=== PATIENT | male | born 1935 | race Caucasian/White ===

== ENCOUNTER 2016-09-26 11:02 | Inpatient (IN) | payer MEDICARE ==
[2016-09-26 11:29] LABS: Glucose,Whole Blood 100 mg/dL (75-99)
[2016-09-26] MEDS ORDERED: SODIUM CHLORIDE 0.9% 500 ML IV ONE (11:38)
[2016-09-26] MEDS ORDERED: MEROPENEM 2 GM in SODIUM CHLORIDE 0.9% 100 ML IVPB STA (11:39)
[2016-09-26 12:29] LABS: ALT 46 U/L (21-72); AST 49 U/L (17-59); Alkaline Phosphatase 89 U/L (38-126); Anion Gap 14 mmol/L; Blood Urea Nitrogen 16 mg/dL (9-20); Calcium 8.8 mg/dL (8.4-10.2); Carbon Dioxide 25 mmol/L (22-30); Chloride 94 mmol/L (98-107); Glucose 99 mg/dL (74-99); Non-African American GFR(MDRD) >60 (>60 ml/min/1.73 sqM); Potassium 3.9 mmol/L (3.5-5.1); Sodium 133 mmol/L (137-145); Total Bilirubin 0.6 mg/dL (0.2-1.3)
--- NOTE | 2016-09-26 12:33 | XR ---
EXAMINATION TYPE: XR chest 2V DATE OF EXAM: 09/26/2016 12:29 PM COMPARISON: 07/27/2016 TECHNIQUE: PA and lateral views submitted. HISTORY: Facial drooping and weakness FINDINGS: Postsurgical change noted. Hyperinflation suggests COPD. Arthropathy of the shoulders noted. Apical pleural thickening seen. No consolidation or pleural effusion. No pneumothorax. Degenerative c hange of the spine noted. IMPRESSION: 1. No acute process. Correlate for COPD.
[2016-09-26 12:37] LABS: Appearance,Urine Clear (Clear); Bacteria,Urine Rare /hpf; Bilirubin,Urine Negative (Negative); Glucose,Urine (UA) Negative (Negative); Ketones,Urine 2+ (Negative); Leukocyte Esterase,Urine Negative (Negative); Mucus,Urine Rare /hpf; Nitrite,Urine Negative (Negative); PH, Urine 5.5 (5.0-8.0); Particle Count 9125; Protein,Urine 1+ (Negative); Specific Gravity,Urine 1.016 (1.001-1.035); Squamous Epithelial Cell,Urine <1 /hpf (0-4); UA Billing (MACRO vs. MICRO) MICRO; Urobilinogen,Urine <2.0 mg/dL (<2.0); WBC,Urine 2 /hpf (0-5)
[2016-09-26 12:37] LABS: Aty Lym Flag Slight; CH 30.6; CHCM 33.5; HCT 41.7 % (39.0-53.0); HDW 2.59; MCH 29.9 pg (25.0-35.0); MCHC 32.6 g/dL (31.0-37.0); MCV 91.7 fL (80.0-100.0); Mean Platelet Volume 6.3; RBC 4.55 m/uL (4.30-5.90); WBC 4.6 k/uL (3.8-10.6); WBC (Perox) 4.81
[2016-09-26 12:39] LABS: HGB 13.6 gm/dL (13.0-17.5)
[2016-09-26 12:49] LABS: Partial Thromboplastin Time 26.9 sec (22.0-30.0); Prothrombin Time 9.9 sec (9.0-12.0)
[2016-09-26 12:52] LABS: Add Differential Manual Differential
[2016-09-26 12:54] LABS: Manual Review Performed; Nucleated Red Blood Cells 0 /100 WBC (0-0); Total Cells Counted 100
[2016-09-26 13:06] LABS: Creatine Kinase MB 2.4 ng/mL (0.0-2.4); Troponin I 0.021 ng/mL (0.000-0.034)
--- NOTE | 2016-09-26 13:06 | CT ---
EXAMINATION TYPE: CT brain wo con DATE OF EXAM: 09/26/2016 12:59 PM COMPARISON: 12/12/2015 INDICATION: Patient complains of right side facial droop and leaning to the right. DLP: 1064 mGycm, Automated exposure control for dose reduction was used. CONTRAST: None CT of the brain is performed utilizing 3 mm thick sections through the posterior fossa and 3 mm thick sections through the remaining calvarium. Study is performed within 24 hours of arrival to the hosp [facility]. No abnormal hyperdensity is present to suggest an acute intracranial hemorrhage. No mass lesion is evident. No acute infarcts are evident. Periventricular white matter hypodensity is present Ventricles and sulci are prominent for the patient age. No temporal horn dilatation is evident. Owens nt cavum septum. Given puree, normal variants are present. There is mucosal thickening through ethmoid air cells. Mucosal thickening is within the left sphenoid sinus and some minimal within the right sphenoid sinus. The frontal sinuses are hypoplastic and cont ain mucosal thickening. No significant change from the November 2015 comparison is evident. IMPRESSIONS: 1. Atrophy with mild periventricular white matter ischemic change. 2. Scattered areas of mucosal thickening. Correlate for pansinusitis.
--- NOTE | 2016-09-26 14:34 | ED ---
General Adult HPI - General Chief complaint: Weakness Stated complaint: Weakness Time Seen by Provider: 09/26/16 11:04 Source: patient Mode of arrival: EMS Limitations: physical limitation - History of Present Illness Initial comments: Presented with generalized weakness presented with a tachycardia he had sinus tachycardia with a ventricular rate of 147 and he also felt weak and he had a fever has been coughing and he had a facial droop his daughter seen him last night he was normal but now she confirms that he has a facial droop he has no other deficits she is able to move all his extremities but he does feel weak he is able to talk he is able to comprehend all the information 1 arm is now weaker than the other one leg is not weak in the other initially was slow to respond but appropriate. He denies any headaches no neck stiffness no chest pain or shortness of breath no abdominal pain no frequency urgency dysuria Severity scale (1-10): 0 - Related Data Home Medications Medication Instructions Recorded Confirmed amLODIPine BESYLATE/BENAZEPRIL 1 cap PO DAILY 03/08/14 09/26/16 [Lotrel 5-10 mg Capsule] Budesonide-Formot 160-4.5 Mcg 2 puff INHALATION RT-BID PRN 12/27/14 09/26/16 [Symbicort 160-4.5 Mcg Inhaler] Ipratropium-Albuterol Nebulize 3 ml INHALATION RT-TID 05/20/16 09/26/16 [Duoneb 0.5 mg-3 mg/3 ml Soln] Tamsulosin HCl [Flomax] 0.4 mg PO DAILY 05/20/16 09/26/16 Furosemide [Lasix] 40 mg PO DAILY PRN 05/23/16 09/26/16 Previous Rx's Medication Instructions Recorded Metoprolol Succinate (ER) [Toprol 25 mg PO BID #60 tab.er.24h 07/31/16 XL] Allergies Allergy/AdvReac Type Severity Reaction Status Date / Time amoxicillin Allergy Unknown Verified 09/26/16 11:49 Penicillins Allergy Unknown Verified 09/26/16 11:49 Review of Systems ROS Statement: Those systems with pertinent positive or pertinent negative responses have been documented in the HPI. ROS Other: All systems not noted in ROS Statement are negative. Past Medical History Past Medical History: Asthma, Coronary Artery Disease (CAD), Cancer, COPD, Hypertension, Osteoarthritis (OA), Prostate Disorder, Respiratory Disorder Additional Past Medical History / Comment(s): PT STATES CABG 10 YEARS AGO. RADIATION THERAPY FOR PROSTATE CA 15 YEARS AGO History of Any Multi-Drug Resistant Organisms: None Reported Past Surgical History: Coronary Bypass/CABG, Heart Catheterization Additional Past Surgical History / Comment(s): right carotid endarectomy Past Anesthesia/Blood Transfusion Reactions: No Reported Reaction Past Psychological History: No Psychological Hx Reported Smoking Status: Former smoker Past Alcohol Use History: None Reported Past Drug Use History: None Reported - Past Family History Father Family Medical History: CVA/TIA, Myocardial Infarction ([place]), Osteoarthritis ([place]) , Prostate Disorder General Exam - General Exam Comments Initial Comments: General: The patient is awake and alert, in no distress, and does not appear acutely ill. GCS is 15 Skin: Skin is warm and dry and no rashes or lesions are noted. Eye: Pupils are equal, round and reactive to light, extra-ocular movements are intact; there is normal conjunctiva bilaterally. Ears, nose, mouth and throat: There are moist mucous membranes and no oral lesions. It is right-sided facial droop Neck: The neck is supple, there is no tenderness or JVD. Cardiovascular: There is a regular rate and rhythm. No murmur, rub or gallop is appreciated. On arrival he had sinus tachycardia, his heart rate was 140 Respiratory: To auscultation bilateral, noticed decreased breath sounds at the bases Gastrointestinal: Soft, non-distended, non-tender abdomen without masses or organomegaly noted. There is no rebound or guarding present. Bowel sounds are unremarkable. Back: There is no tenderness to palpation in the midline. There is no obvious deformity. Musculoskeletal: Normal ROM, no tenderness, There is no pedal edema. There is no calf tenderness or swelling. No cords were appreciated. Neurological: CN II-XII intact, Cranial nerves III through XII are intact. There are no obvious motor or sensory deficits. Coordination appears grossly intact. Speech is normal. Psychiatric: Cooperative, appropriate mood & affect, normal judgment. Limitations: physical limitation Course Vital Signs 09/26/16 09/26/16 09/26/16 11:02 11:15 11:30 Temperature 99.0 F Pulse Rate 131 H 125 H 125 H Respiratory 22 Rate Blood Pressure 140/70 148/70 107/72 Blood Pressure [Right Arm Supine] O2 Sat by Pulse 90 L 97 97 Oximetry 09/26/16 09/26/16 09/26/16 11:45 12:00 13:00 Temperature 101.7 F H Pulse Rate 125 H 125 H Respiratory 18 Rate Blood Pressure 116/59 148/70 Blood Pressure 137/67 [Right Arm Supine] O2 Sat by Pulse 97 97 99 Oximetry 09/26/16 09/26/16 13:36 13:46 Temperature 99.1 F Pulse Rate 93 92 Respiratory 22 18 Rate Blood Pressure 149/67 135/70 Blood Pressure [Right Arm Supine] O2 Sat by Pulse 98 99 Oximetry EKG Findings - EKG Comments: EKG Findings:: EKG shows normal rather sinus tachycardia ventricular rate is 147 RI interval is 134 QRS duration is 108 QT/QTc is 268/419 review of this EKG does not show any ST elevation or ST depression Medical Decision Making - Lab Data Result diagrams: 09/26/16 11:38 09/26/16 11:38 Lab Results 09/26/16 09/26/16 09/26/16 Range/Units 11:26 11:38 11:38 WBC 4.6 (3.8-10.6) k/uL RBC 4.55 (4.30-5.90) m/uL Hgb 13.6 D (13.0-17.5) gm/dL Hct 41.7 (39.0-53.0) % MCV 91.7 (80.0-100.0) fL MCH 29.9 (25.0-35.0) pg MCHC 32.6 (31.0-37.0) g/dL RDW 15.0 (11.5-15.5) % Plt Count 198 (150-450) k/uL Neutrophils % (Manual) 56.0 % Lymphocytes % (Manual) 35.0 % Monocytes % (Manual) 9.0 % Neutrophils # (Manual) 2.6 (1.3-7.7) k/uL Lymphocytes # (Manual) 1.6 (1.0-4.8) k/uL Monocytes # (Manual) 0.4 (0-1.0) k/uL Nucleated RBCs 0 (0-0) /100 WBC Manual Slide Review Performed Poikilocytosis (manual Present PT (9.0-12.0) sec INR (<1.1) APTT (22.0-30.0) sec Sodium 133 L (137-145) mmol/L Potassium 3.9 (3.5-5.1) mmol/L Chloride 94 L (98-107) mmol/L Carbon Dioxide 25 (22-30) mmol/L Anion Gap 14 mmol/L BUN 16 (9-20) mg/dL Creatinine 0.72 (0.66-1.25) mg/dL Est GFR (MDRD) Af Amer >60 (>60 ml/min/1.73 sqM) Est GFR (MDRD) Non-Af >60 (>60 ml/min/1.73 sqM) Glucose 99 (74-99) mg/dL POC Glucose (mg/dL) 100 H (75-99) mg/dL POC Glu Educational Audiologist ID Smitha Gaines Plasma Lactic Acid Asif (0.7-2.0) mmol/L Calcium 8.8 (8.4-10.2) mg/dL Total Bilirubin 0.6 (0.2-1.3) mg/dL AST 49 (17-59) U/L ALT 46 (21-72) U/L Alkaline Phosphatase 89 (38-126) U/L Total Creatine Kinase (55-170) U/L CK-MB (CK-2) (0.0-2.4) ng/mL CK-MB (CK-2) Rel Index Troponin I (0.000-0.034) ng/mL Total Protein 7.0 (6.3-8.2) g/dL Albumin 4.2 (3.5-5.0) g/dL Urine Color Urine Appearance (Clear) Urine pH (5.0-8.0) Ur Specific [place] (1.001-1.035) Urine Protein (Negative) Urine Glucose (UA) (Negative) Urine Ketones (Negative) Urine Blood (Negative) Urine Nitrate (Negative) Urine Bilirubin (Negative) Urine Urobilinogen (<2.0) mg/dL Ur Leukocyte Esterase (Negative) Urine WBC (0-5) /hpf Ur Squamous Epith Cells (0-4) /hpf Urine Bacteria (None) /hpf Urine Mucus (None) /hpf Influenza Type A RNA (Not Detectd) Influenza Type B (PCR) (Not Detectd) 09/26/16 09/26/16 09/26/16 Range/Units 11:38 11:38 11:38 WBC (3.8-10.6) k/uL RBC (4.30-5.90) m/uL Hgb (13.0-17.5) gm/dL Hct (39.0-53.0) % MCV (80.0-100.0) fL MCH (25.0-35.0) pg MCHC (31.0-37.0) g/dL RDW (11.5-15.5) % Plt Count (150-450) k/uL Neutrophils % (Manual) % Lymphocytes % (Manual) % Monocytes % (Manual) % Neutrophils # (Manual) (1.3-7.7) k/uL Lymphocytes # (Manual) (1.0-4.8) k/uL Monocytes # (Manual) (0-1.0) k/uL Nucleated RBCs (0-0) /100 WBC Manual Slide Review Poikilocytosis (manual PT 9.9 (9.0-12.0) sec INR 1.0 (<1.1) APTT 26.9 (22.0-30.0) sec Sodium (137-145) mmol/L Potassium (3.5-5.1) mmol/L Chloride (98-107) mmol/L Carbon Dioxide (22-30) mmol/L Anion Gap mmol/L BUN (9-20) mg/dL Creatinine (0.66-1.25) mg/dL Est GFR (MDRD) Af Amer (>60 ml/min/1.73 sqM) Est GFR (MDRD) Non-Af (>60 ml/min/1.73 sqM) Glucose (74-99) mg/dL POC Glucose (mg/dL) (75-99) mg/dL POC Glu Educational Audiologist ID Plasma Lactic Acid Asif 1.4 (0.7-2.0) mmol/L Calcium (8.4-10.2) mg/dL Total Bilirubin (0.2-1.3) mg/dL AST (17-59) U/L ALT (21-72) U/L Alkaline Phosphatase (38-126) U/L Total Creatine Kinase 377 H (55-170) U/L CK-MB (CK-2) 2.4 (0.0-2.4) ng/mL CK-MB (CK-2) Rel Index 0.6 Troponin I 0.021 (0.000-0.034) ng/mL Total Protein (6.3-8.2) g/dL Albumin (3.5-5.0) g/dL Urine Color Urine Appearance (Clear) Urine pH (5.0-8.0) Ur Specific [place] (1.001-1.035) Urine Protein (Negative) Urine Glucose (UA) (Negative) Urine Ketones (Negative) Urine Blood (Negative) Urine Nitrate (Negative) Urine Bilirubin (Negative) Urine Urobilinogen (<2.0) mg/dL Ur Leukocyte Esterase (Negative) Urine WBC (0-5) /hpf Ur Squamous Epith Cells (0-4) /hpf Urine Bacteria (None) /hpf Urine Mucus (None) /hpf Influenza Type A RNA (Not Detectd) Influenza Type B (PCR) (Not Detectd) 09/26/16 09/26/16 Range/Units 11:56 11:57 WBC (3.8-10.6) k/uL RBC (4.30-5.90) m/uL Hgb (13.0-17.5) gm/dL Hct (39.0-53.0) % MCV (80.0-100.0) fL MCH (25.0-35.0) pg MCHC (31.0-37.0) g/dL RDW (11.5-15.5) % Plt Count (150-450) k/uL Neutrophils % (Manual) % Lymphocytes % (Manual) % Monocytes % (Manual) % Neutrophils # (Manual) (1.3-7.7) k/uL Lymphocytes # (Manual) (1.0-4.8) k/uL Monocytes # (Manual) (0-1.0) k/uL Nucleated RBCs (0-0) /100 WBC Manual Slide Review Poikilocytosis (manual PT (9.0-12.0) sec INR (<1.1) APTT (22.0-30.0) sec Sodium (137-145) mmol/L Potassium (3.5-5.1) mmol/L Chloride (98-107) mmol/L Carbon Dioxide (22-30) mmol/L Anion Gap mmol/L BUN (9-20) mg/dL Creatinine (0.66-1.25) mg/dL Est GFR (MDRD) Af Amer (>60 ml/min/1.73 sqM) Est GFR (MDRD) Non-Af (>60 ml/min/1.73 sqM) Glucose (74-99) mg/dL POC Glucose (mg/dL) (75-99) mg/dL POC Glu Educational Audiologist ID Plasma Lactic Acid Asif (0.7-2.0) mmol/L Calcium (8.4-10.2) mg/dL Total Bilirubin (0.2-1.3) mg/dL AST (17-59) U/L ALT (21-72) U/L Alkaline Phosphatase (38-126) U/L Total Creatine Kinase (55-170) U/L CK-MB (CK-2) (0.0-2.4) ng/mL CK-MB (CK-2) Rel Index Troponin I (0.000-0.034) ng/mL Total Protein (6.3-8.2) g/dL Albumin (3.5-5.0) g/dL Urine Color Yellow Urine Appearance Clear (Clear) Urine pH 5.5 (5.0-8.0) Ur Specific [place] 1.016 (1.001-1.035) Urine Protein 1+ H (Negative) Urine Glucose (UA) Negative (Negative) Urine Ketones 2+ H (Negative) Urine Blood Small H (Negative) Urine Nitrate Negative (Negative) Urine Bilirubin Negative (Negative) Urine Urobilinogen <2.0 (<2.0) mg/dL Ur Leukocyte Esterase Negative (Negative) Urine WBC 2 (0-5) /hpf Ur Squamous Epith Cells <1 (0-4) /hpf Urine Bacteria Rare H (None) /hpf Urine Mucus Rare H (None) /hpf Influenza Type A RNA Not Detected (Not Detectd) Influenza Type B (PCR) Detected A (Not Detectd) Critical Care Time Total Critical Care Time: 40 Critical Care Time: On arrival his heart rate was greater than 140, we hydrated him, he was started some antibiotics considering he had a fever and tachycardia considering the differential diagnosis of sepsis we cultured urine as well as blood tests x- rays were done head CT was ordered considering his facial droop, he did know his about his baseline status find his daughter and sister arrived and they confirmed that this facial droop is new but they have no idea about the timing of onset that's why he is not a candidate for any thrombolytics, he be admitted under Dr. Roman service neurologist be consulted DR. KING WELL INFECTIOUS DISEASE DOCTOR Disposition Clinical Impression: Sepsis, Tachycardia, CVA (cerebral vascular accident), Fever, Influenza A Disposition: ADMITTED IP TO THIS HOSP Condition: Fair
[2016-09-26] MEDS ORDERED: NALOXONE 0.4 MG/ML 1 ML VIAL IV PRN (15:07)
[2016-09-26] MEDS ORDERED: ASPIRIN 81 MG CHEW PO STA (15:12)
[2016-09-26] MEDS ORDERED: FUROSEMIDE 40 MG TAB PO PRN (15:13)
[2016-09-26] MEDS ORDERED: SYMBICORT 160-4.5 MCG INHALER INHALATION PRN (15:13)
[2016-09-26] MEDS: SODIUM CHLORIDE 0.9% 1,000 ML IV SCH ×2 (19:15→22:56)
[2016-09-26] MEDS ORDERED: IPRATROPIUM-ALBUTEROL 3 ML NEB INHALATION SCH (20:00)
[2016-09-26] MEDS: IPRATROPIUM-ALBUTEROL 3 ML NEB INHALATION SCH (20:22)
[2016-09-26] MEDS: BUDESONIDE 1 MG/2 ML NEBU INHALATION SCH (20:22)
[2016-09-26] MEDS: METOPROLOL SUCCINATE (ER) 25 MG TAB.ER.24H PO SCH (22:55)
[2016-09-26] MEDS: MEROPENEM 1 GM in SODIUM CHLORIDE 0.9% 100 ML IVPB SCH (22:55)
[2016-09-26] MEDS: OSELTAMIVIR 75 MG CAP PO SCH (22:55)
[2016-09-27] MEDS: IPRATROPIUM-ALBUTEROL 3 ML NEB INHALATION SCH ×5 (05:39→20:45)
[2016-09-27] MEDS ORDERED: IPRATROPIUM-ALBUTEROL 3 ML NEB INHALATION PRN (05:41)
[2016-09-27] MEDS: BUDESONIDE 1 MG/2 ML NEBU INHALATION SCH ×2 (08:01→20:45)
--- NOTE | 2016-09-27 08:32 | HP ---
DATE OF ADMISSION: 09/26/2016 HISTORY OF PRESENT ILLNESS: An 81-year-old white with significant weakness and pneumonia and shortness of breath and tachycardia worsening over the past week. He had a heart rate in the 147. He has fever, coughing. He is positive for ( ) flu B in the ER and pneumonia and admitted for respiratory distress and COPD exacerbation. He also has severe depression since his has after being for over 50 some years in the last week. HOME MEDICATIONS: 1. Amlodipine benazepril one daily. 2. Symbicort. 3. DuoNeb. 4. Flomax. 5. Lasix. ALLERGIES: AMOXICILLIN and PENICILLIN. REVIEW OF SYSTEMS: PSYCH: Depression. ENDOCRINE: He is losing weight because his . He is severely depressed. Flat affect. CARDIAC: He has a history of coronary artery disease. PULMONARY: He has a history of COPD, asthma, hypertension. : History of prostate disorder. IMMUNE: Negative. Other 14-point review of systems negative except for as mentioned above. He had prostate cancer for 15 years, he had radiation therapy. CABG 10 years, right carotid endarterectomy. He lives at home with his family members, having caregiver watch over him. He is a former smoker. No alcohol. No drugs. PAST FAMILY HISTORY: Father had CVA, TIA, myocardial infarction, osteoarthritis, prostate disorder. Temperature 99.1. Pulse is 120s to 180s. Respiratory rate 18 to 22. Blood pressure is 107 to 140 over 70 to 72, O2 of 99% on room air. Temperature 101.7. EKG shows sinus tachycardia. White count is normal. Hemoglobin is normal. Sodium is 135. BUN and creatinine are 16 and 0.72. Positive ( ). Chest x-ray shows COPD. Lactic acid 1.4. He has elevated creatine kinase due to mild rhabdomyolysis. Negative Troponins. ASSESSMENT: 1. Acute chronic obstructive pulmonary disease exacerbation. 2. Acute ( ) flu type B. 3. Sinus tachycardia. 4. Fever. Influenza A. 5. Prior cerebrovascular accident. IV steroids, updrafts, Tamiflu, IV antibiotics. Please see further orders.
[2016-09-27] MEDS: SODIUM CHLORIDE 0.9% 1,000 ML IV SCH ×2 (09:49→18:52)
[2016-09-27] MEDS: amLODIPine 5 MG TAB PO SCH (09:50)
[2016-09-27] MEDS: OSELTAMIVIR 75 MG CAP PO SCH ×2 (09:50→21:21)
[2016-09-27] MEDS: TAMSULOSIN 0.4 MG CAP.ER.24H PO SCH (09:51)
[2016-09-27] MEDS: LISINOPRIL 10 MG TAB PO SCH (09:51)
[2016-09-27] MEDS: METOPROLOL SUCCINATE (ER) 25 MG TAB.ER.24H PO SCH ×2 (09:51→21:21)
[2016-09-27] MEDS: MEROPENEM 1 GM in SODIUM CHLORIDE 0.9% 100 ML IVPB SCH (10:00)
[2016-09-27] MEDS: ACETAMINOPHEN TAB 325 MG TAB PO PRN (10:00)
[2016-09-27] MEDS ORDERED: LORazepam 2 MG/ML SYRINGE IV PRN (11:00)
--- NOTE | 2016-09-27 11:42 | P.CNPUL ---
History of Present Illness Consult date: 09/27/16 Reason for consult: cough Chief complaint: Fever , cough History of present illness: This is an 81-year-old male who presented to emergency department complaining of generalized weakness and shortness of breath. He also complains of fever and cough. The patient is a very poor historian and there is no family at bedside. Most of the history is obtained from the medical record. The patient was found to be positive for influenza B in the emergency department. His chest x-ray does not show pneumonia at this time. It does show evidence of COPD. The patient does state that he has COPD and uses a "puffer." He did have a temperature of 101.7 in the emergency department. He also had sinus tachycardia in the emergency department. He is a former smoker. He states he lives with his daughter. Review of Systems All systems: negative Past Medical History Past Medical History: Asthma, Coronary Artery Disease (CAD), Cancer, COPD, Hypertension, Osteoarthritis (OA), Prostate Disorder, Respiratory Disorder Additional Past Medical History / Comment(s): PT STATES CABG 10 YEARS AGO. RADIATION THERAPY FOR PROSTATE CA 15 YEARS AGO History of Any Multi-Drug Resistant Organisms: None Reported Past Surgical History: Coronary Bypass/CABG, Heart Catheterization Additional Past Surgical History / Comment(s): right carotid endarectomy Past Anesthesia/Blood Transfusion Reactions: No Reported Reaction Past Psychological History: No Psychological Hx Reported Smoking Status: Former smoker Past Alcohol Use History: None Reported Past Drug Use History: None Reported - Past Family History Father Family Medical History: CVA/TIA, Myocardial Infarction ([place]), Osteoarthritis ([place]) , Prostate Disorder Medications and Allergies Home Medications Medication Instructions Recorded Confirmed Type amLODIPine BESYLATE/BENAZEPRIL 1 cap PO DAILY 03/08/14 09/26/16 History [Lotrel 5-10 mg Capsule] Budesonide-Formot 160-4.5 Mcg 2 puff INHALATION RT-BID PRN 12/27/14 09/26/16 History [Symbicort 160-4.5 Mcg Inhaler] Ipratropium-Albuterol Nebulize 3 ml INHALATION RT-TID 05/20/16 09/26/16 History [Duoneb 0.5 mg-3 mg/3 ml Soln] Tamsulosin HCl [Flomax] 0.4 mg PO DAILY 05/20/16 09/26/16 History Furosemide [Lasix] 40 mg PO DAILY PRN 05/23/16 09/26/16 History Allergies Allergy/AdvReac Type Severity Reaction Status Date / Time amoxicillin Allergy Unknown Verified 09/26/16 11:49 Penicillins Allergy Unknown Verified 09/26/16 11:49 Physical Exam Osteopathic Statement: *. No significant issues noted on an osteopathic structural exam other than those noted in the History and Physical/Consult. Vitals: Vital Signs Temp Pulse Pulse Resp BP BP Pulse Ox 09/27/16 08:13 84 09/27/16 08:01 72 09/27/16 05:47 75 09/27/16 05:39 75 09/27/16 04:00 97.8 F 80 26 H 155/80 96 09/27/16 00:00 98.6 F 77 20 128/70 90 L 09/26/16 19:59 98.7 F 09/26/16 19:51 97.5 F L 82 20 136/67 97 09/26/16 19:46 88 16 131/66 97 09/26/16 18:49 92 18 132/65 97 09/26/16 16:40 72 18 135/64 98 09/26/16 15:56 88 09/26/16 15:46 90 Intake and Output 09/26/16 09/27/16 09/27/16 22:59 06:59 14:59 Intake Total 1680 Balance 1680 Intake: IV 1200 Meropenem 1 gm In Sodium 200 Chloride 0.9% 100 ml @ 200 mls/hr IVPB Q12HR [facility] Rx#:[id number] Sodium Chloride 0.9% 500 1000 ml @ 999 mls/hr IV .Q31M ONE Rx#:[id number] Oral 480 Other: Voiding Method Diaper # Voids 1 Weight 72.575 kg 68 kg Gen.: Patient is alert, poor historian Cardiovascular: Regular rate and rhythm, S1/S2 Lungs: Coarse breath sounds bilaterally Abdomen: Soft nontender nondistended positive bowel sounds Extremities: Left lower extremity dressing clean dry and intact, no edema Results - Laboratory Findings CBC and BMP: 09/26/16 11:38 09/26/16 11:38 PT/INR, D-dimer PT 9.9 sec (9.0-12.0) 09/26/16 11:38 INR 1.0 (<1.1) 09/26/16 11:38 - Diagnostic Findings Chest x-ray: report reviewed, image reviewed Assessment and Plan Plan: Acute exacerbation of COPD Influenza B positive History of tobacco abuse History of CVA Sepsis with SIRS Dehydration Left foot decubitus ulcer POA History of prostate cancer History of coronary artery disease status post CABG History of CEA O2 to maintain saturation greater than equal to 88% Tamiflu Antibiotics: Meropenem per primary team Repeat chest x-ray in a.m. Bronchodilators and Pulmicort Sputum culture Incentive spirometry and pulmonary hygiene IV Solu-Medrol IV fluid hydration GI and DVT prophylaxis: Protonix and heparin SQ Thank you for this consultation we will continue to follow along
--- NOTE | 2016-09-27 12:48 | P.CNNES ---
History of Present Illness Consult date: 09/27/16 Reason for Consult: Patient with facial droop and weakness and possible stroke. History of Present Illness: This patient is a 81-year-old right-handed white male who was brought into the emergency room yesterday for symptoms of generalized weakness and shortness of breath. Patient lives with his daughter and apparently she noted that he was having high-grade fever as well as some evidence of right-sided facial droop. She was concerned as his fever was quite high and he was showing signs of worsening weakness. He was brought into the emergency room yesterday where he was further evaluated. The patient is a very poor historian and there is no family member at bedside to provide further history. Apparently in the ER he did undergo a computed tomography scan of the brain which revealed atrophy and mild periventricular white matter changes. Scattered areas of mucosal thickening and pansinusitis was noted as well. The patient's temperature in the ER was 101.7. He was also showing signs of severe sinus tachycardia. He has a history of having undergone CABG procedure about 10 years ago. He also has a history of prostate cancer. As noted he is a very poor historian. He is now stating that the right facial droop has been present previously. Both his daughter and a sister stated to the ER physician that the facial droop was new. Patient denies any weakness in his right arm or leg at this time. He was not felt to be a candidate for any thrombolytic agents as he was out of the therapeutic window. He is now being treated for influenza A as well. Given the new finding of right facial droop there is concern for possibility of ischemic stroke. He has now been admitted for a full stroke evaluation. His initial evaluation in the ER revealed his NIH stroke scale to be 2.0. Patient is now admitted and neurology has been consulted for further evaluation and recommendations. Review of Systems Constitutional: Denies chills, Denies fever Eyes: denies blurred vision, denies pain Ears, nose, mouth and throat: Denies headache, Denies sore throat Cardiovascular: Denies chest pain, Denies shortness of breath Respiratory: Denies cough Gastrointestinal: Denies abdominal pain, Denies diarrhea, Denies nausea, Denies vomiting Musculoskeletal: Denies myalgias Integumentary: Denies pruritus, Denies rash Neurological: Reports change in mentation, Reports confusion, Reports tingling, Denies numbness, Denies weakness Psychiatric: Denies anxiety, Denies depression Endocrine: Denies fatigue, Denies weight change Past Medical History Past Medical History: Asthma, Coronary Artery Disease (CAD), Cancer, COPD, Hypertension, Osteoarthritis (OA), Prostate Disorder, Respiratory Disorder Additional Past Medical History / Comment(s): PT STATES CABG 10 YEARS AGO. RADIATION THERAPY FOR PROSTATE CA 15 YEARS AGO History of Any Multi-Drug Resistant Organisms: None Reported Past Surgical History: Coronary Bypass/CABG, Heart Catheterization Additional Past Surgical History / Comment(s): right carotid endarectomy Past Anesthesia/Blood Transfusion Reactions: No Reported Reaction Past Psychological History: No Psychological Hx Reported Smoking Status: Former smoker Past Alcohol Use History: None Reported Past Drug Use History: None Reported - Past Family History Father Family Medical History: CVA/TIA, Myocardial Infarction ([place]), Osteoarthritis (OA) , Prostate Disorder Medications and Allergies Home Medications Medication Instructions Recorded Confirmed Type amLODIPine BESYLATE/BENAZEPRIL 1 cap PO DAILY 03/08/14 09/26/16 History [Lotrel 5-10 mg Capsule] Budesonide-Formot 160-4.5 Mcg 2 puff INHALATION RT-BID PRN 12/27/14 09/26/16 History [Symbicort 160-4.5 Mcg Inhaler] Ipratropium-Albuterol Nebulize 3 ml INHALATION RT-TID 05/20/16 09/26/16 History [Duoneb 0.5 mg-3 mg/3 ml Soln] Tamsulosin HCl [Flomax] 0.4 mg PO DAILY 05/20/16 09/26/16 History Furosemide [Lasix] 40 mg PO DAILY PRN 05/23/16 09/26/16 History Allergies Allergy/AdvReac Type Severity Reaction Status Date / Time amoxicillin Allergy Unknown Verified 09/26/16 11:49 Penicillins Allergy Unknown Verified 09/26/16 11:49 Physical Examination - Vital Signs Vital Signs: Vital Signs Temp Pulse Pulse Resp BP BP Pulse Ox 09/27/16 08:13 84 09/27/16 08:01 72 09/27/16 05:47 75 09/27/16 05:39 75 09/27/16 04:00 97.8 F 80 26 H 155/80 96 09/27/16 00:00 98.6 F 77 20 128/70 90 L 09/26/16 19:59 98.7 F 09/26/16 19:51 97.5 F L 82 20 136/67 97 09/26/16 19:46 88 16 131/66 97 09/26/16 18:49 92 18 132/65 97 09/26/16 16:40 72 18 135/64 98 09/26/16 15:56 88 09/26/16 15:46 90 Intake and Output 09/26/16 09/27/16 09/27/16 22:59 06:59 14:59 Intake Total 1680 Balance 1680 Intake: IV 1200 Meropenem 1 gm In Sodium 200 Chloride 0.9% 100 ml @ 200 mls/hr IVPB Q12HR ÓSCAR Rx#:[id number] Sodium Chloride 0.9% 500 1000 ml @ 999 mls/hr IV .Q31M ONE Rx#:[id number] Oral 480 Other: Voiding Method Diaper # Voids 1 Weight 72.575 kg 68 kg - Constitutional General appearance: average body habitus, cooperative - EENT EENT: PERRL, mucous membranes moist - Respiratory Respiratory: lungs clear, normal breath sounds - Cardiovascular Cardiovascular: regular rate, normal S1, normal S2 Extremities: no peripheral edema bilaterally - Gastrointestinal Gastrointestinal: normoactive bowel sounds - Integumentary Integumentary: normal - Neurologic Cranial nerve examination: PERRL, EOMI, VFF, V1/V2/V3 grossly intact, intact gag reflex, intact corneal reflex, facial droop (Patient has a right upper motor neuron facial weakness pattern.), normal palatal elevation Speech examination: intact Sensorimotor examination: intact Detailed motor examination: grossly full strength in all extremities Detailed sensory examination: intact Reflex and gait examination: intact Reflexes: 1+: ankle, bicep, knee, tricep - Musculoskeletal Musculoskeletal: no pain - Psychiatric Psychiatric: mood/affect appropriate, cooperative Results - Laboratory Findings CBC and BMP: 09/26/16 11:38 09/26/16 11:38 Assessment and Plan (1) Acute ischemic left MCA stroke Status: Acute Code(s): I63.512 - CEREB INFRC D/T UNSP OCCLS OR STENOS OF LEFT MID CEREB ART (2) Influenza A Status: Acute Code(s): J10.1 - FLU DUE TO OTH IDENT INFLUENZA VIRUS W OTH RESP MANIFEST (3) COPD exacerbation Status: Acute Code(s): J44.1 - CHRONIC OBSTRUCTIVE PULMONARY DISEASE W (ACUTE ) EXACERBATION (4) Paroxysmal a-fib Status: Acute Code(s): I48.0 - PAROXYSMAL ATRIAL FIBRILLATION Plan: This patient is a 81-year-old right-handed white male who was initially admitted to Hospital with symptoms of generalized weakness and shortness of breath. Apparently his daughter noticed right-sided facial droop which was a new finding. He was brought into the emergency room for further evaluation of possible stroke. He was found to have evidence of influenza A. He was septic and having fever at home as well. He is a very poor historian. His CAT scan of the brain failed to reveal any evidence of acute stroke. He has been severely depressed since the passing of his . He is been losing weight apparently as well. We have recommended a complete stroke evaluation for the patient. We will obtain an MRI of the brain for further evaluation of left hemispheric stroke. He does have a history of paroxysmal atrial fibrillation in the past as well. His overall prognosis at this time remains very guarded. Time with Patient: Greater than 30
[2016-09-27] MEDS: HEPARIN SODIUM,PORCINE 5,000 UNIT/ML 1 ML VIAL SQ SCH ×2 (16:00→23:49)
[2016-09-27] MEDS: FLUoxetine HCL 10 MG CAP PO SCH (16:00)
--- NOTE | 2016-09-27 16:00 | US ---
EXAMINATION TYPE: US carotid duplex BILAT DATE OF EXAM: 09/27/2016 3:34 PM COMPARISON: 12/13/2015 CLINICAL HISTORY: acute stroke. Previous right CCA surgery per patient. EXAM MEASUREMENTS: RIGHT: Peak Systolic Velocity (PSV) cm/sec ----- Right CCA: 95.8 ----- Right ICA: 106.4 ----- Right ECA: 199.6 ICA/CCA ratio: 1.1 RIGHT: End Diastole cm/sec ----- Right CCA: 28.9 ----- Right ICA: 33.8 ----- Right ECA: 20.7 LEFT: Peak Systolic Velocity (PSV) cm/sec ----- Left CCA: 51.4 ----- Left ICA: 0 ----- Left ECA: 176.3 ICA/CCA ratio: N/A- ICA total occlusion LEFT: End Diastole cm/sec ----- Left CCA: 51.4 ----- Left ICA: 0 ----- Left ECA: 176.3 VERTEBRALS (direction of flow): Right Vertebral: Antegrade Left Vertebral: Antegrade FINDINGS: Bilateral wall thickening. Plaque seen in bilateral CCA and bulbs. No flow detected in le ft ICA= total occlusion. High velocity seen in bilateral ECA's. IMPRESSION: 1. 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 Stable from previou s exam. 2. No significant hemodynamic stenosis involving the right internal carotid artery.
--- NOTE | 2016-09-27 17:03 | CONS ---
DATE OF CONSULTATION: 09/27/2016 REASON FOR CONSULTATION: Shortness of breath, sepsis and pneumonia. HISTORY OF PRESENT ILLNESS: Mr. Holland Garcia is well known to me. He is an 81-year-old male with significant cardiovascular disease. The patient is being followed in office as well. He presented into the emergency department with increasing shortness of breath and generalized weakness. Patient has been running a fever as well, was tachypneic, tachycardic as well and was evaluated in the emergency department. This patient eventually has been admitted to the hospital. The patient has been found to have influenza B and has been admitted to the hospital. Patient was seen, evaluated, examined earlier this morning. Care plan discussed with the primary service as well. In addition to above, patient has some weakness on the face as well. PAST MEDICAL HISTORY: Significant for coronary artery disease, history of severe COPD, hypertension, hypertensive cardiovascular disease, degenerative joint disease and osteoarthritis. PAST SURGICAL HISTORY: Significant for CABG, prostate cancer, history of cardiac cath, angiogram, history of RCA, right carotid endarterectomy. FAMILY HISTORY AND SOCIAL HISTORY: Lives with his . Extensive history of smoking and nicotine use, quit several years ago. ALLERGIES: AMOXICILLIN AND PENICILLIN. MEDICATIONS AT HOME: Lasix 40 mg daily, Tamsulosin 0.4 mg daily, DuoNeb updraft 4 times a day, Symbicort 160/4.5 two times a day, amlodipine is 1 capsule daily. REVIEW OF SYSTEMS: Otherwise unremarkable and noncontributory except as dictated above. The patient has been evaluated by neurology service as well. On examination, most recent vitals include blood pressure 155/80, respiratory rate in mid 20s, heart rate 80, temperature 98, saturation 95% to 96%. HEENT: Atraumatic, normocephalic. Pharynx is clear without exudate. NECK: Supple without lymphadenopathy, jugular venous distention or carotid bruit. LUNGS: Bilateral coarse breath sounds present with fine expiratory rhonchi. HEART: Regular rate and rhythm. ABDOMEN: Soft. No rebound or rigidity. EXTREMITIES: Patient does have component of right-sided weakness. CT scan of the head revealed some periventricular changes Other laboratory data reviewed as well. He. White cell count is 4600, hemoglobin 13 and hematocrit 41, platelets 198,000. PT, and PTT within normal limits. Sodium 130, potassium 3.9. BUN and creatinine 16 and 0.72. LFTs are normal. Urinalysis with a few WBC, RBCs are present. Influenza B is positive. The chest x-ray and EKG performed in the emergency room reviewed sinus tachycardia with incomplete right bundle branch block. The chest x-ray performed in the emergency department reviewed severe COPD-like changes. CT scan of the brain as above. IMPRESSION: 1. Severe sepsis associated with influenza, pneumonia, type B positive on PCR. 2. Severe chronic obstructive pulmonary disease, emphysema. 3. Possible left middle cerebral artery infarct versus transient ischemic attack with evidence of facial drooping on the right side. Neurology service is following 4. Coronary artery disease, hypertension, hypertensive cardiovascular disease. PLAN AND RECOMMENDATIONS: As above. Continue supportive care. Follow clinical course closely. Further recommendations pending Continue current medication. Will follow.
--- NOTE | 2016-09-27 18:02 | CONS ---
DATE OF CONSULTATION: 09/27/2016 REASON FOR CONSULTATION: 1. Acute influenza. 2. Question of pneumonia. 3. Left heel pressure ulcer. HISTORY OF PRESENT ILLNESS: The patient is an 81-year-old male who has been brought into the [facility] ER with mental status changes along with tachycardia and tachypnea. Apparently the patient also had a fever, and some coughing has been noticed along with a facial droop by his daughter. Subsequently the patient was evaluated by the ER physician. Patient did have a CT of the brain that was negative for any bleed. Some mucosal thickening was noticed. He did have a chest x-ray was reported as showing no acute process; correlate for COPD. Patient, who did have a fever of 101 degrees Fahrenheit, did have an influenza PCR sent. Influenza B was positive. His urine was negative. The patient did have a normal white count of 4.6. Patient has been started on Tamiflu to hospital and admitted to hospital. Meropenem was added for the concern about possible pneumonia. I was asked to see the patient for further recommendations. In addition, patient also has an unstageable pressure ulcer to his heel area. Apparently the patient has been mostly lying in bed after the of his with no significant change in his position. The patient is currently too lethargic and unable to answer any questions; no family member was available at the bedside, so most of the information has been obtained from review of the chart and talking to the nursing staff. Review of systems could not be reliably obtained; positives have been mentioned in the HPI. Past medical history is significant for: 1. Asthma. 2. Coronary artery disease. 3. COPD. 4. Hypertension. 5. Osteoarthritis. 6. Benign prostatic hypertrophy. 7. Prostate carcinoma. PAST SURGICAL HISTORY: 1. Coronary artery bypass grafting. 2. Heart catheterization. SOCIAL HISTORY: Remote history of smoking. No drinking or any drug use. FAMILY HISTORY: Father with history of CVA and AR. ALLERGIES: AMOXICILLIN and PENICILLIN; reaction not known. Medications currently include: 1. Tylenol. 2. DuoNeb. 3. Norvasc. 4. Pulmicort. 5. Prozac. 6. Heparin. 7. Zestril. 8. Ativan. 9. Solu-Medrol. 10. Toprol XL. 11. Narcan. 12. Tamiflu. 13. Protonix. 14. Flomax. On examination, blood pressure is 89/54. Prior to that the patient did have a normal blood pressure at 126/52. Pulse is 88, temperature 97.9. He is 98% on 2 L nasal cannula. General description is an elderly male lying in bed in no distress. No tachypnea or accessory muscle of respiration use. HEENT EXAMINATION: No pallor or scleral icterus. Oral mucous membrane dry. NECK: Trachea is central. No thyromegaly. LUNGS: Unlabored breathing. Clear to auscultation anteriorly. No wheeze or crackle. HEART: S1, S2. Regular rate and rhythm. ABDOMEN: Soft. No tenderness. No guarding or rigidity. EXTREMITIES: No edema of the feet. Examination of the left heel did show an unstageable pressure ulcer with black eschar, but there is no significant surrounding swelling, redness or any drainage. LABS: Hemoglobin is 13.6. White count is normal at 4.6. BUN of 16, creatinine 0.72. Liver enzymes are normal. Urine has been negative. Influenza B PCR was positive. Chest x-ray report negative for any pneumonia. DIAGNOSTIC IMPRESSION AND PLAN: 1. Patient with admission to hospital with tachypnea and tachycardia with a fever of 101.7, likely secondary to underlying acute influenza with influenza B PCR being positive. Clinically doubt pneumonia, as no significant findings on lung auscultation, chest report reported negative for any acute process, and the patient with no elevated white count. 2. Patient who does have an unstageable pressure ulcer on the left heel with a black eschar but no surrounding redness. PLAN: 1. The patient to continue Tamiflu 75 mg p.o. twice a day to finish a 5-day course of therapy. 2. Clinical suspicion low for pneumonia. Chest x-ray was negative. Will discontinue the Meropenem and watch him closely off antibiotics. 3. Will supply protective dressing to the left heel and keep it dry. Do not apply any cream or lotions. 4. Will follow up on the clinical condition and cultures to further adjust medication if needed. Thank you for this consultation. Will follow this patient along with you.
--- NOTE | 2016-09-27 19:05 | MR ---
EXAMINATION TYPE: MR brain wo con DATE OF EXAM: 09/27/2016 6:53 PM COMPARISON: NONE HISTORY: Patient complains of right side facial droop and leaning to the right. Acute left hemispher ic stroke. Standard multiplanar, multisequence MRI departmental protocol Multiplanar, multisequence images of the brain were acquired. Diffusion weighted imaging was performe d. FINDINGS: There is significant enlargement of the ventricles. There is subependymoma increased signal on the FLAIR images in the periventricular white matter. There is cerebral cortical atrophy. Brainst em is intact. There is no sign of a posterior fossa mass. There is no midline shift. There is no sign of intracranial hemorrhage. There are patchy 1 cm foci of cortical increased signal on the FLAIR alton ges in both parietal lobes. There is extensive mucosal thickening in all the paranasal sinuses. IMPRESSION: Severe normal pressure type hydrocephalus. Subependymal white matter signal probably related subepend ymal mild edema and pulsation. Multiple white matter cortical foci in both parietal lobes could relat e to multiple infarcts. Severe thinning of the corpus callosum. I do not suspect obstructive hydrocep halus in view of the relatively normal appearance of the fourth ventricle. Severe pansinusitis.
[2016-09-27] MEDS: methylPREDNISolone SOD SUCCI 40 MG/ML 1 ML VIAL IV SCH (21:21)
[2016-09-28] MEDS: SODIUM CHLORIDE 0.9% 1,000 ML IV SCH ×2 (06:07→08:38)
[2016-09-28 06:30] LABS: Basophils % (A) 0 %; CH 30.4; CHCM 32.8; Eosinophils % (A) 0 %; HCT 38.4 % (39.0-53.0); HDW 2.77; HGB 12.4 gm/dL (13.0-17.5); Luc # (Auto) 0.03; Luc % (Auto) 2; Lymphocytes # (A) 0.4 k/uL (1.0-4.8); Lymphocytes % (A) 23 %; MCHC 32.2 g/dL (31.0-37.0); MCV 93.2 fL (80.0-100.0); Mean Platelet Volume 6.4; Monocytes % (A) 3 %; Neutrophils # (A) 1.1 k/uL (1.3-7.7); Neutrophils % (A) 72 %; RBC 4.12 m/uL (4.30-5.90); RDW 14.8 % (11.5-15.5); WBC (Perox) 1.71
[2016-09-28 06:36] LABS: WBC 1.5 k/uL (3.8-10.6)
[2016-09-28 06:41] LABS: ALT 51 U/L (21-72); AST 44 U/L (17-59); Alkaline Phosphatase 74 U/L (38-126); Anion Gap 9 mmol/L; Blood Urea Nitrogen 18 mg/dL (9-20); Calcium 8.5 mg/dL (8.4-10.2); Carbon Dioxide 26 mmol/L (22-30); Chloride 100 mmol/L (98-107); Glucose 147 mg/dL (74-99); Non-African American GFR(MDRD) >60 (>60 ml/min/1.73 sqM); Sodium 135 mmol/L (137-145); Total Bilirubin 0.3 mg/dL (0.2-1.3)
[2016-09-28] MEDS: PANTOPRAZOLE 40 MG TABLET PO SCH (06:50)
[2016-09-28] MEDS: HEPARIN SODIUM,PORCINE 5,000 UNIT/ML 1 ML VIAL SQ SCH ×3 (07:54→23:26)
[2016-09-28] MEDS: amLODIPine 5 MG TAB PO SCH (07:54)
[2016-09-28] MEDS: methylPREDNISolone SOD SUCCI 40 MG/ML 1 ML VIAL IV SCH ×2 (07:54→20:11)
[2016-09-28] MEDS: FLUoxetine HCL 10 MG CAP PO SCH (07:54)
[2016-09-28] MEDS: LISINOPRIL 10 MG TAB PO SCH (07:54)
[2016-09-28] MEDS: OSELTAMIVIR 75 MG CAP PO SCH ×2 (07:55→20:11)
[2016-09-28] MEDS: METOPROLOL SUCCINATE (ER) 25 MG TAB.ER.24H PO SCH ×2 (07:55→20:11)
[2016-09-28] MEDS: TAMSULOSIN 0.4 MG CAP.ER.24H PO SCH (07:55)
[2016-09-28] MEDS: BUDESONIDE 1 MG/2 ML NEBU INHALATION SCH ×2 (08:13→20:28)
[2016-09-28] MEDS: IPRATROPIUM-ALBUTEROL 3 ML NEB INHALATION SCH ×4 (08:14→20:28)
[2016-09-28 08:15] LABS: Basophils % (A) 0 %; CH 30.4; CHCM 33.2; Eosinophils % (A) 1 %; HCT 37.7 % (39.0-53.0); HDW 2.78; HGB 12.6 gm/dL (13.0-17.5); Luc # (Auto) 0.03; Luc % (Auto) 2; Lymphocytes # (A) 0.4 k/uL (1.0-4.8); Lymphocytes % (A) 29 %; MCH 30.8 pg (25.0-35.0); MCHC 33.4 g/dL (31.0-37.0); Mean Platelet Volume 6.4; Monocytes % (A) 2 %; Neutrophils # (A) 0.9 k/uL (1.3-7.7); Neutrophils % (A) 66 %; RDW 14.7 % (11.5-15.5); WBC (Perox) 1.55
[2016-09-28 08:16] LABS: WBC 1.4 k/uL (3.8-10.6)
--- NOTE | 2016-09-28 08:23 | XR ---
EXAMINATION TYPE: XR chest 1V portable DATE OF EXAM: 09/28/2016 7:21 AM COMPARISON: 09/26/2016 INDICATION: Pneumonia TECHNIQUE: Single frontal view of the chest is obtained. FINDINGS: The heart size is normal. The pulmonary vasculature is normal. The lungs are clear. IMPRESSION: 1. No acute pulmonary process.
[2016-09-28 12:25] LABS: Glucose,Whole Blood 127 mg/dL (75-99)
[2016-09-28] MEDS: INSULIN LISPRO (humaLOG) 300 UNIT/3 ML VIAL SQ SCH ×3 (12:29→20:35)
--- NOTE | 2016-09-28 15:43 | P.PN ---
Subjective This patient is a 81-year-old right-handed white male who was admitted to hospital with shortness of breath and sepsis. Patient had evidence of severe sepsis and was positive for influenza type B. He also has a history of chronic obstructive pulmonary disease. Neurology was evaluating the patient for possible stroke. He had evidence of right facial droop. He was sent for MRI of the brain yesterday which reveals evidence of severe normal pressure-type hydrocephalus. There was subependymal white matter changes noted as well multiple areas of old infarction was also noted. There was no evidence of obstructive hydrocephalus on the MRI. The patient continues to do fairly well with no significant changes in his overall neurological status. 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 This can be further evaluated by neurosurgery. At this time he does not appear to have evidence of obstructive hydrocephalus. MRI failed to reveal any acute stroke on diffusion-weighted imaging. We did discuss the results of the MRI today with the patient in detail. He does not wish to proceed with any neurosurgical intervention for the NPH at this time. Given his age she is at risk for any type of intervention at this time. The patient continues to demonstrate right facial droop. He has no significant weakness in the right arm or leg on examination. He denies any headache or nausea vomiting symptoms at this time. He is being treated for underlying sepsis. Patient otherwise seems to be doing about the same. We will continue close neurological follow-up for the patient during this admission. Objective - Vital Signs Vital signs: Vital Signs Temp 97 F L 09/28/16 12:26 Pulse 82 09/28/16 12:26 Resp 18 09/28/16 12:26 BP 149/85 09/28/16 12:26 Pulse Ox 97 09/28/16 12:26 Intake & Output 09/27/16 09/28/16 09/28/16 18:59 06:59 18:59 Intake Total 2079 222 Output Total 200 Balance 2079 22 Weight 68 kg 69.3 kg Intake: Intake, IV Titration 1200 Amount Meropenem 1 gm In Sodium 200 Chloride 0.9% 100 ml @ 200 mls/hr IVPB Q12HR ÓSCAR Rx#:[id number] Sodium Chloride 0.9% 1, 1000 000 ml @ 100 mls/hr IV . Q10H ÓSCAR Rx#:[id number] Oral 880 222 Output: Urine 200 Other: Voiding Method Diaper Diaper Diaper # Voids 1 1 2 - Exam Physical examination: PHYSICAL EXAMINATION: Patient is resting comfortably in bed. VITAL SIGNS: Blood pressure is [149/85]. Heart rate is [82]. Respiration is [18] . Temperature is [97.0]. HEENT: Head is atraumatic, neck is supple, there were no carotid bruits. CHEST: Lungs are clear to auscultation and percussion. CARDIAC: S1, S2 normal rate and rhythm. There is no murmur. ABDOMEN: Soft and nontender. Bowel sounds are present. EXTREMITIES: There is no pedal edema. Peripheral pulses are present. Neurological examination: Patient's neurological examination is unchanged from yesterday. Patient is sitting up in chair at bedside. He is able to follow simple commands. He is alert and oriented 3. - Labs CBC & Chem 7: 09/28/16 07:58 09/28/16 06:01 Labs: Abnormal Lab Results - Last 24 Hours (Table) 09/28/16 09/28/16 09/28/16 Range/Units 06:01 06:01 07:58 WBC 1.5 L* 1.4 L* (3.8-10.6) k/uL RBC 4.12 L 4.10 L (4.30-5.90) m/uL Hgb 12.4 L 12.6 L (13.0-17.5) gm/dL Hct 38.4 L 37.7 L (39.0-53.0) % Neutrophils # 1.1 L 0.9 L (1.3-7.7) k/uL Lymphocytes # 0.4 L 0.4 L (1.0-4.8) k/uL Sodium 135 L (137-145) mmol/L Creatinine 0.59 L (0.66-1.25) mg/dL Glucose 147 H (74-99) mg/dL POC Glucose (mg/dL) (75-99) mg/dL Total Protein 6.0 L (6.3-8.2) g/dL Albumin 3.3 L (3.5-5.0) g/dL 09/28/16 Range/Units 12:23 WBC (3.8-10.6) k/uL RBC (4.30-5.90) m/uL Hgb (13.0-17.5) gm/dL Hct (39.0-53.0) % Neutrophils # (1.3-7.7) k/uL Lymphocytes # (1.0-4.8) k/uL Sodium (137-145) mmol/L Creatinine (0.66-1.25) mg/dL Glucose (74-99) mg/dL POC Glucose (mg/dL) 127 H (75-99) mg/dL Total Protein (6.3-8.2) g/dL Albumin (3.5-5.0) g/dL Assessment and Plan (1) Acute ischemic left MCA stroke Status: Acute Code(s): I63.512 - CEREB INFRC D/T UNSP OCCLS OR STENOS OF LEFT MID CEREB ART (2) Influenza A Status: Acute Code(s): J10.1 - FLU DUE TO OTH IDENT INFLUENZA VIRUS W OTH RESP MANIFEST (3) COPD exacerbation Status: Acute Code(s): J44.1 - CHRONIC OBSTRUCTIVE PULMONARY DISEASE W (ACUTE ) EXACERBATION (4) Paroxysmal a-fib Status: Acute Code(s): I48.0 - PAROXYSMAL ATRIAL FIBRILLATION Plan: This patient is a 81-year-old right-handed white male who was initially admitted to Hospital with symptoms of generalized weakness and shortness of breath. Apparently his daughter noticed right-sided facial droop which was a new finding. He was brought into the emergency room for further evaluation of possible stroke. He was found to have evidence of influenza A. He was septic and having fever at home as well. He is a very poor historian. His CAT scan of the brain failed to reveal any evidence of acute stroke. He has been severely depressed since the passing of his . He is been losing weight apparently as well. We have recommended a complete stroke evaluation for the patient. We will obtain an MRI of the brain for further evaluation of left hemispheric stroke. He does have a history of paroxysmal atrial fibrillation in the past as well. Patient underwent MRI of the brain yesterday. Results are as noted above. There is evidence of normal pressure hydrocephalus with multiple areas of old stroke. There is no evidence of obstructive hydrocephalus. This MRI finding can be further followed up in the outpatient neurosurgery clinic. Given the patient's age and multiple other medical issues he is not considered today strong surgical candidate. We did discuss the MRI findings today with the patient at bedside. He does not wish to proceed with any neurosurgical intervention for NPH at this time given his age. We would tend to agree with him at this time as he is not showing significant symptoms of NPH at this time. MRI failed to reveal any evidence of acute left hemispheric stroke. There is multiple areas of old stroke seen on the MRI. He may benefit from inpatient rehab or [facility] placement due to his general medical debility. We will continue to follow his progress during this admission. His overall prognosis at this time remains very guarded.
[2016-09-28 16:53] LABS: Glucose,Whole Blood 198 mg/dL (75-99)
--- NOTE | 2016-09-28 19:48 | PN ---
Mr. Holland Garcia is an 81-year-old with influenza pneumonia and acute respiratory failure related to pneumonia. Patient has a history of coronary artery disease, congestive heart failure, hypertension, hypertensive cardiovascular disease. Patient appears to have a right middle cerebral artery infarct as well. Neuro service is following. He is awake and alert, breathing comfortably. No obvious distress present. Hemodynamic status is stable. Last set of vitals include blood pressure is 150/85, respiratory rate 20, pulse 82, temperature 98, saturation 97% on 2 liters oxygen. HEENT: Unremarkable. NECK: Supple. LUNGS: Good air entry bilaterally with expiratory rhonchi. HEART: Regular rate and rhythm. S1 and S2 audible. ABDOMEN: Soft. NEUROLOGICAL EXAMINATION: Awake and alert. Patient remains on broad-spectrum antibiotics and is also on DuoNeb, Tamiflu, sliding scale insulin. Last chest x-ray earlier performed, reviewed, overall is stable. IMPRESSION: 1. Severe sepsis associated with influenza pneumonia. 2. Normal pressure hydrocephalus. 3. Severe pansinusitis has been seen. Will defer the initiation of antibiotics to ID services as they have been following. However, of concern is that white cell count is very low. Will follow.
[2016-09-28 20:34] LABS: Glucose,Whole Blood 150 mg/dL (75-99)
[2016-09-28] MEDS ORDERED: FUROSEMIDE 10 MG/ML 4 ML VIAL IV STA (20:58)
--- NOTE | 2016-09-28 21:53 | EEG ---
DATE OF SERVICE: 09/28/2016 INDICATIONS FOR EXAMINATION: This patient is an 81 -year-old male being evaluated for right sided facial droop and possible TIA versus stroke. AGE: 81Y EEG FINDINGS: A routine 21 channel awake digital EEG recording was accomplished utilizing the 10-20 international system with bipolar and referential montages. The background activity in the most alert resting state consists of a low to medium amplitude, poorly developed and poorly sustained 6 Hz activity over the posterior head regions. This posterior rhythm attenuates to eye opening. There is a small amount of low amplitude 18-20 Hz beta activity seen maximally over the anterior head regions. Muscle and movement artifact was observed on a few occasions during the tracing. Hyperventilation was not performed. Photic stimulation at flash frequencies of 2-30 Hz produced a minimal occipital driving response. No epileptiform discharges were seen. IMPRESSION: This EEG is moderately abnormal in a diffuse fashion due to slowing of the EEG background. The EEG failed to reveal any focal, lateralized, or epileptiform abnormalities. Clinical correlation is recommended.
[2016-09-29] MEDS: SODIUM CHLORIDE 0.9% 1,000 ML IV SCH ×3 (01:20→18:21)
[2016-09-29 06:15] LABS: Glucose,Whole Blood 138 mg/dL (75-99)
[2016-09-29] MEDS: INSULIN LISPRO (humaLOG) 300 UNIT/3 ML VIAL SQ SCH ×4 (06:36→21:16)
[2016-09-29] MEDS: PANTOPRAZOLE 40 MG TABLET PO SCH (06:36)
[2016-09-29] MEDS: IPRATROPIUM-ALBUTEROL 3 ML NEB INHALATION SCH ×4 (07:14→20:03)
[2016-09-29] MEDS: BUDESONIDE 1 MG/2 ML NEBU INHALATION SCH ×2 (07:14→20:03)
--- NOTE | 2016-09-29 07:39 | PN ---
DATE OF SERVICE: 09/28/2016 Reason for follow-up is acute influenza. INTERVAL HISTORY: The patient is afebrile. He is more awake and alert today. He is breathing comfortably. Denies any significant chest pain. No shortness of breath or cough. No abdominal pain. The only pain is in his left heel area. On examination, blood pressure 149/88 with a pulse of 75, temperature 96.8, he is 950% on room air. General description is an elderly male up in the bed in no distress. RESPIRATORY SYSTEM: Unlabored breathing. Clear to auscultation. HEART: S1, S2. Regular rate and rhythm. ABDOMEN: Soft, no tenderness. Left heel wound is currently dressed up with no obvious drainage on that dressing. LABS: Hemoglobin 12.6, white count down to 1.4. BUN of 18, creatinine 0.59. Blood culture negative. Urine is negative. Chest x-ray today negative for any pneumonia. DIAGNOSTIC IMPRESSION AND PLAN: 1. Patient with acute influenza type B for which the patient will continue Tamiflu to finish a 5 day course of therapy. 2. Patient with no evidence of any secondary bacterial infection. Did have some leukopenia. Will repeat a CBC tomorrow in view of resolution of fever and overall clinical improvement and chest x-ray negative, will hold on any empiric antibiotics. 3. Patient with left heel wound. Continue with dry protective dressing and keep the area off the pressure. Family present at the bedside. Questions and concerns answered.
[2016-09-29] MEDS: HEPARIN SODIUM,PORCINE 5,000 UNIT/ML 1 ML VIAL SQ SCH ×3 (08:58→23:16)
[2016-09-29] MEDS: METOPROLOL SUCCINATE (ER) 25 MG TAB.ER.24H PO SCH ×2 (08:59→21:15)
[2016-09-29] MEDS: OSELTAMIVIR 75 MG CAP PO SCH ×2 (08:59→21:15)
[2016-09-29] MEDS: FLUoxetine HCL 10 MG CAP PO SCH (08:59)
[2016-09-29] MEDS: LISINOPRIL 10 MG TAB PO SCH (08:59)
[2016-09-29] MEDS: methylPREDNISolone SOD SUCCI 40 MG/ML 1 ML VIAL IV SCH ×2 (08:59→21:15)
[2016-09-29] MEDS: TAMSULOSIN 0.4 MG CAP.ER.24H PO SCH (08:59)
[2016-09-29] MEDS: amLODIPine 5 MG TAB PO SCH (08:59)
--- NOTE | 2016-09-29 11:19 | PN ---
Mr. Holland Garcia who is seen, evaluated and examined. Mr. Holland Garcia is an 81-year-old male who is seen, evaluated, and examined with influenza, pneumonia and acute respiratory failure related to pneumonia and severe sepsis. Patient is being treated with antibiotics, supportive care. Patient has pancytopenia as well. In addition, patient has drooping of the face for which Neurology has been following. MRI failed to reveal any significant stroke. Patient; however, is noted to have normal pressure hydrocephalus along with multiple old infarctions. No obstructive hydrocephalus was seen. Patient has declined neurosurgical evaluation. Patient continued to manifest right facial droop and weakness. Patient is being treated for influenza A and pneumonia. Most recent vitals include blood pressure is 146/70, respiratory rate 18, pulse 95, temperature 98, saturation 98% on 2 L oxygen. HEENT: Unremarkable. NECK: Supple without lymphadenopathy, jugular venous distention or carotid bruit. LUNGS: Bilateral good air entry is present without significant rales, rhonchi or rub. HEART: Regular rate and rhythm. Abdomen is soft. NEUROLOGICAL EXAMINATION: Otherwise, awake and alert. Other laboratory data reviewed. White cell count last check was 1.4. IMPRESSION: 1. Pneumonia. 2. Influenza A pneumonia. 3. Right facial droop, Ernst's palsy remains in the differential diagnosis. 4. Normal pressure hydrocephalus. 5. Severe sepsis and leukopenia. 6. History of chronic obstructive pulmonary disease, coronary artery disease. Plan and recommendation is as above. Continue supportive care. Follow clinical course closely. Continue antibiotics. Will follow.
--- NOTE | 2016-09-29 11:39 | CONS ---
DATE OF CONSULTATION: CHIEF COMPLAINT: Fever, cough, fatigue and tiredness. This is an 81-year-old gentleman with a history of coronary artery disease, status post CABG, CA prostate, COPD, hypertension, osteoarthritis, who presented to hospital with a flulike illness and was found to have pneumonia for which he is admitted to hospital. Patient has had sinus tachycardia and Cardiology had been consulted because of history of CAD. Patient has leukopenia. He had one troponin when he first came that was negative. At the time of my evaluation this morning, he actually appears comfortable at rest and other than feeling fatigued and tired, is doing well. EKG shows sinus rhythm with poor R-wave progression. Past medical history is significant for CAD, status post CABG, diabetes, hypertension. Current medications include Lotrel, Flomax, Toprol-XL, DuoNeb, Lasix, Symbicort. Allergic to PENICILLIN and AMOXICILLIN. Family history is negative for premature coronary artery disease. Social history is negative for current smoking, EtOH abuse, or drug abuse. REVIEW OF SYSTEMS: HEENT is unremarkable. CARDIAC: As described above. RESPIRATORY: As described above. GI: Negative. GENITOURINARY: Negative. ALLERGY/IMMUNOLOGY: Negative. MUSCULOSKELETAL: Significant for arthritis. PSYCHOSOCIAL: Negative. ENDOCRINE: Negative. DERMATOLOGY: Negative. CONSTITUTIONAL: Negative. ONCOLOGICAL: Negative. The rest of the system review is not relevant. On exam, comfortable at rest. Vital signs are stable. There is no jugular venous distention. Carotid upstroke is normal. There is no bruit. Chest exam reveals good air entry bilaterally. Heart exam reveals first and second heart sounds. No gallop. Abdomen is soft, nontender. Exam of the extremities did not reveal edema. Peripheral pulses are felt. ASSESSMENT: 1. Influenza B infection with pneumonia. 2. History of hypertension. 3. Coronary artery disease status post coronary artery bypass graft. PLAN: I am going to obtain a 2-D echo on him to evaluate his LV function, review his outpatient records. No active cardiac intervention is needed at this time.
[2016-09-29 11:41] LABS: Glucose,Whole Blood 176 mg/dL (75-99)
--- NOTE | 2016-09-29 13:03 | P.PN ---
Subjective This patient is a 81-year-old right-handed white male who was admitted to hospital with shortness of breath and sepsis. Patient had evidence of severe sepsis and was positive for influenza type B. He also has a history of chronic obstructive pulmonary disease. Neurology was evaluating the patient for possible stroke. He had evidence of right facial droop. He was sent for MRI of the brain yesterday which reveals evidence of severe normal pressure-type hydrocephalus. There was subependymal white matter changes noted as well multiple areas of old infarction was also noted. There was no evidence of obstructive hydrocephalus on the MRI. The patient continues to do fairly well with no significant changes in his overall neurological status. 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 This can be further evaluated by neurosurgery. At this time he does not appear to have evidence of obstructive hydrocephalus. MRI failed to reveal any acute stroke on diffusion-weighted imaging. We did discuss the results of the MRI today with the patient in detail. He does not wish to proceed with any neurosurgical intervention for the NPH at this time. Given his age he is at risk for any type of intervention at this time. The patient continues to demonstrate right facial droop but this is slowly improving He has no significant weakness in the right arm or leg on examination. He denies any headache or nausea vomiting symptoms at this time. He is being treated for underlying sepsis. Patient otherwise seems to be doing about the same. The patient's daughter was at bedside and she was updated on his neurological findings. He does seem to be showing improvement day by day. We will continue close neurological follow-up for the patient during this admission. Objective - Vital Signs Vital signs: Vital Signs Temp 96.9 F L 09/29/16 08:58 Pulse 75 09/29/16 08:58 Resp 18 09/29/16 08:58 BP 146/69 09/29/16 08:58 Pulse Ox 98 09/29/16 08:58 Intake & Output 09/28/16 09/29/16 09/29/16 18:59 06:59 18:59 Intake Total 722 1450 222 Output Total 625 Balance 722 825 222 Weight 73 kg Intake: IV 500 1200 Sodium Chloride 0.9% 1, 500 1200 000 ml @ 100 mls/hr IV . Q10H ÓSCAR Rx#:[id number] Oral 222 250 222 Output: Urine 625 Other: Voiding Method Diaper Diaper Diaper # Voids 2 1 - Exam Physical examination: PHYSICAL EXAMINATION: Patient is resting comfortably in bed. VITAL SIGNS: Blood pressure is [146/69]. Heart rate is [75]. Respiration is [18] . Temperature is [97.0]. HEENT: Head is atraumatic, neck is supple, there were no carotid bruits. CHEST: Lungs are clear to auscultation and percussion. CARDIAC: S1, S2 normal rate and rhythm. There is no murmur. ABDOMEN: Soft and nontender. Bowel sounds are present. EXTREMITIES: There is no pedal edema. Peripheral pulses are present. Neurological examination: Patient's neurological examination is unchanged from yesterday. Patient is sitting up in chair at bedside. He is able to follow simple commands. He is alert and oriented 3. Patient does seem to be more awake and alert today as compared to yesterday. - Labs CBC & Chem 7: 09/28/16 07:58 09/28/16 06:01 Labs: Abnormal Lab Results - Last 24 Hours (Table) 09/28/16 09/28/16 09/28/16 Range/Units 12:23 16:51 20:33 POC Glucose (mg/dL) 127 H 198 H 150 H (75-99) mg/dL 09/29/16 Range/Units 06:14 POC Glucose (mg/dL) 138 H (75-99) mg/dL Assessment and Plan (1) Acute ischemic left MCA stroke Status: Acute Code(s): I63.512 - CEREB INFRC D/T UNSP OCCLS OR STENOS OF LEFT MID CEREB ART (2) Influenza A Status: Acute Code(s): J10.1 - FLU DUE TO OTH IDENT INFLUENZA VIRUS W OTH RESP MANIFEST (3) COPD exacerbation Status: Acute Code(s): J44.1 - CHRONIC OBSTRUCTIVE PULMONARY DISEASE W (ACUTE ) EXACERBATION (4) Paroxysmal a-fib Status: Acute Code(s): I48.0 - PAROXYSMAL ATRIAL FIBRILLATION Plan: This patient is a 81-year-old right-handed white male who was initially admitted to Hospital with symptoms of generalized weakness and shortness of breath. Apparently his daughter noticed right-sided facial droop which was a new finding. He was brought into the emergency room for further evaluation of possible stroke. He was found to have evidence of influenza A. He was septic and having fever at home as well. He is a very poor historian. His CAT scan of the brain failed to reveal any evidence of acute stroke. He has been severely depressed since the passing of his . He is been losing weight apparently as well. We have recommended a complete stroke evaluation for the patient. We will obtain an MRI of the brain for further evaluation of left hemispheric stroke. He does have a history of paroxysmal atrial fibrillation in the past as well. Patient underwent MRI of the brain yesterday. Results are as noted above. There is evidence of normal pressure hydrocephalus with multiple areas of old stroke. There is no evidence of obstructive hydrocephalus. This MRI finding can be further followed up in the outpatient neurosurgery clinic. Given the patient's age and multiple other medical issues he is not considered today strong surgical candidate. We did discuss the MRI findings today with the patient at bedside. He does not wish to proceed with any neurosurgical intervention for NPH at this time given his age. We would tend to agree with him at this time as he is not showing significant symptoms of NPH at this time. MRI failed to reveal any evidence of acute left hemispheric stroke. There is multiple areas of old stroke seen on the MRI. He may benefit from inpatient rehab or custodial placement due to his general medical debility. Patient's right facial droop seems to show improvement today as compared to yesterday. We did discuss his MRI findings today with the patient's daughter at bedside. She agrees she does not want to pursue any neurosurgical intervention for possible NPH at this time. We will continue to follow his progress during this admission. His overall prognosis at this time remains very guarded.
[2016-09-29 16:44] LABS: Glucose,Whole Blood 169 mg/dL (75-99)
--- NOTE | 2016-09-29 18:43 | PN ---
DATE OF SERVICE: 09/28/2016 SUBJECTIVE: This is an 81-year-old white male who was admitted with influenza pneumonia, acute respiratory failure secondary to pneumonia, history of congestive heart failure. He also had right middle cerebellar infarct on this admission, although he is moving his arms and legs good. He is able to talk better. He mind is more stable today. Blood pressure 150s/80s, respiratory rate 18 to 20, pulse 70s to 80s, temp 98, O2 sat at 97% on 2 L. HEENT: Normocephalic, atraumatic. NECK: Supple. LUNGS: Mild expiratory wheeze. HEART: Regular rate and rhythm. Abdomen is soft. NEUROLOGIC: Alert and oriented x3, sitting up in the chair at this time. Continues on antibiotics and Tamiflu. Chest x-ray showed COPD. ASSESSMENT: 1. Severe sepsis secondary to influenza pneumonia. 2. Chronic obstructive pulmonary exacerbation. 3. Hydrocephalus. 4. Severe pansinusitis. 5. Acute right middle cerebral cerebrovascular. Continue on IV antibiotics. Leukocytosis secondary to sepsis, treatment for stroke and pO2 will be continued.
--- NOTE | 2016-09-29 21:36 | PN ---
SUBJECTIVE: 81-year-old white male with acute ischemic left MCA stroke, influenza A with chronic obstructive pulmonary disease exacerbation, paroxysmal atrial fibrillation who is getting better on a daily basis. He has been started on antidepressant since admission also. Remains on ( ) anti-flu medicines, steroids for stroke and he is normal pressure hydrocephalus with multiple areas of an old stroke and NPH appears to be chronic per neurology. MRI failed to reveal any evidence of acute stroke, just old strokes and continued to improve from rehab or halfway placement. Overall facial drooping appears to be improving. LUNGS: Show wheezes x4 but improving. CARDIOVASCULAR: S1 and S2. PSYCH: Fair mood and affect. NEUROLOGIC: As mentioned above, alert and oriented x3. PLAN: Continue with current treatments PT, OT, halfway placement soon.
[2016-09-29 21:42] LABS: Glucose,Whole Blood 141 mg/dL (75-99)
[2016-09-30] MEDS: PANTOPRAZOLE 40 MG TABLET PO SCH (06:48)
[2016-09-30] MEDS: INSULIN LISPRO (humaLOG) 300 UNIT/3 ML VIAL SQ SCH ×2 (06:48→12:01)
[2016-09-30 06:49] LABS: Glucose,Whole Blood 134 mg/dL (75-99)
[2016-09-30 06:49] LABS: Basophils % (A) 0 %; CH 30.5; CHCM 33.5; Eosinophils % (A) 0 %; HCT 39.1 % (39.0-53.0); HDW 2.82; HGB 12.8 gm/dL (13.0-17.5); Luc # (Auto) 0.09; Luc % (Auto) 3; Lymphocytes # (A) 0.6 k/uL (1.0-4.8); Lymphocytes % (A) 17 %; MCH 29.8 pg (25.0-35.0); MCHC 32.7 g/dL (31.0-37.0); MCV 91.3 fL (80.0-100.0); Mean Platelet Volume 6.5; Monocytes # (A) 0.2 k/uL (0-1.0); Monocytes % (A) 7 %; Neutrophils # (A) 2.6 k/uL (1.3-7.7); Neutrophils % (A) 74 %; RBC 4.29 m/uL (4.30-5.90); RDW 14.5 % (11.5-15.5); WBC 3.5 k/uL (3.8-10.6)
[2016-09-30] MEDS: SODIUM CHLORIDE 0.9% 1,000 ML IV SCH (06:49)
[2016-09-30] MEDS: ACETAMINOPHEN TAB 325 MG TAB PO PRN (06:49)
[2016-09-30 07:18] LABS: ALT 40 U/L (21-72); AST 35 U/L (17-59); Alkaline Phosphatase 72 U/L (38-126); Anion Gap 8 mmol/L; Blood Urea Nitrogen 18 mg/dL (9-20); Calcium 8.5 mg/dL (8.4-10.2); Carbon Dioxide 29 mmol/L (22-30); Chloride 97 mmol/L (98-107); Glucose 125 mg/dL (74-99); Non-African American GFR(MDRD) >60 (>60 ml/min/1.73 sqM); Potassium 4.1 mmol/L (3.5-5.1); Sodium 134 mmol/L (137-145); Total Bilirubin 0.4 mg/dL (0.2-1.3); Total Protein 6.1 g/dL (6.3-8.2)
--- NOTE | 2016-09-30 07:40 | ECHOF ---
Referral Reason:cva MEASUREMENTS -------- HEIGHT: 170.2 cm WEIGHT: 72.6 kg BP: 146/69 IVSd: 0.9 cm (0.6 - 1.1) LVIDd: 5.1 cm (3.9 - 5.3) LVPWd: 0.9 cm (0.6 - 1.1) LVIDs: 2.8 cm LA Diam: 4.2 cm (2.7 - 3.8) RVIDd: 3.2 cm (< 3.3) LAESV Index (A-L): 47.13 ml/m Ao Diam: 3.1 cm (2.0 - 3.7) AV Cusp: 2.1 cm (1.5 - 2.6) EPSS: 0.3 cm MV E Jamar: 0.96 m/s MV DecT: 138 ms MV A Jamar: 0.77 m/s MV E/A Ratio: 1.25 RAP: 5.00 mmHg RVSP: 23.65 mmHg MV EF SLOPE: 121.46 mm/s (70 - 150) MV EXCURSION: 20.82 mm (> 18.000) FINDINGS -------- Sinus rhythm. This was a technically good study. The left ventricular size is normal. Left ventricular wall thickness is normal. Overall left ventricular systolic function is normal with, an EF between 60 - 65 %. The right ventricle is normal in size. LA is severely dilated >40 ml/m2 The right atrium is normal in size. Aortic valve is trileaflet and is mildly thickened. Mild mitral regurgitation is present. Mild tricuspid regurgitation present. Right ventricular systolic pressure is normal at < 35 mmHg. Trace/mild (physiologic) pulmonic regurgitation. The aortic root size is normal. The inferior vena cava is mildly dilated. There is no pericardial effusion. CONCLUSIONS -------- 1. Sinus rhythm. 2. Mild mitral regurgitation is present. 3. Mild tricuspid regurgitation present. 4. Right ventricular systolic pressure is normal at < 35 mmHg. 5. Trace/mild (physiologic) pulmonic regurgitation. 6. The aortic root size is normal. 7. The inferior vena cava is mildly dilated. 8. There is no pericardial effusion. 9. This was a technically good study. 10. The left ventricular size is normal. 11. Left ventricular wall thickness is normal. 12. Overall left ventricular systolic function is normal with, an EF between 60 - 65 %. 13. The right ventricle is normal in size. 14. LA is severely dilated >40 ml/m2 15. The right atrium is normal in size. 16. Aortic valve is trileaflet and is mildly thickened. SENIOR SALES ADMINISTRATOR: Mine Kennedy RDCS
[2016-09-30] MEDS: BUDESONIDE 1 MG/2 ML NEBU INHALATION SCH (08:29)
[2016-09-30] MEDS: IPRATROPIUM-ALBUTEROL 3 ML NEB INHALATION SCH ×2 (08:29→12:00)
[2016-09-30] MEDS: TAMSULOSIN 0.4 MG CAP.ER.24H PO SCH (09:04)
[2016-09-30] MEDS: HEPARIN SODIUM,PORCINE 5,000 UNIT/ML 1 ML VIAL SQ SCH (09:05)
[2016-09-30] MEDS: methylPREDNISolone SOD SUCCI 40 MG/ML 1 ML VIAL IV SCH (09:05)
[2016-09-30] MEDS: FLUoxetine HCL 10 MG CAP PO SCH (09:05)
[2016-09-30] MEDS: amLODIPine 5 MG TAB PO SCH (09:05)
[2016-09-30] MEDS: METOPROLOL SUCCINATE (ER) 25 MG TAB.ER.24H PO SCH (09:05)
[2016-09-30] MEDS: OSELTAMIVIR 75 MG CAP PO SCH (09:05)
[2016-09-30] MEDS: LISINOPRIL 10 MG TAB PO SCH (09:05)
[2016-09-30 09:16] VITALS: RESP 20
[2016-09-30 12:15] LABS: Glucose,Whole Blood 120 mg/dL (75-99)
[2016-09-30 12:26] VITALS: BP 141/88; PULSE 74; TEMP 96.7
--- NOTE | 2016-09-30 14:11 | P.DS ---
Providers Date of admission: 09/26/16 15:12 Expected date of discharge: 09/30/16 Attending physician: Edd Bynum Consults: 09/27/16 15:57 Consult Physician Urgent Consulting Provider: Kervin Aleman Consult Reason/Comments: influenza, pneumonia Do you want consulting provider notified?: Yes 09/28/16 15:07 Consult Physician Routine Consulting Provider: Karson Campbell Consult Reason/Comments: cva Do you want consulting provider notified?: Yes Primary care physician: [facility] Course: 81-year-old who was admitted to the emergency room with a chief complaint of coughing weakness tachycardic heart rate in the 140s patient does live with his daughter. She noted that the patient was having high-grade temp with a right-sided facial droop. She became concerned and brought patient to the emergency room in the emergency room the patient underwent CAT scan of brain it did show atrophy and mild white matter changes. Patient's temp and the emergency room was 101.7. Patient was also noted to have episodes of bradycardia. Patient has a history of coronary artery disease with prior coronary artery bypass grafting. Patient was admitted for a full stroke eval patient was seen by cardiology service. They recommended echocardiogram evaluate the LV function there was no cardiac workup indicated at this time patient did have an echocardiogram showed an EF of 60-65%. Infectious disease did see patient as well patient was positive for influenza be started on Tamiflu. Patient showed no evidence of any bacterial infection. Patient does have a left heel wound that was present on admission infectious disease recommended no further workup at this time Pulmonary consultation was requested patient was treated for an acute exacerbation of COPD Mild consulting physicians patient had made a noted improvement was felt to be stable and appropriate proceed with a discharge to home. Patient's family indicates that the patient has 24 7 care and at this time they did not feel he warranted subacute rehab Impression discharge diagnoses Present on admission shortness of breath due to acute exacerbation of COPD Present on admission influenza B positive A prior CVA Clinical dehydration present on admission due to poor oral intake Present on admission left foot decubitus ulcer on state tubal pressure ulcer on the left heel with black eschar with no surrounding redness present on admission Known coronary artery disease with history of coronary artery bypass grafting Remote history of tobacco abuse No evidence of sepsis chest x-ray negative no evidence of pneumonia Normal pressure hydrocephalus Chronic debility physical Echocardiogram left ventricular systolic function normal EF between 60 and 65% The above dictated assessment and findings were discussed with dr bynum Impression and the plan of care have been dictated as directed. Gin Pool nurse practitioner acting as a scribe for dr bynmu . Patient Condition at Discharge: Fair Plan - Discharge Summary Discharge Medication List amLODIPine BESYLATE/BENAZEPRIL [Lotrel 5-10 mg Capsule] 1 cap PO DAILY 03/08/14 [History] Budesonide-Formot 160-4.5 Mcg [Symbicort 160-4.5 Mcg Inhaler] 2 puff INHALATION RT-BID PRN 12/27/14 [History] Ipratropium-Albuterol Nebulize [Duoneb 0.5 mg-3 mg/3 ml Soln] 3 ml INHALATION RT -TID 05/20/16 [History] Tamsulosin HCl [Flomax] 0.4 mg PO DAILY 05/20/16 [History] Furosemide [Lasix] 40 mg PO DAILY PRN 05/23/16 [History] Metoprolol Succinate (ER) [Toprol XL] 25 mg PO BID #60 tab.er.24h 07/31/16 [Rx] Follow up Appointment(s)/Referral(s): Edd Bynum MD [Primary Care Provider] - 1-2 days Discharge Disposition: HOME WITH HOME HEALTH SERVICES
[2016-09-30] MEDS ORDERED: ASPIRIN 81 MG CHEW PO SCH (15:00)
--- NOTE | 2016-09-30 15:01 | P.PN ---
Subjective Principal diagnosis: Sepsis This is an 81-year-old gentleman with history of coronary artery disease and prior bypass surgery, paroxysmal atrial fibrillation, COPD, hypertension, diabetes, hyperlipidemia, who presented to the hospital with flulike symptoms. He did rule in for influenza B. EKG on admission here showed a sinus tachycardia. Has remained in normal sinus rhythm since his admission here. Cardiogram with Doppler study was performed which revealed an ejection fraction of 60-65%. White blood cell count this morning 3.5, hemoglobin 12.8, potassium 4.1, creatinine 0.4. Blood pressure 140/80 with a heart rate in the 70s. 95% on room air. According to the patient, he had taken Coumadin in the past, and is unsure as to why he is not on it at this time. He denies any history of bleeding. He was in the hospital back in January of last year, in normal sinus rhythm at that time, not on anticoagulation at that admission. Patient had been advised to follow-up with cardiology in the office on his prior admissions, he states he only wishes to seek Dr. Armstrong in the office. Patient may benefit from repeat event monitor as an outpatient to assess if he is having episodes of atrial fibrillation. If so he would need to be on anticoagulation for stroke prevention. This was explained to the patient in detail. Objective - Vital Signs Vital signs: Vital Signs Temp 96.7 F L 09/30/16 12:00 Pulse 74 09/30/16 12:00 Resp 20 09/30/16 12:00 BP 141/88 09/30/16 12:00 Pulse Ox 95 09/30/16 12:00 Intake & Output 09/29/16 09/30/16 09/30/16 18:59 06:59 18:59 Intake Total 1062 2020 180 Output Total 575 225 Balance 1062 1445 -45 Weight 71.5 kg Intake: IV 600 1600 Sodium Chloride 0.9% 1, 600 1600 000 ml @ 100 mls/hr IV . Q10H ÓSCAR Rx#:[id number] Oral 462 420 180 Output: Urine 575 225 Other: Voiding Method Diaper Diaper # Voids 1 2 2 - Exam PHYSICAL EXAMINATION: HEENT: Head is atraumatic, normocephalic. Pupils equal, round. Neck is supple. There is no elevated jugular venous pressure. HEART EXAMINATION: Heart S1, S2 normal. No murmur or gallop heard. CHEST EXAMINATION: Lungs are clear to auscultation and precussion. No chest wall tenderness is noted on palpation or with deep breathing. ABDOMEN: Soft, nontender. Bowel sounds are heard. No organomegaly noted. EXTREMITIES: 2+ peripheral pulses with no evidence of peripheral edema and no calf tenderness noted. NEUROLOGIC patient is awake, alert and oriented -3. . - Labs CBC & Chem 7: 09/30/16 05:59 09/30/16 05:59 Labs: Abnormal Lab Results - Last 24 Hours (Table) 09/29/16 09/29/16 09/30/16 Range/Units 16:42 21:07 05:59 WBC 3.5 L (3.8-10.6) k/uL RBC 4.29 L (4.30-5.90) m/uL Hgb 12.8 L (13.0-17.5) gm/dL Lymphocytes # 0.6 L (1.0-4.8) k/uL Sodium (137-145) mmol/L Chloride (98-107) mmol/L Creatinine (0.66-1.25) mg/dL Glucose (74-99) mg/dL POC Glucose (mg/dL) 169 H 141 H (75-99) mg/dL Total Protein (6.3-8.2) g/dL Albumin (3.5-5.0) g/dL 09/30/16 09/30/16 09/30/16 Range/Units 05:59 06:47 11:52 WBC (3.8-10.6) k/uL RBC (4.30-5.90) m/uL Hgb (13.0-17.5) gm/dL Lymphocytes # (1.0-4.8) k/uL Sodium 134 L (137-145) mmol/L Chloride 97 L (98-107) mmol/L Creatinine 0.47 L (0.66-1.25) mg/dL Glucose 125 H (74-99) mg/dL POC Glucose (mg/dL) 134 H 120 H (75-99) mg/dL Total Protein 6.1 L (6.3-8.2) g/dL Albumin 3.4 L (3.5-5.0) g/dL Assessment and Plan (1) Influenza B Status: Acute (2) HTN (hypertension) Status: Acute (3) CAD (coronary artery disease) Status: Acute (4) Hx of CABG Status: Acute (5) Hyperlipemia Status: Acute (6) COPD (chronic obstructive pulmonary disease) Status: Acute (7) Asthma Status: Acute (8) Paroxysmal a-fib Status: Acute (9) History of CVA (cerebrovascular accident) Status: Acute Plan: From cardiology's perspective, anticoagulation in this patient is recommended based on his CHADSVASC score of 6.7%. He shouldn't is at higher risk for fall, which may be the reason that anticoagulation was deferred in the past. I did have a discussion with the patient regarding this, he wishes to only take an aspirin at this time. They're planning on discharging home today. He again has been recommended to follow-up with Dr. Read in the office post discharge. TE metoprolol tartrate 25 mg one tablet by mouth twice a day. DNP note has been reviewed, I agree with a documented findings and plan of care. Patient was seen and examined.
[2016-09-30 15:05] VITALS: BMI 24.7
--- NOTE | 2016-09-30 17:59 | PN ---
Holland Garcia who is seen, evaluated and examined on the sixth floor. Patient is clinically doing well, awake and alert. His drooping on the face has improved significantly. He is breathing comfortably. He remains on therapy for influenza, pneumonia. His hemodynamic status is stable. Last set of vitals include blood pressure is 140/90, respiratory rate 20, pulse 74, temperature 97, saturating 95% on 2 liters oxygen. HEENT: Unremarkable. ( ). Pharynx is clear. No exudates. NECK: Supple. No lymphadenopathy or jugular venous distention or carotid bruit. LUNGS: Bilateral fine expiratory wheezing and rhonchi are present. HEART: Regular rate and rhythm. S1 and S2 audible. Abdomen soft. No rebound or rigidity. EXTREMITIES: +1 peripheral pulses. Labs are reviewed. White 3500, hemoglobin 12, hematocrit 39, platelet count 220,000. Sodium 134, potassium is 4.1. BUN and creatinine 18 and 0.47. Culture results and report are reviewed. Urine culture no growth so far. Urine culture predominantly skin and genital glory. IMPRESSION: 1. Paroxysmal atrial fibrillation and dilated LA. Cardiovascular service is following. 2. Influenza, pneumonia. 3. Drooping of the face. 4. Hypertension, hypertensive cardiovascular disease. 5. Coronary artery disease. 6. Normal pressure hydrocephalus being monitored and observed. The patient declined further aggressive intervention. PLAN AND RECOMMENDATION: Continue breathing treatments. Continue supportive care and adjust antibiotics as per primary service. We will follow.
--- NOTE | 2016-09-30 19:03 | PN ---
DATE OF SERVICE: 09/30/2016 REASON FOR FOLLOWUP: Influenza B. INTERVAL HISTORY: The patient was seen on rounds morning. The patient has been afebrile, has been breathing comfortably. Denies significant chest pain, shortness of breath or cough. No abdominal pain or any diarrhea. Denies any pain in the left heel area. On examination, blood pressure is 141/88 with a pulse of 74, temperature 96.7. He is 95% on room air. General description is an elderly male up in the bed in no distress. RESPIRATORY SYSTEM: Unlabored breathing. Clear to auscultation anteriorly. HEART: S1, S2. Regular rate and rhythm. ABDOMEN: Soft. Left heel is current dressed up. No obvious drainage. LABS: Hemoglobin is 12.8, white count 3.5 with a BUN of 18, creatinine 0.47. Blood culture is negative. DIAGNOSTIC IMPRESSION AND PLAN: 1. Patient with acute influenza B, adequately treated. Patient to finish current course of Tamiflu to finish a 5-day course of therapy. No need for any antibiotic, as there is no evidence of any bacterial infection. 2. Left heel wound. Keep the area off pressure and keep it dry.
== END 2016-09-30 15:03 | disposition home health service (06) | DRG 152 ==
LOC: EC 11:02 → 6SEL 15:12
PROVIDERS: ADMIT Family Medicine; ATTEND Family Medicine
DX: J11.1 Influenza due to unidentified influenza virus with other respiratory manifestations (principal); J96.00 Acute respiratory failure, unspecified whether with hypoxia or hypercapnia; D61.818 Other pancytopenia; G91.2 (Idiopathic) normal pressure hydrocephalus; J44.1 Chronic obstructive pulmonary disease with (acute) exacerbation; E86.0 Dehydration; I48.0 Paroxysmal atrial fibrillation; I11.0 Hypertensive heart disease with heart failure; I50.9 Heart failure, unspecified; J32.4 Chronic pansinusitis; E11.9 Type 2 diabetes mellitus without complications; L89.629 Pressure ulcer of left heel, unspecified stage; F32.9 Major depressive disorder, single episode, unspecified; E78.5 Hyperlipidemia, unspecified; I25.10 Atherosclerotic heart disease of native coronary artery without angina pectoris; M19.90 Unspecified osteoarthritis, unspecified site; N40.0 Benign prostatic hyperplasia without lower urinary tract symptoms; R29.810 Facial weakness; J45.909 Unspecified asthma, uncomplicated; Z95.1 Presence of aortocoronary bypass graft; Z86.73 Personal history of transient ischemic attack (TIA), and cerebral infarction without residual deficits; Z87.891 Personal history of nicotine dependence; Z92.3 Personal history of irradiation; Z85.46 Personal history of malignant neoplasm of prostate; Z82.5 Family history of asthma and other chronic lower respiratory diseases; Z88.0 Allergy status to penicillin; Z79.51 Long term (current) use of inhaled steroids; Z79.899 Other long term (current) drug therapy
CPT/HCPCS: 36415; 70450; 70551; 71010; 71020; 80053; 81001; 82550; 82553; 83036; 83605; 84484; 85025; 85610; 85730; 87040; 87086; 87502; 93005; 93306; 93880; 94640; 95816; 96361; 96365; 96366; 99291

== ENCOUNTER 2017-08-15 11:08 | Emergency (ER) | payer MEDICARE ==
[2017-08-15] MEDS ORDERED: IBUPROFEN 600 MG TAB PO STA (11:49)
[2017-08-15] MEDS ORDERED: ACETAMINOPHEN TAB 500 MG TAB PO STA (11:49)
[2017-08-15] MEDS ORDERED: IPRATROPIUM-ALBUTEROL 3 ML NEB INHALATION STA (11:50)
[2017-08-15] MEDS ORDERED: LEVOFLOXACIN 750MG-D5W PMX 750 MG in DEXTROSE/WATER 1 150ML.BAG IVPB STA (11:50)
--- NOTE | 2017-08-15 11:54 | ED ---
General Adult HPI - General Chief complaint: Upper Respiratory Infection Stated complaint: Chest cold Time Seen by Provider: 08/15/17 11:20 Source: patient, RN notes reviewed Mode of arrival: wheelchair Limitations: no limitations - History of Present Illness Initial comments: This is an 82-year-old male who presents emergency Department complaining of a cough and some shortness of breath over the last few days. Patient has not had any fever that he knows of. Patient is not complaining any chest pain or palpitations. Patient denies any abdominal pain patient denies any nausea vomiting diarrhea. Patient denies getting a flu shot this year. Patient denies any rashes. Patient denies any neck stiffness. Patient denies headache patient denies lightheadedness patient denies any dizziness. Patient has a 30 year history of smoking but quit quite a few years ago - Related Data Home Medications Medication Instructions Recorded Confirmed Budesonide-Formot 160-4.5 Mcg 2 puff INHALATION RT-BID 12/27/14 08/15/17 [Symbicort 160-4.5 Mcg Inhaler] Ipratropium-Albuterol Nebulize 3 ml INHALATION RT-QID 05/20/16 08/15/17 [Duoneb 0.5 mg-3 mg/3 ml Soln] Aspirin 81 mg PO DAILY 08/15/17 08/15/17 Furosemide [Lasix] 20 mg PO DAILY 08/15/17 08/15/17 amLODIPine BESYLATE [Norvasc] 2.5 mg PO DAILY 08/15/17 08/15/17 guaiFENesin-DM 600/30MG [Mucinex 1 tab PO Q12HR 08/15/17 08/15/17 Dm] Previous Rx's Medication Instructions Recorded Levofloxacin [Levaquin] 750 mg PO DAILY #10 tab 08/15/17 Allergies Allergy/AdvReac Type Severity Reaction Status Date / Time amoxicillin Allergy Unknown Verified 08/15/17 11:42 Penicillins Allergy Unknown Verified 08/15/17 11:42 Review of Systems ROS Statement: Those systems with pertinent positive or pertinent negative responses have been documented in the HPI. ROS Other: All systems not noted in ROS Statement are negative. Past Medical History Past Medical History: Asthma, Coronary Artery Disease (CAD), Cancer, COPD, Hypertension, Osteoarthritis (OA), Prostate Disorder, Respiratory Disorder Additional Past Medical History / Comment(s): PT STATES CABG 10 YEARS AGO. RADIATION THERAPY FOR PROSTATE CA 15 YEARS AGO History of Any Multi-Drug Resistant Organisms: None Reported Past Surgical History: Coronary Bypass/CABG, Heart Catheterization Additional Past Surgical History / Comment(s): right carotid endarectomy Past Anesthesia/Blood Transfusion Reactions: No Reported Reaction Past Psychological History: No Psychological Hx Reported Smoking Status: Former smoker Past Alcohol Use History: None Reported Past Drug Use History: None Reported - Past Family History Father Family Medical History: CVA/TIA, Myocardial Infarction ([place]), Osteoarthritis (OA) , Prostate Disorder General Exam - General Exam Comments Initial Comments: GENERAL: Patient is well-developed and well-nourished. Patient is nontoxic and well- hydrated and is in mild distress. ENT: Neck is soft and supple. No significant lymphadenopathy is noted. Oropharynx is clear. Moist mucous membranes. Neck has full range of motion without eliciting any pain. EYES: The sclera were anicteric and conjunctiva were pink and moist. Extraocular movements were intact and pupils were equal round and reactive to light. Eyelids were unremarkable. PULMONARY: Unlabored respirations. Good breath sounds bilaterally. Slight expiratory wheezing CARDIOVASCULAR: There is a regular rate and rhythm without any murmurs gallops or rubs. ABDOMEN: Soft and nontender with normal bowel sounds. No palpable organomegaly was noted. There is no palpable pulsatile mass. SKIN: Skin is clear with no lesions or rashes and otherwise unremarkable. NEUROLOGIC: Patient is alert and oriented x3. Cranial nerves II through XII are grossly intact. Both lower extremities are weak however caregiver states this is normal. Normal speech, volume and content. Symmetrical smile. MUSCULOSKELETAL: Normal extremities with adequate strength and full range of motion. No lower extremity swelling or edema. No calf tenderness. LYMPHATICS: No significant lymphadenopathy is noted PSYCHIATRIC: Normal psychiatric evaluation. Limitations: no limitations Course Vital Signs 08/15/17 08/15/17 08/15/17 11:22 11:40 12:22 Temperature 98.4 F 100.1 F H 100.1 F H Pulse Rate 100 100 97 Pulse Rate [ 118 H Apical] Respiratory 18 18 18 Rate Blood Pressure 163/73 187/81 155/73 O2 Sat by Pulse 94 L 98 98 Oximetry 08/15/17 08/15/17 08/15/17 12:43 12:54 13:23 Temperature 99.4 F Pulse Rate 91 92 100 Pulse Rate [ Apical] Respiratory 18 Rate Blood Pressure 113/58 O2 Sat by Pulse 96 Oximetry 08/15/17 14:52 Temperature Pulse Rate 88 Pulse Rate [ Apical] Respiratory 16 Rate Blood Pressure 114/57 O2 Sat by Pulse 98 Oximetry Medical Decision Making - Medical Decision Making EKG shows sinus rhythm with occasional PAC at 90 bpm AK interval is 200 QRS is 90 QT interval 362 QTC is 462. Patient's EKG shows no ST segment elevation or depression or T wave abnormalities are noted. Chest x-ray showed no acute abnormality. Present patient states fever and persistent cough. The patient Levaquin in the emergency department. - Lab Data Result diagrams: 08/15/17 11:40 08/15/17 11:40 Lab Results 08/15/17 08/15/17 08/15/17 Range/Units 11:40 11:40 11:40 WBC 10.4 (3.8-10.6) k/uL RBC 4.93 (4.30-5.90) m/uL Hgb 15.0 (13.0-17.5) gm/dL Hct 47.4 (39.0-53.0) % MCV 96.0 (80.0-100.0) fL MCH 30.4 (25.0-35.0) pg MCHC 31.7 (31.0-37.0) g/dL RDW 14.7 (11.5-15.5) % Plt Count 243 (150-450) k/uL Neutrophils % 87 % Lymphocytes % 5 % Monocytes % 6 % Eosinophils % 0 % Basophils % 1 % Neutrophils # 9.0 H (1.3-7.7) k/uL Lymphocytes # 0.5 L (1.0-4.8) k/uL Monocytes # 0.6 (0-1.0) k/uL Eosinophils # 0.1 (0-0.7) k/uL Basophils # 0.1 (0-0.2) k/uL PT (9.0-12.0) sec INR (<1.2) APTT (22.0-30.0) sec Sodium 138 (137-145) mmol/L Potassium 4.6 (3.5-5.1) mmol/L Chloride 99 (98-107) mmol/L Carbon Dioxide 29 (22-30) mmol/L Anion Gap 10 mmol/L BUN 18 (9-20) mg/dL Creatinine 0.66 (0.66-1.25) mg/dL Est GFR (MDRD) Af Amer >60 (>60 ml/min/1.73 sqM) Est GFR (MDRD) Non-Af >60 (>60 ml/min/1.73 sqM) Glucose 102 H (74-99) mg/dL Plasma Lactic Acid Asif 1.7 (0.7-2.0) mmol/L Calcium 9.9 (8.4-10.2) mg/dL Total Bilirubin 1.0 (0.2-1.3) mg/dL AST 30 (17-59) U/L ALT 39 (21-72) U/L Alkaline Phosphatase 82 (38-126) U/L Total Protein 7.2 (6.3-8.2) g/dL Albumin 4.4 (3.5-5.0) g/dL Urine Color Urine Appearance (Clear) Urine pH (5.0-8.0) Ur Specific [place] (1.001-1.035) Urine Protein (Negative) Urine Glucose (UA) (Negative) Urine Ketones (Negative) Urine Blood (Negative) Urine Nitrite (Negative) Urine Bilirubin (Negative) Urine Urobilinogen (<2.0) mg/dL Ur Leukocyte Esterase (Negative) Urine RBC (0-5) /hpf Urine WBC (0-5) /hpf Ur Squamous Epith Cells (0-4) /hpf Amorphous Sediment (None) /hpf Urine Bacteria (None) /hpf Urine Mucus (None) /hpf Influenza Type A RNA (Not Detectd) Influenza Type B (PCR) (Not Detectd) 08/15/17 08/15/17 08/15/17 Range/Units 11:40 13:30 13:30 WBC (3.8-10.6) k/uL RBC (4.30-5.90) m/uL Hgb (13.0-17.5) gm/dL Hct (39.0-53.0) % MCV (80.0-100.0) fL MCH (25.0-35.0) pg MCHC (31.0-37.0) g/dL RDW (11.5-15.5) % Plt Count (150-450) k/uL Neutrophils % % Lymphocytes % % Monocytes % % Eosinophils % % Basophils % % Neutrophils # (1.3-7.7) k/uL Lymphocytes # (1.0-4.8) k/uL Monocytes # (0-1.0) k/uL Eosinophils # (0-0.7) k/uL Basophils # (0-0.2) k/uL PT 9.9 (9.0-12.0) sec INR 1.0 (<1.2) APTT 23.1 (22.0-30.0) sec Sodium (137-145) mmol/L Potassium (3.5-5.1) mmol/L Chloride (98-107) mmol/L Carbon Dioxide (22-30) mmol/L Anion Gap mmol/L BUN (9-20) mg/dL Creatinine (0.66-1.25) mg/dL Est GFR (MDRD) Af Amer (>60 ml/min/1.73 sqM) Est GFR (MDRD) Non-Af (>60 ml/min/1.73 sqM) Glucose (74-99) mg/dL Plasma Lactic Acid Asif (0.7-2.0) mmol/L Calcium (8.4-10.2) mg/dL Total Bilirubin (0.2-1.3) mg/dL AST (17-59) U/L ALT (21-72) U/L Alkaline Phosphatase (38-126) U/L Total Protein (6.3-8.2) g/dL Albumin (3.5-5.0) g/dL Urine Color Yellow Urine Appearance Cloudy (Clear) Urine pH 7.0 (5.0-8.0) Ur Specific [place] 1.017 (1.001-1.035) Urine Protein 1+ H (Negative) Urine Glucose (UA) Negative (Negative) Urine Ketones 2+ H (Negative) Urine Blood Moderate H (Negative) Urine Nitrite Negative (Negative) Urine Bilirubin Negative (Negative) Urine Urobilinogen 2.0 (<2.0) mg/dL Ur Leukocyte Esterase Small H (Negative) Urine RBC >182 H (0-5) /hpf Urine WBC 12 H (0-5) /hpf Ur Squamous Epith Cells <1 (0-4) /hpf Amorphous Sediment Rare H (None) /hpf Urine Bacteria Occasional H (None) /hpf Urine Mucus Occasional H (None) /hpf Influenza Type A RNA Not Detected (Not Detectd) Influenza Type B (PCR) Not Detected (Not Detectd) Disposition Clinical Impression: Bronchitis Disposition: HOME SELF-CARE Condition: Good Instructions: Acute Bronchitis (ED) Prescriptions: Levofloxacin [Levaquin] 750 mg PO DAILY #10 tab Referrals: Edd Armstrong MD [Primary Care Provider] - 1-2 days Time of Disposition: 15:20
[2017-08-15] MEDS: SODIUM CHLORIDE 0.9% 500 ML IV SCH (12:14)
[2017-08-15 12:19] LABS: Basophils # (A) 0.1 k/uL (0-0.2); Basophils % (A) 1 %; Eosinophils # (A) 0.1 k/uL (0-0.7); Eosinophils % (A) 0 %; HCT 47.4 % (39.0-53.0); Lymphocytes # (A) 0.5 k/uL (1.0-4.8); Lymphocytes % (A) 5 %; MCH 30.4 pg (25.0-35.0); MCHC 31.7 g/dL (31.0-37.0); Mean Platelet Volume 7.1; Monocytes # (A) 0.6 k/uL (0-1.0); Monocytes % (A) 6 %; Neutrophils % (A) 87 %; Platelet Count 243 k/uL (150-450); RBC 4.93 m/uL (4.30-5.90); RDW 14.7 % (11.5-15.5); WBC 10.4 k/uL (3.8-10.6)
[2017-08-15 12:23] LABS: Partial Thromboplastin Time 23.1 sec (22.0-30.0); Prothrombin Time 9.9 sec (9.0-12.0)
[2017-08-15 12:24] LABS: ALT 39 U/L (21-72); AST 30 U/L (17-59); Albumin 4.4 g/dL (3.5-5.0); Alkaline Phosphatase 82 U/L (38-126); Anion Gap 10 mmol/L; Blood Urea Nitrogen 18 mg/dL (9-20); Calcium 9.9 mg/dL (8.4-10.2); Carbon Dioxide 29 mmol/L (22-30); Chloride 99 mmol/L (98-107); Glucose 102 mg/dL (74-99); Potassium 4.6 mmol/L (3.5-5.1); Sodium 138 mmol/L (137-145); Total Protein 7.2 g/dL (6.3-8.2)
--- NOTE | 2017-08-15 12:36 | XR ---
EXAMINATION TYPE: XR chest 2V DATE OF EXAM: 08/15/2017 COMPARISON: Chest x-ray September 28, 2016 HISTORY: Cough and congestion for 3 days. TECHNIQUE: Frontal and lateral views of the chest are obtained. FINDINGS: Post CABG changes with mediastinal clips and sternal wires is present. There is chronic pa renchymal change without suspicious focal air space opacity, pleural effusion, or pneumothorax seen. The cardiac silhouette size is within normal limits. The osseous structures are demineralized. IMPRESSION: No suspicious acute pulmonary process. No significant change from prior.
[2017-08-15 13:47] LABS: Amorphous Sediment,Urine Rare /hpf; Appearance,Urine Cloudy (Clear); Bacteria,Urine Occasional /hpf; Bilirubin,Urine Negative (Negative); Blood,Urine Moderate (Negative); Color,Urine Yellow; Glucose,Urine (UA) Negative (Negative); Ketones,Urine 2+ (Negative); Leukocyte Esterase,Urine Small (Negative); Mucus,Urine Occasional /hpf; Nitrite,Urine Negative (Negative); Protein,Urine 1+ (Negative); RBC,Urine >182 /hpf (0-5); Specific Gravity,Urine 1.017 (1.001-1.035); Squamous Epithelial Cell,Urine <1 /hpf (0-4); WBC,Urine 12 /hpf (0-5)
[2017-08-15 14:53] VITALS: RESP 16
[2017-08-15 15:46] VITALS: BP 133/59; PULSE 91; TEMP 97.1
== END 2017-08-15 15:40 | disposition home or self-care (01) ==
LOC: EC 11:08
DX: J40 Bronchitis, not specified as acute or chronic (principal); I49.1 Atrial premature depolarization; R53.1 Weakness; J44.9 Chronic obstructive pulmonary disease, unspecified; I10 Essential (primary) hypertension; I25.10 Atherosclerotic heart disease of native coronary artery without angina pectoris; M19.90 Unspecified osteoarthritis, unspecified site; Z87.891 Personal history of nicotine dependence; Z79.51 Long term (current) use of inhaled steroids; Z79.82 Long term (current) use of aspirin; Z79.899 Other long term (current) drug therapy; Z88.0 Allergy status to penicillin; Z85.46 Personal history of malignant neoplasm of prostate; Z92.3 Personal history of irradiation; Z82.49 Family history of ischemic heart disease and other diseases of the circulatory system; Z95.1 Presence of aortocoronary bypass graft
CPT/HCPCS: 36415; 94640; 93005; 80053; 83605; 85025; 85610; 85730; 81001; 87040; 87086; 87502; 71020; 99284; 96365; J1956

== ENCOUNTER → 2017-10-02 | Outpatient (CLI) | payer MEDICARE ==
--- NOTE | 2017-10-02 17:00 | XR ---
EXAMINATION TYPE: XR chest 2V DATE OF EXAM: 10/02/2017 COMPARISON: 08/15/2017 HISTORY: Asthma short of breath TECHNIQUE: Frontal and lateral views of the chest are obtained. FINDINGS: There is no heart failure nor confluent pneumonic infiltrate. There are sternal wires. Cos tophrenic angles are clear. Thoracic aorta is atheromatous. Bony thorax is intact. IMPRESSION: No active cardiopulmonary disease. There is clearing of small area of focal atelectasis in the left midlung compared to old exam.
== END | disposition home or self-care (01) ==
LOC: RADXRMAIN 16:16
PROVIDERS: ATTEND Family Medicine
DX: J98.11 Atelectasis (principal)
CPT/HCPCS: 71046

== ENCOUNTER → 2017-10-23 | Outpatient (CLI) | payer MEDICARE ==
[2017-10-23 11:19] LABS: Anion Gap 8 mmol/L; Blood Urea Nitrogen 21 mg/dL (9-20); Calcium 9.5 mg/dL (8.4-10.2); Carbon Dioxide 30 mmol/L (22-30); Chloride 95 mmol/L (98-107); Glucose 74 mg/dL (74-99); Potassium 4.3 mmol/L (3.5-5.1); Sodium 133 mmol/L (137-145)
[2017-10-23 11:58] LABS: HGB 14.5 gm/dL (13.0-17.5); MCH 30.2 pg (25.0-35.0); MCV 91.5 fL (80.0-100.0); Mean Platelet Volume 6.8; Platelet Count 279 k/uL (150-450); RBC 4.81 m/uL (4.30-5.90); WBC 10.2 k/uL (3.8-10.6)
== END | disposition home or self-care (01) ==
LOC: LABPAT 10:26
PROVIDERS: ATTEND Urology
DX: Z01.812 Encounter for preprocedural laboratory examination (principal); R31.0 Gross hematuria; D49.4 Neoplasm of unspecified behavior of bladder; I10 Essential (primary) hypertension; Z79.899 Other long term (current) drug therapy
CPT/HCPCS: 36415; 80048; 85027; 87086

== ENCOUNTER 2017-10-30 07:13 | Day surgery (SDC) | payer MEDICARE ==
[2017-10-27 11:34] VITALS: BMI 21.9
[~2017-10-30 07:13] MED LIST: CLINDAMYCIN 900 MG in DEXTROSE 5% IN WATER 50 ML IVPB ONE; MORPHINE SULFATE 4 MG/ML SYRINGE IV PRN; ONDANSETRON 4 MG/2 ML VIAL IVP ONE
[2017-10-30] MEDS: LACTATED RINGERS 1,000 ML IV SCH ×2 (08:17→08:29)
[2017-10-30] MEDS ORDERED: DEXAMETHASONE SOD PHOSPHATE 10 MG/ML 1 ML VIAL IV ONE (08:25)
[2017-10-30] MEDS ORDERED: MIDAZOLAM 2 MG/2 ML VIAL ONE (08:32)
[2017-10-30] MEDS ORDERED: PROPOFOL 10 MG/ML 20 ML VIAL IV ONE (08:32)
[2017-10-30] MEDS ORDERED: LIDOCAINE 1% INJ 10MG/ML (20 ML MDV) ONE (08:32)
[2017-10-30] MEDS ORDERED: SUCCINYLCHOLINE CHLORIDE 100 MG/5 ML SYR IV ONE (08:32)
[2017-10-30] MEDS ORDERED: fentaNYL (PF) 50 MCG/ML 2 ML AMP ONE (08:32)
[2017-10-30] MEDS ORDERED: ePHEDrine SULFATE/0.9% NACL/PF 50 MG/5 ML SYRINGE IV ONE (08:32)
[2017-10-30] MEDS ORDERED: LACTATED RINGERS 1,000 ML IV ONE (09:33)
[2017-10-30 09:55] VITALS: RESP 16; TEMP 97
--- NOTE | 2017-10-30 09:55 | P.OP ---
Date of Procedure: 10/30/17 Preoperative Diagnosis: Gross Hematuria Postoperative Diagnosis: Bladder Calculi Procedure(s) Performed: Cystoscopy with cystolithotripsy, fulguration of bleeder Anesthesia: SANGEETA Surgeon: Cayden Gonslaes Estimated Blood Loss (ml): 5 IV fluids (ml): 1,000 Pathology: other (Bladder calculus fragments, sent for chemical analysis) Condition: stable Disposition: PACU Indications for Procedure: This patient was originally seen in 1997 for erectile dysfunction. He was referred back in 2006 for an elevated PSA level of 4.33. He was diagnosed with prostate cancer, and was treated with IMRT + ADT x 6 months. He now presents with gross painless hematuria. His upper tracts are unremarkable based on imaging studies. His PSA level is 0.1. Cystoscopy shows edema/possible tumor on the posterior bladder wall, and he will undergo TUR-BT. Operative Findings: Several bladder calculi. Inflammation of the posterior bladder wall was noted, mild in severity, most prominent in the right hemitrigone. Description of Procedure: The patient was taken to the operating room and placed in the dorsolithotomy position, with his legs supported in Gerardo stirrups. The external genitalia was prepped and draped sterilely. The 30 lens was used to introduce the 19- Maori start cystoscopic sheath through the urethra and into the bladder under direct vision. The anterior urethra appeared normal. The prostatic urethra was partially obstructed by a high median bar. No urothelial changes were noted within the prostatic urethra. The bladder was entered. Several bladder calculi were seen, the largest of which measured approximately 1.5 cm in diameter. Using the 600 holmium laser probe, lithotripsy was performed. The BuildFax evacuator was used to remove all of the calculus fragments from the bladder. No tumors were seen within the bladder. There were several diverticuli. Inflammation was noted on the posterior bladder wall, most prominent on the right hemitrigone. The degree of severity was mild. The left ureteral orifice was identified, but the right was not due to the inflammation. After removing the calculus fragments, a small amount of oozing was noted from the vesical neck at the right posterolateral location. The Bugbee electrode was used to fulgurate this, attaining excellent hemostasis. The cystoscope was removed, and an 18-Maori Tomlinson catheter was placed. The return was clear. The patient tolerated the procedure well was taken to the recovery room in stable condition.
[2017-10-30 11:31] VITALS: BP 141/66; PULSE 81
== END 2017-10-30 12:20 | disposition home or self-care (01) ==
LOC: OR 07:13
PROVIDERS: ATTEND Urology
DX: N21.0 Calculus in bladder (principal); N32.3 Diverticulum of bladder; Z85.46 Personal history of malignant neoplasm of prostate; Z92.3 Personal history of irradiation; N40.0 Benign prostatic hyperplasia without lower urinary tract symptoms; R15.9 Full incontinence of feces; R32 Unspecified urinary incontinence; I25.10 Atherosclerotic heart disease of native coronary artery without angina pectoris; I10 Essential (primary) hypertension; I73.9 Peripheral vascular disease, unspecified; J43.9 Emphysema, unspecified; I25.2 Old myocardial infarction; M19.90 Unspecified osteoarthritis, unspecified site; M51.36 Other intervertebral disc degeneration, lumbar region; F32.9 Major depressive disorder, single episode, unspecified; G40.909 Epilepsy, unspecified, not intractable, without status epilepticus; Z79.82 Long term (current) use of aspirin; Z79.899 Other long term (current) drug therapy; Z88.0 Allergy status to penicillin; Z86.73 Personal history of transient ischemic attack (TIA), and cerebral infarction without residual deficits; Z87.891 Personal history of nicotine dependence; Z95.1 Presence of aortocoronary bypass graft; F39 Unspecified mood [affective] disorder
CPT/HCPCS: 82365; 52317; C1758; J2250; J1100; J2405; J2001; J3010; J0330; J2704

== ENCOUNTER → 2018-03-26 | Outpatient (CLI) | payer MEDICARE ==
--- NOTE | 2018-03-26 14:22 | XR ---
Right RIBS with chest x-ray HISTORY: Trauma and pain Frontal view of the chest, 4 views of the right ribs submitted on 5 images and correlated to prior est x-ray 10/02/2017 Patient is post median sternotomy. No acute cardiopulmonary disease is evident. Patient is rotated. N o evident displaced rib fracture. Suspect a spinal curvature. IMPRESSION: No evident acute abnormality. Bone scan could be performed for increased sensitivity as i ndicated.
== END | disposition home or self-care (01) ==
LOC: RADXRMAIN 11:37
PROVIDERS: ATTEND Family Medicine
DX: S29.9XXA Unspecified injury of thorax, initial encounter (principal); J44.9 Chronic obstructive pulmonary disease, unspecified

== ENCOUNTER 2019-05-18 13:45 | Inpatient (IN) | payer MEDICARE ==
[2019-05-18] MEDS ORDERED: SODIUM CHLORIDE 0.9% 1,000 ML IV STA (14:40)
--- NOTE | 2019-05-18 15:13 | XR ---
EXAMINATION TYPE: XR chest 2V DATE OF EXAM: 05/18/2019 COMPARISON: March 26, 2018 HISTORY: Shortness of breath TECHNIQUE: Frontal and lateral views of the chest are obtained. FINDINGS: Scattered senescent parenchymal changes noted. Hyperinflation compatible with COPD. No evidence for infiltrate. No evidence for atelectasis. Heart size is stable. Mediastinal structures are stable and grossly unremarkable. No evidence for hilar prominence. Degenerative changes dorsal spine. IMPRESSION: 1. No evidence for acute pulmonary disease.
[2019-05-18 15:17] LABS: Basophils # (A) 0.1 k/uL (0-0.2); Basophils % (A) 1 %; Eosinophils # (A) 0.1 k/uL (0-0.7); Eosinophils % (A) 0 %; HCT 36.7 % (39.0-53.0); HGB 12.8 gm/dL (13.0-17.5); Lymphocytes # (A) 0.3 k/uL (1.0-4.8); Lymphocytes % (A) 2 %; MCH 29.3 pg (25.0-35.0); MCHC 34.9 g/dL (31.0-37.0); Mean Platelet Volume 6.1; Monocytes # (A) 0.7 k/uL (0-1.0); Monocytes % (A) 4 %; Neutrophils # (A) 15.6 k/uL (1.3-7.7); Neutrophils % (A) 92 %; Platelet Count 184 k/uL (150-450); RBC 4.37 m/uL (4.30-5.90); RDW 13.9 % (11.5-15.5)
[2019-05-18 15:21] LABS: Albumin 3.3 g/dL (3.5-5.0); Calcium 8.4 mg/dL (8.4-10.2); Magnesium 2.1 mg/dL (1.6-2.3); Potassium 4.6 mmol/L (3.5-5.1); Total Bilirubin 0.7 mg/dL (0.2-1.3); Total Protein 5.9 g/dL (6.3-8.2)
[2019-05-18 15:30] LABS: INR 0.9 (<1.2); Partial Thromboplastin Time 23.6 sec (22.0-30.0); Prothrombin Time 10.2 sec (9.0-12.0)
[2019-05-18] MEDS ORDERED: NALOXONE 0.4 MG/ML 1 ML VIAL IV PRN (16:09)
--- NOTE | 2019-05-18 16:17 | ED ---
General Adult HPI - General Chief complaint: Weakness Stated complaint: weakness Time Seen by Provider: 05/18/19 14:20 Source: patient, EMS, RN notes reviewed Mode of arrival: EMS - History of Present Illness Initial comments: 84-year-old male with a past medical history of asthma, CAD, prostate cancer, COPD, hypertension, CABG 10 years ago presents to the emergency department for a chief complaint of weakness. Daughter states the patient has been weak for about 2-3 days. States that he has help at home and he was unable to get out of bed today. Daughter states that he had a urinary tract infection a couple weeks ago so she is not sure if she he is still having the sore throat resolved. Denies any fevers. Admits to mild cough and congestion. Denies sore throat. D enies abdominal pain or chest pain.Patient has no other complaints at this time including shortness of breath, chest pain, abdominal pain, nausea or vomiting, headache, or visual changes. - Related Data Home Medications Medication Instructions Recorded Confirmed Budesonide-Formot 160-4.5 Mcg 2 puff INHALATION RT-BID 12/27/14 05/18/19 [Symbicort 160-4.5 Mcg Inhaler] Ipratropium-Albuterol Nebulize 3 ml INHALATION RT-QID 05/20/16 05/18/19 [Duoneb 0.5 mg-3 mg/3 ml Soln] Aspirin 81 mg PO DAILY 08/15/17 05/18/19 amLODIPine BESYLATE [Norvasc] 2.5 mg PO DAILY 08/15/17 05/18/19 Previous Rx's Medication Instructions Recorded Tamsulosin [Flomax] 0.4 mg PO DAILY #30 cap 10/30/17 Allergies Allergy/AdvReac Type Severity Reaction Status Date / Time amoxicillin Allergy Rash/Hives Verified 05/18/19 14:46 Penicillins Allergy Rash/Hives Verified 05/18/19 14:46 Review of Systems ROS Statement: Those systems with pertinent positive or pertinent negative responses have been documented in the HPI. ROS Other: All systems not noted in ROS Statement are negative. Past Medical History Past Medical History: Asthma, Coronary Artery Disease (CAD), Cancer, COPD, Hypertension, Osteoarthritis (OA), Prostate Disorder, Respiratory Disorder Additional Past Medical History / Comment(s): PT STATES CABG 10 YEARS AGO. RADIATION THERAPY FOR PROSTATE CA 15 YEARS AGO History of Any Multi-Drug Resistant Organisms: None Reported Past Surgical History: Coronary Bypass/CABG, Heart Catheterization Additional Past Surgical History / Comment(s): right carotid endarectomy Past Anesthesia/Blood Transfusion Reactions: No Reported Reaction Past Psychological History: No Psychological Hx Reported Smoking Status: Former smoker - Past Family History Father Family Medical History: CVA/TIA, Myocardial Infarction ([place]), Osteoarthritis (OA), Prostate Disorder General Exam General appearance: alert, in no apparent distress Head exam: Present: atraumatic, normocephalic, normal inspection Eye exam: Present: normal appearance, PERRL, EOMI. Absent: scleral icterus, conjunctival injection, periorbital swelling ENT exam: Present: normal exam, normal oropharynx, mucous membranes moist, TM's normal bilaterally, normal external ear exam Neck exam: Present: normal inspection, full ROM. Absent: tenderness, meningismus, lymphadenopathy Respiratory exam: Present: normal lung sounds bilaterally. Absent: respiratory distress, wheezes, rales, rhonchi, stridor Cardiovascular Exam: Present: regular rate, normal rhythm, normal heart sounds. Absent: systolic murmur, diastolic murmur, rubs, gallop, clicks GI/Abdominal exam: Present: soft, normal bowel sounds. Absent: distended, tenderness, guarding, rebound, rigid Neurological exam: Present: alert Psychiatric exam: Present: normal affect, normal mood Course Vital Signs 05/18/19 05/18/19 14:03 16:55 Temperature 98.7 F Pulse Rate 98 91 Respiratory 22 16 Rate Blood Pressure 145/89 127/83 O2 Sat by Pulse 98 100 Oximetry EKG Findings - EKG Comments: EKG Findings:: Atrial fibrillation, ventricular rate 99, QRS duration 96, QTc 449 Medical Decision Making - Medical Decision Making 84-year-old male presents for weakness. This is been ongoing for the past 2-3 days. Patient has a history of urinary tract infection a couple weeks ago. Vitals are stable. EKG shows atrial fibrillation which patient does have a history of. He is on aspirin currently. CBC shows a white count of 17. CMP shows a creatinine of 4.38 and a BUN of 84. This is elevated from patient's baseline and patient is in acute renal failure. BNP is 5000. Patient is currently receiving gentle rehydration. Chest x-ray shows no evidence for acute pulmonary disease. Urinalysis does show 62 white blood cells. Daughter states that patient has had red blood cells in his urine for quite some time. He was started on Rocephin and admitted for acute renal failure, urinary tract infec tion. - Lab Data Result diagrams: 05/18/19 14:59 05/18/19 14:59 Lab Results 05/18/19 05/18/19 05/18/19 Range/Units 14:59 14:59 14:59 WBC 17.0 H (3.8-10.6) k/uL RBC 4.37 (4.30-5.90) m/uL Hgb 12.8 L (13.0-17.5) gm/dL Hct 36.7 L (39.0-53.0) % MCV 84.0 (80.0-100.0) fL MCH 29.3 (25.0-35.0) pg MCHC 34.9 (31.0-37.0) g/dL RDW 13.9 (11.5-15.5) % Plt Count 184 (150-450) k/uL Neutrophils % 92 % Lymphocytes % 2 % Monocytes % 4 % Eosinophils % 0 % Basophils % 1 % Neutrophils # 15.6 H (1.3-7.7) k/uL Lymphocytes # 0.3 L (1.0-4.8) k/uL Monocytes # 0.7 (0-1.0) k/uL Eosinophils # 0.1 (0-0.7) k/uL Basophils # 0.1 (0-0.2) k/uL PT (9.0-12.0) sec INR (<1.2) APTT (22.0-30.0) sec Sodium 131 L (137-145) mmol/L Potassium 4.6 (3.5-5.1) mmol/L Chloride 95 L (98-107) mmol/L Carbon Dioxide 21 L (22-30) mmol/L Anion Gap 15 mmol/L BUN 84 H (9-20) mg/dL Creatinine 4.38 H (0.66-1.25) mg/dL Est GFR (CKD-EPI)AfAm 13 (>60 ml/min/1.73 sqM) Est GFR (CKD-EPI)NonAf 12 (>60 ml/min/1.73 sqM) Glucose 98 (74-99) mg/dL Plasma Lactic Acid Asif 1.2 (0.7-2.0) mmol/L Calcium 8.4 (8.4-10.2) mg/dL Magnesium 2.1 (1.6-2.3) mg/dL Total Bilirubin 0.7 (0.2-1.3) mg/dL AST 32 (17-59) U/L ALT 37 (21-72) U/L Alkaline Phosphatase 82 (38-126) U/L Troponin I (0.000-0.034) ng/mL NT-Pro-B Natriuret Pep pg/mL Total Protein 5.9 L (6.3-8.2) g/dL Albumin 3.3 L (3.5-5.0) g/dL TSH 0.842 (0.465-4.680) mIU/L 05/18/19 05/18/19 05/18/19 Range/Units 14:59 14:59 14:59 WBC (3.8-10.6) k/uL RBC (4.30-5.90) m/uL Hgb (13.0-17.5) gm/dL Hct (39.0-53.0) % MCV (80.0-100.0) fL MCH (25.0-35.0) pg MCHC (31.0-37.0) g/dL RDW (11.5-15.5) % Plt Count (150-450) k/uL Neutrophils % % Lymphocytes % % Monocytes % % Eosinophils % % Basophils % % Neutrophils # (1.3-7.7) k/uL Lymphocytes # (1.0-4.8) k/uL Monocytes # (0-1.0) k/uL Eosinophils # (0-0.7) k/uL Basophils # (0-0.2) k/uL PT 10.2 (9.0-12.0) sec INR 0.9 (<1.2) APTT 23.6 (22.0-30.0) sec Sodium (137-145) mmol/L Potassium (3.5-5.1) mmol/L Chloride (98-107) mmol/L Carbon Dioxide (22-30) mmol/L Anion Gap mmol/L BUN (9-20) mg/dL Creatinine (0.66-1.25) mg/dL Est GFR (CKD-EPI)AfAm (>60 ml/min/1.73 sqM) Est GFR (CKD-EPI)NonAf (>60 ml/min/1.73 sqM) Glucose (74-99) mg/dL Plasma Lactic Acid Asif (0.7-2.0) mmol/L Calcium (8.4-10.2) mg/dL Magnesium (1.6-2.3) mg/dL Total Bilirubin (0.2-1.3) mg/dL AST (17-59) U/L ALT (21-72) U/L Alkaline Phosphatase (38-126) U/L Troponin I <0.012 (0.000-0.034) ng/mL NT-Pro-B Natriuret Pep 5060 pg/mL Total Protein (6.3-8.2) g/dL Albumin (3.5-5.0) g/dL TSH (0.465-4.680) mIU/L Disposition Clinical Impression: Acute renal failure, Leukocytosis, Urinary tract infection Disposition: ADMITTED IP TO THIS HOSP Condition: Serious Time of Disposition: 16:17
[2019-05-18 17:20] LABS: Amorphous Sediment,Urine Rare /hpf; Appearance,Urine Cloudy (Clear); Bacteria,Urine Rare /hpf; Bilirubin,Urine Negative (Negative); Blood,Urine Large (Negative); Color,Urine Yellow; Glucose,Urine (UA) Negative (Negative); Ketones,Urine Negative (Negative); Leukocyte Esterase,Urine Large (Negative); Mucus,Urine Rare /hpf; Nitrite,Urine Negative (Negative); PH, Urine 8.5 (5.0-8.0); Protein,Urine 2+ (Negative); RBC,Urine >182 /hpf (0-5); Specific Gravity,Urine 1.008 (1.001-1.035); Squamous Epithelial Cell,Urine 1 /hpf (0-4); Urobilinogen,Urine <2.0 mg/dL (<2.0); WBC,Urine 62 /hpf (0-5)
[2019-05-18] MEDS ORDERED: cefTRIAXone IN SWFI 1,000 MG/10 ML SYRINGE IVP STA (19:16)
[2019-05-18 19:44] VITALS: BMI 26.6
[2019-05-18] MEDS: SODIUM CHLORIDE 0.9% 1,000 ML IV SCH (20:51)
[2019-05-19] MEDS: SODIUM CHLORIDE 0.9% 1,000 ML IV SCH ×2 (10:03→12:47)
[2019-05-19 10:26] LABS: Calcium 8.3 mg/dL (8.4-10.2); Potassium 3.6 mmol/L (3.5-5.1)
[2019-05-19] MEDS: IPRATROPIUM-ALBUTEROL 3 ML NEB INHALATION SCH ×2 (15:45→19:41)
--- NOTE | 2019-05-19 15:49 | US ---
EXAMINATION TYPE: US kidneys/renal and bladder DATE OF EXAM: 05/19/2019 COMPARISON: US 2017 CLINICAL HISTORY: elevated creatinine and pyelonephritis. Elevated creatinine, exam done portable. EXAM MEASUREMENTS: Right Kidney: 10.3 x 5.1 x 4.7 cm Left Kidney: 10.6 x 6.3 x 5.5 cm Right Kidney: no hydronephrosis, small 1.1 x 1.4 x 1.0cm cyst mid pole Left Kidney: dilated renal pelvis, small exophytic 1.0 x 0.9 x 0.9cm cyst mid pole Bladder: not distended, peñaloza catheter No nephrolithiasis. IMPRESSION: Minimal left hydronephrosis.
--- NOTE | 2019-05-19 17:24 | HP ---
HISTORY AND PHYSICAL DATE OF SERVICE: 05/18/2019 CHIEF COMPLAINT: Ffiwrr[age]cauvg[age]ab[age]-old white male with asthma, coronary artery disease, prostate cancer, COPD, hypertension. Developed some weakness for the past 2-3 days; could get out of bed. He was found to have severe urosepsis in the emergency room and severe prerenal renal failure and dehydration and severe lethargy, at which time he was admitted with IV antibiotics and IV fluids. Awaiting infectious disease consultation. The patient was examined in the emergency room last night. HOME MEDICATIONS: 1. DuoNeb. 2. Amlodipine. 3. Symbicort. 4. Flomax. ALLERGIES: 1. AMOXICILLIN. 2. PENICILLIN. Possible rash or hives. Although he was given Rocephin without a rash last night. REVIEW OF SYSTEMS: Fourteen-point review of systems negative except for mentioned above. PAST MEDICAL HISTORY: 1. Coronary artery disease. 2. Cancer. 3. COPD. 4. Hypertension. 5. Osteoarthritis. 6. Prostate disorder. 7. Respiratory disorder. 8. History of prostate cancer 15 years ago. PAST SURGICAL HISTORY: 1. CABG. 2. Heart catheterization. SOCIAL HISTORY: Former smoker. FAMILY HISTORY: Father with myocardial infarction, osteoarthritis, prostate disorder. PHYSICAL EXAMINATION: Vital signs stable. Afebrile. Temperature 98.7, pulse 91 to 98, respiratory rate 16 to 22, blood pressure 127 to 145 over 83 to 89, oxygen 98% to 100%. CARDIOVASCULAR: S1, S2. LUNGS: Transmitted upper airway sounds. HEMATOLOGY: Negative Homans. PSYCH: Fair mood and affect. NEUROLOGIC: Alert and oriented x3. ENT: No significant adenopathy. EKG: Atrial fibrillation. ASSESSMENT: 1. Urosepsis. 2. Urinary tract infection. 3. Prerenal renal failure. 4. Acute tubular necrosis. 5. Chronic atrial fibrillation. 6. Chronic obstructive pulmonary disease. 7. Diastolic heart failure. Rehydration, as he has prerenal renal azotemia. Echo will be done, possibly CT of the chest for COPD. MMODL / IJN: [id number] /
[2019-05-19] MEDS: SYMBICORT 160-4.5 MCG INHALER INHALATION SCH (19:41)
--- NOTE | 2019-05-19 21:14 | CONS ---
CONSULTATION REASON FOR CONSULT: Renal failure. HISTORY OF PRESENT ILLNESS: Patient is an 84-year-old male who was admitted to the hospital with complaints of weakness, not feeling well. The patient denies any prior history of kidney diseases. He is not able to give a detailed history. According to his daughter, patient had a urinary tract infection which was treated with oral antibiotics as outpatient. He did have hematuria. He did have blood in his urine according to his daughter. This had not improved with a course of oral antibiotics. No history of fever per patient's daughter. It looks like he had urine retention and about 820 mL of urine was obtained when Tomlinson catheter was placed. Serum creatinine was 4.38 mg/dL yesterday. It is down to 1.73 now. Blood pressure is not low. The patient denies use of any nonsteroidal anti-inflammatory agents prior to admission. PAST MEDICAL HISTORY: Hypertension, BPH, COPD, coronary artery disease, asthma, osteoarthritis. PAST SURGICAL HISTORY: Coronary artery bypass surgery, cardiac catheterization, right carotid endarterectomy. SOCIAL HISTORY: Patient is a former smoker. REVIEW OF SYSTEMS: As per HPI. Other systems negative. MEDICATIONS: Medications at home prior to admission included Flomax, Norvasc, aspirin, and inhalers. ALLERGIES: Include AMOXICILLIN and PENICILLIN which cause rash and hives. EXAMINATION: Patient is comfortable, awake. He is not in any acute distress. Blood pressure this morning was 161/78, heart rate of 94 per minute. He is afebrile. Examination of the heart S1, S2. Examination of the lungs, bilateral breath sounds are heard. Abdomen is soft, nontender. Examination lower extremities shows trace edema bilaterally. MANAGER ANDROID exam is grossly intact. Patient is moving all 4 extremities. LABS SHOW: Sodium 139, potassium 3.64, BUN 58, serum creatinine 1.73, chloride 106. UA showed 2+ protein, blood large, RBCs more than 182. WBCs 62. ASSESSMENT: 1. Acute kidney injury secondary to urine retention, currently improved significantly. Continue with Tomlinson catheter. I will decrease the IV fluids. The patient is encouraged to increase oral intake. 2. Hypertension currently controlled. 3. Urinary tract infection as outpatient. I am not sure what the culture had grown. Urine culture is pending. The patient is maintained on empiric antibiotics post admission. 4. History of chronic obstructive pulmonary disease. 5. Coronary artery disease, history of coronary artery bypass surgery. PLAN: Decrease IV fluids. Repeat labs in a.m. Continue empiric antibiotics. Follow up on urine cultures. Check ultrasound of the kidneys. Thank you for this consultation. I will continue to follow the patient with you during his hospitalization. FERNANDEZ / VICKY: [id number] /
[2019-05-20 07:29] LABS: Basophils # (A) 0.1 k/uL (0-0.2); Basophils % (A) 1 %; Eosinophils # (A) 0.3 k/uL (0-0.7); Eosinophils % (A) 3 %; HCT 37.9 % (39.0-53.0); HGB 12.7 gm/dL (13.0-17.5); Hypochromasia Slight; Lymphocytes # (A) 1.3 k/uL (1.0-4.8); Lymphocytes % (A) 12 %; MCH 28.8 pg (25.0-35.0); MCHC 33.4 g/dL (31.0-37.0); MCV 86.3 fL (80.0-100.0); Mean Platelet Volume 6.1; Monocytes # (A) 0.9 k/uL (0-1.0); Monocytes % (A) 8 %; Neutrophils # (A) 8.2 k/uL (1.3-7.7); Neutrophils % (A) 73 %; Platelet Count 168 k/uL (150-450); RBC 4.39 m/uL (4.30-5.90); WBC 11.1 k/uL (3.8-10.6)
[2019-05-20 07:52] LABS: ALT 31 U/L (21-72); AST 23 U/L (17-59); African American GFR (CKD) >90 (>60 ml/min/1.73 sqM); Albumin 2.8 g/dL (3.5-5.0); Alkaline Phosphatase 71 U/L (38-126); Anion Gap 8 mmol/L; Blood Urea Nitrogen 32 mg/dL (9-20); Calcium 8.4 mg/dL (8.4-10.2); Carbon Dioxide 26 mmol/L (22-30); Chloride 107 mmol/L (98-107); Glucose 94 mg/dL (74-99); Potassium 3.5 mmol/L (3.5-5.1); Sodium 141 mmol/L (137-145); Total Bilirubin 0.5 mg/dL (0.2-1.3); Total Protein 5.3 g/dL (6.3-8.2)
[2019-05-20] MEDS: IPRATROPIUM-ALBUTEROL 3 ML NEB INHALATION SCH ×4 (08:33→20:21)
[2019-05-20] MEDS: SYMBICORT 160-4.5 MCG INHALER INHALATION SCH ×2 (08:33→20:21)
[2019-05-20] MEDS: TAMSULOSIN 0.4 MG CAP.ER.24H PO SCH (08:51)
[2019-05-20] MEDS: amLODIPine 2.5 MG TAB PO SCH (08:51)
[2019-05-20] MEDS: ASPIRIN 81 MG PO SCH (08:51)
[2019-05-20] MEDS: SODIUM CHLORIDE 0.9% 1,000 ML IV SCH (08:52)
--- NOTE | 2019-05-20 12:00 | ECHOF ---
Referral Reason:chf MEASUREMENTS -------- HEIGHT: 170.2 cm WEIGHT: 77.1 kg BP: 138/88 RVIDd: 4.1 cm (< 3.3) IVSd: 1.2 cm (0.6 - 1.1) LVIDd: 4.1 cm (3.9 - 5.3) LVPWd: 1.3 cm (0.6 - 1.1) IVSs: 1.4 cm LVIDs: 3.5 cm LVPWs: 1.8 cm LA Diam: 4.5 cm (2.7 - 3.8) LAESV Index (A-L): 32.67 ml/m Ao Diam: 2.8 cm (2.0 - 3.7) AV Cusp: 2.0 cm (1.5 - 2.6) TAPSE: 0.9 cm EPSS: 0.5 cm RAP: 15.00 mmHg RVSP: 69.70 mmHg MV EF SLOPE: 173.80 mm/s (70 - 150) MV EXCURSION: 2.08 cm (> 18.000) FINDINGS -------- Atrial fibrillation. The left ventricular size is normal. There is mild concentric left ventricular hypertrophy. There is severe global hypokinesis of LV . Overall left ventricular systolic function is severely impair ed with, an EF between 25 - 30 %. The right ventricle is moderately enlarged. Left atrium is mildly dilated by volume. The right atrium is normal in size and function. Interatrial and interventricular septum intact. Aortic valve is trileaflet and is mildly thickened. The mitral valve leaflets are mildly thickened. Mild mitral annular calcification present. Modera [id number] mitral regurgitation is present. Moderate to severe tricuspid regurgitation present. There is severe pulmonary hypertension. The r ight ventricular systolic pressure, as measured by Doppler, is 69.70mmHg. Trace/mild (physiologic) pulmonic regurgitation. The aortic root size is normal. Normal inferior vena cava with less than 50% inspiratory collapse consistent with estimated right atr ial pressure of 15 mmHg. There is no pericardial effusion. CONCLUSIONS -------- 1. Atrial fibrillation. 2. The left ventricular size is normal. 3. There is mild concentric left ventricular hypertrophy. 4. There is severe global hypokinesis of LV . 5. The right ventricle is moderately enlarged. 6. Left atrium is mildly dilated by volume. 7. The right atrium is normal in size and function. 8. Interatrial and interventricular septum intact. 9. Aortic valve is trileaflet and is mildly thickened. 10. The mitral valve leaflets are mildly thickened. 11. Mild mitral annular calcification present. 12. Owopqnam-sn-blsarh mitral regurgitation is present. 13. Moderate to severe tricuspid regurgitation present. 14. There is severe pulmonary hypertension. 15. The right ventricular systolic pressure, as measured by Doppler, is 69.70mmHg. 16. Trace/mild (physiologic) pulmonic regurgitation. 17. The aortic root size is normal. 18. Normal inferior vena cava with less than 50% inspiratory collapse consistent with estimated right atrial pressure of 15 mmHg. 19. There is no pericardial effusion. HELPER METAL HANGING: BEAU Gtz
--- NOTE | 2019-05-20 13:45 | CDI ---
Documentation Clarification Form Date: 05/20/2019 1:19:00 PM From: Namrata Castelan RN, CCDS Admit Date: 05/18/2019 4:07:00 PM Patient Name: Holland Garcia Visit Number: [id number] Discharge Date: ATTENTION: The Clinical Documentation Specialists (CDI) and [facility] Coding Staff appreciate your assistance in clarifying documentation. Please respond to the clarification below the line at the bottom and electronically sign. The CDI & [facility] Coding staff will review the response and follow-up if needed. Please note: Queries are made part of the Legal Health Record. If you have any questions, please contact the author of this message via ITS. Dr. Edd Armstrong The patient presented with the following: weakness, lethergy, unable to get out of bed. History/Risk Factors: UTI (with outpatient treatment), Prostate Ca (15 years ago); COPD, Hypertension Clinical Indicators: 84-year-old male with prior treatment for UTI present with complaints of weakness , cough congestion ongoing for past 2-3 days Vital sign on admission: 145/89 98 22 98.7 98% RA EKG: Atrial fibrillation with rate of 99 WBC 17.0, Creatinine 4.38, BUN 84, BNP 5060 UA: 62 WBC, Large Leukocyite esterase, Urine pH 8.5 Urine culture: No growth after 18 hours Lactic acid: 1.2 Abdomen/Bladder US: Minimal left hydronepnrosis Other Clinical Indicators: Nephrology: Acute renal failure secondary to urinary retention, Treatment: Rocephin IV, IV fluids@ 50 mls hr Flomax po In your professional opinion, please further clarify Urosepsis diagnosis, are your treating? Urinary tract infection with Sepsis Urinary tract Infection without Sepsis Other, please specify Unable to determine Link or clarify if there is associated (due to/with): Organ failure SIRS Criteria (2 or more of the following may indicate SIRS): -Temperature < 96.8F (36C) or > 101.0F (38.3C) -Heart Rate > 90 bpm -Respiratory Rate > 20 breaths/min or PaCO2 < 32 mmHg -White Blood Cell Count > 12,000 or < 4,000 cells/mm3 or > 10% bands -Lactate >2.0 mmol/L (>4.0 is equivalent to septic shock) (Last Revision: November 2017) MTDD
--- NOTE | 2019-05-20 17:08 | PN ---
PROGRESS NOTE The patient is seen for followup for acute kidney injury, which appears to be mainly obstructive uropathy. The patient had Tomlinson catheter placed on admission. His creatinine has gone down from 4.3 to 0.81 mg/dL today. He is comfortable, awake. He is not in any acute distress. He has been eating well. PHYSICAL EXAMINATION: This morning blood pressure was 139/92, heart rate of 90 per minute. He is afebrile. Examination of the heart S1, S2. Examination of the lungs, bilateral breath sounds are heard. Abdomen is soft, nontender. Examination of lower extremities shows no significant edema. TANK TRUCK DRIVER exam grossly intact. LABS: Show sodium 141, potassium 3.5, BUN 32 serum creatinine 0.8, hemoglobin 12.7 g/dL. ASSESSMENT: 1. Acute kidney injury, obstructive uropathy, currently significantly improved post Tomlinson catheter placement. Continue with the Tomlinson catheter for now. Continue with the Flomax. 2. Pyuria from a Tomlinson catheter specimen. Urine culture showing no growth. The patient is on empiric antibiotics. 3. Hypertension controlled. 4. Benign prostatic hypertrophy maintained on Flomax with obstructive uropathy and currently with indwelling Tomlinson catheter. PLAN: Continue to encourage increased oral intake. We can discontinue the IV fluids and patient should follow up with Urology as outpatient. MMODL / IJN: [id number] /
--- NOTE | 2019-05-20 19:16 | P.GSCN ---
History of Present Illness Consult date: 05/20/19 Reason for Consult: Gross Hematuria/Urinary Retention Requesting physician: Edd Armstrong History of present illness: 84-year-old male admitted for weakness, he was recently treated for UTI. urology is consulted for urinary retention and gross hematuria. patient was in retention, unknown amount and a Tomlinson catheter was placed in the emergency department. He indicates he is been having difficulty voiding the last few days. Gross hematuria was noticed this afternoon. He has history of prostate cancer treated with radiation. He is a patient of Dr. Gonsales. He underwent a cystolitholapaxy in 2018 and at that time he also underwent a gross hematuria workup, was only significant for bladder stones. during this admission he underwent renal ultrasound which showed minimal left-sided hydronephrosis. Review of Systems - Constitutional Reports weakness, Denies chills, Denies fever - Cardiovascular Denies chest pain, Denies edema, Denies shortness of breath - Respiratory Denies dyspnea, Denies wheezing - Gastrointestinal Denies abdominal pain, Denies nausea, Denies vomiting - Neurological Reports weakness, Denies confusion Past Medical History Past Medical History: Asthma, Coronary Artery Disease (CAD), Cancer, COPD, Hypertension, Osteoarthritis (OA), Prostate Disorder, Respiratory Disorder Additional Past Medical History / Comment(s): PT STATES CABG 10 YEARS AGO. RADIATION THERAPY FOR PROSTATE CA 15 YEARS AGO History of Any Multi-Drug Resistant Organisms: None Reported Past Surgical History: Coronary Bypass/CABG, Heart Catheterization Additional Past Surgical History / Comment(s): right carotid endarectomy Past Anesthesia/Blood Transfusion Reactions: No Reported Reaction Past Psychological History: No Psychological Hx Reported Smoking Status: Former smoker - Past Family History Father Family Medical History: CVA/TIA, Myocardial Infarction ([place]), Osteoarthritis ([place]), Prostate Disorder Additional Family Medical History / Comment(s): leukemia Medications and Allergies Home Medications Medication Instructions Recorded Confirmed Type Budesonide-Formot 160-4.5 Mcg 2 puff INHALATION RT-BID 12/27/14 05/18/19 History [Symbicort 160-4.5 Mcg Inhaler] Ipratropium-Albuterol Nebulize 3 ml INHALATION RT-QID 05/20/16 05/18/19 History [Duoneb 0.5 mg-3 mg/3 ml Soln] Aspirin 81 mg PO DAILY 08/15/17 05/18/19 History amLODIPine BESYLATE [Norvasc] 2.5 mg PO DAILY 08/15/17 05/18/19 History Tamsulosin [Flomax] 0.4 mg PO DAILY #30 cap 10/30/17 05/18/19 Rx Allergies Allergy/AdvReac Type Severity Reaction Status Date / Time amoxicillin Allergy Rash/Hives Verified 05/18/19 14:46 Penicillins Allergy Rash/Hives Verified 05/18/19 14:46 Surgical - Exam Vital Signs Temp Pulse Resp BP Pulse Ox 98.7 F 98 22 145/89 98 05/18/19 14:03 05/18/19 14:03 05/18/19 14:03 05/18/19 14:03 05/18/19 14:03 - General well developed, well nourished, no distress, no pain - ENT no hearing loss, no nasal discharge - Respiratory normal expansion, normal respiratory effort - Abdomen Abdomen: soft, non tender, no rebound, no distended - Psychiatric oriented to time, oriented to person, oriented to place Results - Labs 05/20/19 06:29 05/20/19 06:29 Abnormal Lab Results - Last 24 Hours (Table) 05/20/19 05/20/19 Range/Units 06:29 06:29 WBC 11.1 H (3.8-10.6) k/uL Hgb 12.7 L (13.0-17.5) gm/dL Hct 37.9 L (39.0-53.0) % Neutrophils # 8.2 H (1.3-7.7) k/uL BUN 32 H (9-20) mg/dL Total Protein 5.3 L (6.3-8.2) g/dL Albumin 2.8 L (3.5-5.0) g/dL Microbiology - Last 24 Hours (Table) 05/18/19 20:00 Urine Culture - Final Urine,Catheterized Diabetes panel 05/20/19 Range/Units 06:29 Sodium 141 (137-145) mmol/L Potassium 3.5 (3.5-5.1) mmol/L Chloride 107 (98-107) mmol/L Carbon Dioxide 26 (22-30) mmol/L BUN 32 H (9-20) mg/dL Creatinine 0.81 (0.66-1.25) mg/dL Glucose 94 (74-99) mg/dL Calcium 8.4 (8.4-10.2) mg/dL AST 23 (17-59) U/L ALT 31 (21-72) U/L Alkaline Phosphatase 71 (38-126) U/L Total Protein 5.3 L (6.3-8.2) g/dL Albumin 2.8 L (3.5-5.0) g/dL Calcium panel 05/20/19 Range/Units 06:29 Calcium 8.4 (8.4-10.2) mg/dL Albumin 2.8 L (3.5-5.0) g/dL Pituitary panel 05/20/19 Range/Units 06:29 Sodium 141 (137-145) mmol/L Potassium 3.5 (3.5-5.1) mmol/L Chloride 107 (98-107) mmol/L Carbon Dioxide 26 (22-30) mmol/L BUN 32 H (9-20) mg/dL Creatinine 0.81 (0.66-1.25) mg/dL Glucose 94 (74-99) mg/dL Calcium 8.4 (8.4-10.2) mg/dL Adrenal panel 05/20/19 Range/Units 06:29 Sodium 141 (137-145) mmol/L Potassium 3.5 (3.5-5.1) mmol/L Chloride 107 (98-107) mmol/L Carbon Dioxide 26 (22-30) mmol/L BUN 32 H (9-20) mg/dL Creatinine 0.81 (0.66-1.25) mg/dL Glucose 94 (74-99) mg/dL Calcium 8.4 (8.4-10.2) mg/dL Total Bilirubin 0.5 (0.2-1.3) mg/dL AST 23 (17-59) U/L ALT 31 (21-72) U/L Alkaline Phosphatase 71 (38-126) U/L Total Protein 5.3 L (6.3-8.2) g/dL Albumin 2.8 L (3.5-5.0) g/dL Assessment and Plan Assessment: 84-year-old male admitted with weakness. Urology is consulted for gross hematuria and urinary. He underwent a hematuria workup back in October 2017 which was significant for a bladder stone he is status post cystolitholapaxy Plan: -Given his hydronephrosis his hematuria and leukocytosis we'll obtain a CT renal stone to rule out a stone -Keep Tomlinson for 7 days, can be started on flomax given his retention -Can f/u in 1 week for TOV with Dr Gonsales
--- NOTE | 2019-05-20 23:06 | P.CONS ---
History of Present Illness - Reason for Consult Consult date: 05/19/19 UTI Requesting physician: Edd Armstrong - Chief Complaint weakness and no energy x 2 days - History of Present Illness Patient is 84-year-old male who was brought into the ER at [facility] for evaluation of generalized weakness and low energy symptom has been going on for about 2 to 3 days before the patient was brought into the hospital patient also was recently treated for urinary tract infection in the outpatient setting on arrival to the ER the patient has been afebrile however he did have elevated white count and elevated creatinine patient was noticed to have urinary retention requiring Tomlinson catheter placement with evidence of hematuria patient complaining of some lower abdominal pain more of a dull aching 3-4 obtained had no radiation some nausea but no vomiting and no diarrhea patient did receive a dose of Rocephin 1 g in the area patient has been admitted hospital infectious disease was consulted for further recommendation about antibiotic therapy Review of Systems CONSTITUTIONAL: Positive for weakness. low grade Fever EYES: No complaint. ENT:No complaint. RESPIRATORY: No complaint. CARDIOVASCULAR: No complaint. GENITOURINARY: as per HPI GASTROINTESTINAL: No complaint. MUSCULOSKELETAL: No complaint. INTEGUMENTARY: No complaint. PSYCHOLOGICAL: No complaint. ENDOCRINE: No complaint. NEUROLOGIC: No complaint. Past Medical History Past Medical History: Asthma, Coronary Artery Disease (CAD), Cancer, COPD, Hypertension, Osteoarthritis (OA), Prostate Disorder, Respiratory Disorder Additional Past Medical History / Comment(s): PT STATES CABG 10 YEARS AGO. RADIATION THERAPY FOR PROSTATE CA 15 YEARS AGO History of Any Multi-Drug Resistant Organisms: None Reported Past Surgical History: Coronary Bypass/CABG, Heart Catheterization Additional Past Surgical History / Comment(s): right carotid endarectomy Past Anesthesia/Blood Transfusion Reactions: No Reported Reaction Past Psychological History: No Psychological Hx Reported Smoking Status: Former smoker - Past Family History Father Family Medical History: CVA/TIA, Myocardial Infarction ([place]), Osteoarthritis (OA), Prostate Disorder Additional Family Medical History / Comment(s): leukemia Medications and Allergies Home Medications Medication Instructions Recorded Confirmed Type Budesonide-Formot 160-4.5 Mcg 2 puff INHALATION RT-BID 12/27/14 05/18/19 History [Symbicort 160-4.5 Mcg Inhaler] Ipratropium-Albuterol Nebulize 3 ml INHALATION RT-QID 05/20/16 05/18/19 History [Duoneb 0.5 mg-3 mg/3 ml Soln] Aspirin 81 mg PO DAILY 08/15/17 05/18/19 History amLODIPine BESYLATE [Norvasc] 2.5 mg PO DAILY 08/15/17 05/18/19 History Tamsulosin [Flomax] 0.4 mg PO DAILY #30 cap 10/30/17 05/18/19 Rx Allergies Allergy/AdvReac Type Severity Reaction Status Date / Time amoxicillin Allergy Rash/Hives Verified 05/18/19 14:46 Penicillins Allergy Rash/Hives Verified 05/18/19 14:46 Physical Exam Vitals: Vital Signs Temp Pulse Pulse Resp BP BP Pulse Ox 05/19/19 11:19 98.5 F 93 16 138/88 97 05/19/19 08:00 94 18 05/19/19 04:36 98.2 F 94 18 161/78 97 05/18/19 20:32 98.7 F 113 H 16 119/70 97 05/18/19 16:55 91 16 127/83 100 Intake and Output 05/18/19 05/19/19 05/19/19 22:59 06:59 14:59 Intake Total 350 800 Output Total 820 1900 900 Balance -470 -1100 -900 Intake: Intake, IV Titration 350 800 Amount Sodium Chloride 0.9% 1, 300 800 000 ml @ 100 mls/hr IV . Q10H [facility] Rx#:[id number] cefTRIAXone 1 gm In 50 Sodium Chloride 0.9% 50 ml @ 100 mls/hr IVPB ONCE ONE Rx#:[id number] Output: Urine 820 1900 900 Uretheral (Tomlinson) 820 Other: Voiding Method Indwelling Catheter Indwelling Catheter GENERAL DESCRIPTION: Elderly male lying in bed, no distress. No tachypnea or accessory muscle of respiration use. HEENT: Shows Pallor , no scleral icterus. Oral mucous membrane is dry. NECK: Trachea central, no thyromegaly. LUNGS: Unlabored breathing. Decreased breath sound at the base. No wheeze or crackle. HEART: S1, S2, regular rate and rhythm. ABDOMEN: Soft, no tenderness , guarding or rigidity EXTREMITIES: No edema of feet. SKIN: No rash, no masses palpable. NEUROLOGICAL: The patient is awake, alert, oriented x3, mood and affect normal. Results CBC & Chem 7: 05/20/19 06:29 05/20/19 06:29 Labs: Abnormal Lab Results - Last 24 Hours (Table) 05/18/19 05/18/19 05/18/19 Range/Units 14:59 14:59 16:57 WBC 17.0 H (3.8-10.6) k/uL Hgb 12.8 L (13.0-17.5) gm/dL Hct 36.7 L (39.0-53.0) % Neutrophils # 15.6 H (1.3-7.7) k/uL Lymphocytes # 0.3 L (1.0-4.8) k/uL Sodium 131 L (137-145) mmol/L Chloride 95 L (98-107) mmol/L Carbon Dioxide 21 L (22-30) mmol/L BUN 84 H (9-20) mg/dL Creatinine 4.38 H (0.66-1.25) mg/dL Glucose (74-99) mg/dL Calcium (8.4-10.2) mg/dL Total Protein 5.9 L (6.3-8.2) g/dL Albumin 3.3 L (3.5-5.0) g/dL Urine pH 8.5 H (5.0-8.0) Urine Protein 2+ H (Negative) Urine Blood Large H (Negative) Ur Leukocyte Esterase Large H (Negative) Urine RBC >182 H (0-5) /hpf Urine WBC 62 H (0-5) /hpf Amorphous Sediment Rare H (None) /hpf Urine Bacteria Rare H (None) /hpf Urine Mucus Rare H (None) /hpf 05/19/19 Range/Units 09:07 WBC (3.8-10.6) k/uL Hgb (13.0-17.5) gm/dL Hct (39.0-53.0) % Neutrophils # (1.3-7.7) k/uL Lymphocytes # (1.0-4.8) k/uL Sodium (137-145) mmol/L Chloride (98-107) mmol/L Carbon Dioxide (22-30) mmol/L BUN 58 H (9-20) mg/dL Creatinine 1.73 H (0.66-1.25) mg/dL Glucose 113 H (74-99) mg/dL Calcium 8.3 L (8.4-10.2) mg/dL Total Protein (6.3-8.2) g/dL Albumin (3.5-5.0) g/dL Urine pH (5.0-8.0) Urine Protein (Negative) Urine Blood (Negative) Ur Leukocyte Esterase (Negative) Urine RBC (0-5) /hpf Urine WBC (0-5) /hpf Amorphous Sediment (None) /hpf Urine Bacteria (None) /hpf Urine Mucus (None) /hpf Microbiology - Last 24 Hours (Table) 05/18/19 20:00 Urine Culture - Preliminary Urine,Catheterized Assessment and Plan Assessment: Patient presented to the hospital with generalized weakness and no energy,in this patient who did have evidence of urinary retention, elevated white count is significantly positive UA likely representing complicated [place] infection likely from enteric gram-negative pathogen Plan: 1-Rocephin 1 g IVPB daily 2-obtain ultrasound of the kidneys and the bladder area 3-gentle IV fluid We will follow on clinical condition and cultures to further adjust medication if needed Thank you for this consultation we will follow the patient along with you Time with Patient: Greater than 30
--- NOTE | 2019-05-20 23:26 | PN ---
PROGRESS NOTE DATE OF SERVICE: 06/20/2019 REASON FOR FOLLOWUP: Complicated urinary tract infection. INTERVAL HISTORY: The patient is currently afebrile. The patient has been complaining of shortness of breath. He did have a congested cough but no sputum production. No nausea, no vomiting. No abdominal pain. He did have a Tomlinson catheter with gross hematuria. No diarrhea. PHYSICAL EXAMINATION: Blood pressure 174/91 with pulse of 114, temperature 98.6. He is 95% on room air. General description is an elderly male lying in bed in no distress. RESPIRATORY SYSTEM: Unlabored breathing. Some coarse breath sounds at the base bilaterally. No wheeze. HEART: S1, S2. Regular rate and rhythm. ABDOMEN: Soft. No tenderness. EXTREMITIES: No edema of the feet. LABS: The patient did have improvement in his creatinine, down to 0.81, white count down to 11.1. Urine culture is currently pending. DIAGNOSTIC IMPRESSION AND PLAN: Patient admitted to hospital with generalized weakness. Did have elevated white count, urinary retention requiring Tomlinson catheter placement in this patient who did have a positive UA with cultures currently pending. To continue with Rocephin while waiting for the culture to finalize. Continue with supportive care. MMODL / IJN: [id number] /
--- NOTE | 2019-05-21 00:02 | PN ---
PROGRESS NOTE Still has Tomlinson catheter and a large amount of hematuria, bright red blood. Urology consult pending. Creatinine is greatly improved, back to normal range at 0.75. Echo shows 20% to 25% ejection fraction. Systolic CHF. Cardiology has been consulted. Elevated BNP of 5000. ASSESSMENT: 1. Systolic congestive heart failure. 2. Acute tubular necrosis. 3. Urosepsis. 4. Hematuria. 5. Atrial fibrillation. Prognosis guarded. Continue with broad-spectrum antibiotics. Wait for hematuria consult and cardiology consult on discharge. MMODL / IJN: [id number] /
[2019-05-21] MEDS: IPRATROPIUM-ALBUTEROL 3 ML NEB INHALATION SCH ×4 (07:10→20:30)
[2019-05-21] MEDS: SYMBICORT 160-4.5 MCG INHALER INHALATION SCH ×2 (07:10→20:30)
[2019-05-21 07:20] LABS: Basophils # (A) 0.1 k/uL (0-0.2); Basophils % (A) 1 %; Eosinophils # (A) 0.4 k/uL (0-0.7); Eosinophils % (A) 4 %; HCT 39.9 % (39.0-53.0); Hypochromasia Slight; Lymphocytes # (A) 1.4 k/uL (1.0-4.8); Lymphocytes % (A) 15 %; MCH 29.4 pg (25.0-35.0); MCHC 32.7 g/dL (31.0-37.0); MCV 89.9 fL (80.0-100.0); Monocytes # (A) 0.8 k/uL (0-1.0); Monocytes % (A) 9 %; Neutrophils # (A) 6.7 k/uL (1.3-7.7); Neutrophils % (A) 69 %; Platelet Count 183 k/uL (150-450); RBC 4.44 m/uL (4.30-5.90); WBC 9.7 k/uL (3.8-10.6)
[2019-05-21 07:40] LABS: ALT 27 U/L (21-72); AST 26 U/L (17-59); African American GFR (CKD) >90 (>60 ml/min/1.73 sqM); Albumin 2.8 g/dL (3.5-5.0); Alkaline Phosphatase 76 U/L (38-126); Anion Gap 8 mmol/L; Blood Urea Nitrogen 19 mg/dL (9-20); Calcium 8.3 mg/dL (8.4-10.2); Carbon Dioxide 27 mmol/L (22-30); Chloride 106 mmol/L (98-107); Glucose 94 mg/dL (74-99); Potassium 3.6 mmol/L (3.5-5.1); Sodium 141 mmol/L (137-145); Total Bilirubin 0.6 mg/dL (0.2-1.3); Total Protein 5.3 g/dL (6.3-8.2)
[2019-05-21] MEDS: TAMSULOSIN 0.4 MG CAP.ER.24H PO SCH (07:58)
[2019-05-21] MEDS: amLODIPine 2.5 MG TAB PO SCH ×2 (07:58→20:23)
[2019-05-21] MEDS: ASPIRIN 81 MG PO SCH (07:58)
--- NOTE | 2019-05-21 09:48 | XR ---
EXAMINATION TYPE: XR chest 1V portable DATE OF EXAM: 05/21/2019 COMPARISON: 05/18/2019 HISTORY: Weakness TECHNIQUE: Single frontal view of the chest is obtained. FINDINGS: Postsurgical changes. No pneumothorax. There is blunting the right costophrenic angle is s ubsegmental consolidation at the right lung base. No overt failure. Diffuse osteopenia and arthropath y of the shoulders. IMPRESSION: Right basilar infiltrate and small pleural effusion.
[2019-05-21] MEDS ORDERED: FUROSEMIDE 10 MG/ML 2 ML VIAL IV ONE (10:36)
--- NOTE | 2019-05-21 13:08 | P.CRDCN ---
History of Present Illness History of present illness: This is a pleasantly confused 84-year-old male past medical history significant for coronary artery disease status post bypass grafting, hypertension, asthma, COPD, peripheral vascular disease status post right carotid endarterectomy and former nicotine dependence. 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 We've been asked to see him in consultation secondary to cardiomyopathy. He presented to the hospital on May 18 with a chief complaint of weakness. Apparently he was brought in by his daughter and she states he has been overly weak for the previous 2-3 days and was unable to get out of bed. He was being treated for outpatient urinary tract infection at the time. EKG at the time of admission reveals atrial fibrillation. There is no documented history of this in the chart previously and the patient himself denies having been told he has a-fib. An echocariogram was obtained revealing severely impaired LV systolic function with EF 25-30% with global hypokinesa, moderate-severe MR, moderate-severe TR and severe pulmonary hypertension with RVSP of 69 mmHg. previous echocardiograms 2016 and 2017 have been reviewed and reveal normal LV systolic function. On admission he was found to be in acute renal failure with creatinine over 4. Per the nursing staff he was having significant urinary retention and once the peñaloza catheter was placed he had significant amount of urine output. His creatinine has been improving since admission. Today is 0.56. Chest x-ray obtained this morning reveals a right basilar infiltrate and small pleural effusion with no overt heart failure noted. Laboratory data reviewed, WBC on admission was 17 repeat today 9.7, hemoglobin 13, platelets 183, sodium 141, potassium 3.6, creatinine 0.56 down from 4.38, magnesium on admission 2.1, proBNP on admission 5060, TSH 1.62. Chronic daily cardiac medications at home include aspirin 81 mg daily and 2.5 of Norvasc daily. At the time of my exam: CONSTITUTIONAL: Denies fever. Denies chills. EYES: Denies blurred vision. Denies vision changes. Denies eye pain. EARS, NOSE, MOUTH & THROAT: Denies headache. Denies sore throat. Denies ear pain. CARDIOVASCULAR: Denies chest pain. Complains of shortness of breath. Denies orthopnea. Denies PND. Denies palpitations. RESPIRATORY: Denies cough. GASTROINTESTINAL: Denies abdominal pain. Denies diarrhea. Denies constipation. Denies nausea. Denies vomiting. MUSCULOSKELETAL: Denies myalgias. INTEGUMENTARY: Denies pruitis. Denies rash. NEUROLOGIC: Denies numbness. Denies tingling. Denies weakness. PSYCHIATRIC: Denies anxiety. Denies depression. ENDOCRINE: Denies fatigue. Denies weight change. Denies polydipsia. Denies polyurina. GENITOURINARY: Denies burning, hematuria or urgency with micturation. HEMATOLOGIC: Denies history of anemia. Denies bleeding. Blood pressure 184/84 heart rate 88 afebrile maintaining oxygen saturation on nasal cannula GENERAL: This is a 84-year-old male in no apparent distress at the time of my examination. HEENT: Head is atraumatic, normocephalic. Pupils are equal, round. Sclerae anicteric. Conjunctivae are clear. Mucous membranes of the mouth are moist. Neck is supple. There is no jugular venous distention. No carotid bruit is heard. LUNGS: Clear to auscultation no wheezes, rales or rhonchi. No chest wall tenderness is noted on palpation or with deep breathing. HEART: Irregular rate and rhythm with systolic ejection murmur at the left sternal border, no rubs or gallops. S1 and S2 heard. ABDOMEN: Soft, nontender. Bowel sounds are heard. No organomegaly noted. EXTREMITIES: Bilateral 2+ pitting edema and no calf tenderness noted. VASCULAR: Radial and dorsalis pedis pulses palpated, no evidence of clubbing. NEUROLOGIC: Patient is awake, alert and oriented to self. ASSESSMENT Acute systolic heart failure New-onset paroxysmal atrial fibrillation Urosepsis with gross hematuria History of prostate cancer treated with radiation Acute kidney injury, improved History of coronary artery disease status post bypass grafting, exact details unavailable Hypertension Pulmonary hypertension Valvular heart disease History of peripheral vascular disease status post right carotid endarterectomy COPD PLAN Apply telemetry monitoring for 24 hours to assess rate control. Initiate on Lopressor 25 mg twice a day. Increase Lasix to 20 mg IV twice a day. Documented accurate intake and output along with daily weights. Follow renal function and electrolytes in the morning. If creatinine remains stable will initiate on VALERIE inhibitor. Hold on long-term anticoagulation secondary to gross hematuria. Further recommendations to follow. Thank you kindly for this consultation. Nurse Practitioner note has been reviewed, I agree with a documented findings and plan of care. Patient was seen and examined. Past Medical History Past Medical History: Asthma, Coronary Artery Disease (CAD), Cancer, COPD, Hypertension, Osteoarthritis (OA), Prostate Disorder, Respiratory Disorder Additional Past Medical History / Comment(s): PT STATES CABG 10 YEARS AGO. RADIATION THERAPY FOR PROSTATE CA 15 YEARS AGO History of Any Multi-Drug Resistant Organisms: None Reported Past Surgical History: Coronary Bypass/CABG, Heart Catheterization Additional Past Surgical History / Comment(s): right carotid endarectomy Past Anesthesia/Blood Transfusion Reactions: No Reported Reaction Past Psychological History: No Psychological Hx Reported Smoking Status: Former smoker - Past Family History Father Family Medical History: CVA/TIA, Myocardial Infarction ([place]), Osteoarthritis (OA), Prostate Disorder Additional Family Medical History / Comment(s): leukemia Medications and Allergies Home Medications Medication Instructions Recorded Confirmed Type Budesonide-Formot 160-4.5 Mcg 2 puff INHALATION RT-BID 12/27/14 05/18/19 History [Symbicort 160-4.5 Mcg Inhaler] Ipratropium-Albuterol Nebulize 3 ml INHALATION RT-QID 05/20/16 05/18/19 History [Duoneb 0.5 mg-3 mg/3 ml Soln] Aspirin 81 mg PO DAILY 08/15/17 05/18/19 History amLODIPine BESYLATE [Norvasc] 2.5 mg PO DAILY 08/15/17 05/18/19 History Tamsulosin [Flomax] 0.4 mg PO DAILY #30 cap 10/30/17 05/18/19 Rx Allergies Allergy/AdvReac Type Severity Reaction Status Date / Time amoxicillin Allergy Rash/Hives Verified 05/18/19 14:46 Penicillins Allergy Rash/Hives Verified 05/18/19 14:46 Physical Exam Vitals: Vital Signs Temp Pulse Pulse Resp BP Pulse Ox 05/21/19 11:32 88 05/21/19 11:21 84 05/21/19 07:21 88 05/21/19 07:10 86 05/21/19 05:00 98.1 F 91 16 184/84 93 L 05/20/19 21:08 98.6 F 114 H 18 174/91 95 05/20/19 20:27 88 05/20/19 20:20 89 Intake and Output 05/20/19 05/21/1919 22:59 06:59 14:59 Intake Total 200 590 Balance 200 590 Intake: Intake, IV Titration 200 Amount Sodium Chloride 0.9% 1, 200 000 ml @ 50 mls/hr IV . Q20H ÓSCAR Rx#:[id number] Oral 590 Other: Voiding Method Indwelling Catheter Indwelling Catheter Indwelling Catheter Results 05/21/19 06:28 05/21/19 06:28 Cardiac Enzymes 05/21/19 Range/Units 06:28 AST 26 (17-59) U/L CBC 05/21/19 Range/Units 06:28 WBC 9.7 (3.8-10.6) k/uL RBC 4.44 (4.30-5.90) m/uL Hgb 13.0 (13.0-17.5) gm/dL Hct 39.9 (39.0-53.0) % Plt Count 183 (150-450) k/uL Comprehensive Metabolic Panel 05/21/19 Range/Units 06:28 Sodium 141 (137-145) mmol/L Potassium 3.6 (3.5-5.1) mmol/L Chloride 106 (98-107) mmol/L Carbon Dioxide 27 (22-30) mmol/L BUN 19 (9-20) mg/dL Creatinine 0.56 L (0.66-1.25) mg/dL Glucose 94 (74-99) mg/dL Calcium 8.3 L (8.4-10.2) mg/dL AST 26 (17-59) U/L ALT 27 (21-72) U/L Alkaline Phosphatase 76 (38-126) U/L Total Protein 5.3 L (6.3-8.2) g/dL Albumin 2.8 L (3.5-5.0) g/dL Current Medications Generic Name Dose Route Start Last Admin Trade Name Freq PRN Reason Stop Dose Admin Albuterol/Ipratropium 3 ml 05/19/19 16:00 05/21/19 11:21 Duoneb 0.5 Mg-3 Mg/3 Ml Soln INHALATION 3 ml RT-QID ÓSCAR Administration Amlodipine Besylate 2.5 mg 05/20/19 09:00 05/21/19 07:58 Norvasc PO 2.5 mg DAILY ÓSCAR Administration Aspirin 81 mg 05/20/19 09:00 05/21/19 07:58 Aspirin PO 81 mg DAILY ÓSCAR Administration Budesonide/Formoterol Fumarate 2 puff 05/19/19 20:00 05/21/19 07:10 Symbicort 160-4.5 Mcg Inhaler INHALATION 2 puff RT-BID ÓSCAR Administration Ceftriaxone Sodium 1 gm/ 50 mls @ 100 mls/hr 05/19/19 15:00 05/21/19 07:58 Sodium Chloride IVPB 100 mls/hr Q24HR ÓSCAR Administration Metoprolol Tartrate 25 mg 05/21/19 11:45 Lopressor PO BID ÓSCAR Naloxone HCl 0.2 mg 05/18/19 16:09 Narcan IV Q2M PRN Opioid Reversal Tamsulosin HCl 0.4 mg 05/20/19 09:00 05/21/19 07:58 Flomax PO 0.4 mg DAILY ÓSCAR Administration Intake and Output 05/20/19 05/21/19 05/21/19 22:59 06:59 14:59 Intake Total 200 590 Balance 200 590 Intake: Intake, IV Titration 200 Amount Sodium Chloride 0.9% 1, 200 000 ml @ 50 mls/hr IV . Q20H [facility] Rx#:[id number] Oral 590 Other: Voiding Method Indwelling Catheter Indwelling Catheter Indwelling Catheter 05/21/19 06:28 05/21/19 06:28
[2019-05-21] MEDS: METOPROLOL TARTRATE 25 MG TAB PO SCH ×2 (13:22→20:23)
--- NOTE | 2019-05-21 15:46 | PN ---
PROGRESS NOTE Patient is seen for followup for acute kidney injury which was mainly obstructive uropathy. IV fluids were discontinued. He has an indwelling Tomlinson catheter with good urine output. Serum creatinine is down to 0.5 from 4.38 on initial admission. On examination this morning, blood pressure was 184/84, heart rate 91 per minute. He is afebrile. EXAMINATION OF THE HEART: S1 and S2. EXAMINATION OF LUNGS: Bilateral breath sounds are heard. ABDOMEN: Soft, non-tender. Examination of lower extremities shows edema 1+ bilaterally. 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 Labs show sodium of 141, potassium 3.6, chloride 106, BUN 19, serum creatinine 0.56. ASSESSMENT: 1. Acute kidney injury secondary to urine retention and obstructive uropathy, currently resolved. 2. Hypervolemia. Lasix x1 IV. Continue off of IV fluids. Repeat labs in a.m. 3. Hypertension, partly volume-sensitive. Increase Norvasc to 5 mg daily. PLAN: Increase Norvasc. Diurese gently. MMODL / IJN: [id number] /
--- NOTE | 2019-05-21 16:00 | CT ---
EXAMINATION TYPE: CT renal stones wo con DATE OF EXAM: 05/20/2019 COMPARISON: 02/06/2016 INDICATION: Hydronephrosis DLP: 1063 mGycm, Automated exposure control for dose reduction was used. CONTRAST: 0 mL of Isovue 300. Study performed without Oral Contrast TECHNIQUE: Axial images were obtained from above the diaphragm to the pubic rami in the axial plane a t 5 mm thick sections. Reconstructed images are reviewed on the computer in the coronal plane. FINDINGS: Limited CT sections are obtained the lung bases. The lung bases are clear. Coronary artery calcific ation is present. CT ABDOMEN: Liver: 0.8 cm cyst at superior right lobe liver. Spleen: Normal Pancreas: Mildly atrophic Adrenal glands: Some mild lobular appearance of the posterior-lateral limb of the right adrenal gland is present with a thickness of 0.8 cm. Adrenal glands are otherwise unremarkable. Gallbladder: Normal Kidneys: No masses are evident. No hydronephrosis is present. No cysts are present. There is a 0.3 cm calcification in the posterior mid left kidney. Calcification may be within the dependent portion of the prominent extrarenal pelvis on the left and measures 0.4 cm. There is mild left hydroureter. Aorta: Vascular calcification is within the aorta. Inferior vena cava: Normal. CT PELVIS: Loops of bowel within the abdomen and pelvis are normal. Studies performed without oral contrast limiting bowel evaluation. Anterior abdominal wall hernia containing mesenteric fat is within the inf raumbilical region. Appendix: Normal as visualized. Urinary bladder: A 2.7 cm large urinary bladder calcification is present. A second calcification appe ars to lie within the right prostate. There is limitation of the inferior pelvis due to beam hardenin g artifact from a left hip prosthesis. Genitourinary structures: Prostate is mild prominence Osseous structures: No suspicious lytic or sclerotic lesions. IMPRESSIONS: 1. Anterior abdominal wall hernias containing mesenteric fat. 2. Large urinary bladder calcification measuring 2.7 cm. 3. Nonobstructing renal stones in the left kidney. 4. Prominent extrarenal pelvis left kidney
--- NOTE | 2019-05-21 18:58 | PN ---
PROGRESS NOTE DATE OF SERVICE: 05/21/2019 REASON FOR FOLLOWUP: UTI and possible pneumonia. INTERVAL HISTORY: The patient is currently afebrile. He seems to be breathing more comfortably. He did have some cough. No sputum production. No nausea. No vomiting. No abdominal pain or diarrhea. PHYSICAL EXAMINATION: Blood pressure 112/56, pulse of 80, temperature 98.2. He is 98% on room air. General description is an elderly male lying in bed in no distress. RESPIRATORY SYSTEM: Unlabored breathing with decreased breath sounds at the base. No wheeze. HEART: S1, S2. Regular rate and rhythm. ABDOMEN: Soft. No tenderness. LABS/IMAGING: Hemoglobin is 13, white count 9.7, BUN of 19, creatinine 0.56. Chest x-ray this morning shows evidence of a right basilar infiltrate and small effusion. DIAGNOSTIC IMPRESSION AND PLAN: Patient with leukocytosis which is likely multifactorial, possible component of urinary tract infection. The patient did have urinary retention requiring Tomlinson catheter and hematuria. The patient also has a congested cough. The chest x-ray shows evidence of right lower lobe infiltrate, possible pneumonia. Patient is covered with Rocephin and his white count has normalized. To continue with Rocephin and finish therapy with oral antibiotics. Continue with supportive care. MMODL / IJN: [id number] /
[2019-05-21] MEDS: FUROSEMIDE 10 MG/ML 2 ML VIAL IV SCH (20:23)
[2019-05-21] MEDS ORDERED: IBUPROFEN 800 MG TAB PO PRN (20:31)
--- NOTE | 2019-05-21 20:58 | PN ---
PROGRESS NOTE This patient has severe hematuria and will need to go home with the Tomlinson catheter in place. Wait for Cardiology to reassess for systolic CHF. Follow up in the next 24-48 hours. CARDIOVASCULAR: S1, S2. Irregularly irregular rhythm. LUNGS: Clear. GI: Soft. ASSESSMENT: 1. Systolic congestive heart failure. 2. Severe hematuria. 3. Acute kidney injury. 4. Acute tubular necrosis, improving. Follow up in the next 24 to 48 hours for discharge. MMODL / IJN: [id number] /
[2019-05-22] MEDS: IPRATROPIUM-ALBUTEROL 3 ML NEB INHALATION SCH ×4 (08:36→19:26)
[2019-05-22] MEDS: SYMBICORT 160-4.5 MCG INHALER INHALATION SCH ×2 (08:36→19:26)
[2019-05-22 08:47] LABS: African American GFR (CKD) >90 (>60 ml/min/1.73 sqM); Anion Gap 6 mmol/L; Blood Urea Nitrogen 20 mg/dL (9-20); Carbon Dioxide 30 mmol/L (22-30); Chloride 103 mmol/L (98-107); Glucose 87 mg/dL (74-99); Potassium 3.2 mmol/L (3.5-5.1); Sodium 139 mmol/L (137-145)
[2019-05-22] MEDS: METOPROLOL TARTRATE 25 MG TAB PO SCH ×2 (10:15→20:52)
[2019-05-22] MEDS: ASPIRIN 81 MG PO SCH (10:15)
[2019-05-22] MEDS: TAMSULOSIN 0.4 MG CAP.ER.24H PO SCH (10:15)
[2019-05-22] MEDS: FUROSEMIDE 10 MG/ML 2 ML VIAL IV SCH (10:16)
[2019-05-22] MEDS: amLODIPine 2.5 MG TAB PO SCH (10:16)
--- NOTE | 2019-05-22 11:14 | DS ---
DISCHARGE SUMMARY Please add to discharge summary: Urinary tract infection without sepsis. MMODL / IJN: [id number] /
[2019-05-22] MEDS ORDERED: Potassium Replacement Protocol 1 EACH MISC MISCELLANE PRN (11:49)
--- NOTE | 2019-05-22 11:49 | P.PN ---
Subjective This is a pleasantly confused 84-year-old male past medical history significant for coronary artery disease status post bypass grafting, h ypertension, asthma, COPD, peripheral vascular disease status post right carotid endarterectomy and former nicotine dependence. He does not follow with a sales representatives currently. We've been asked to see him in consultation secondary to cardiomyopathy. He presented to the hospital on May 18 with a chief complaint of weakness. Apparently he was brought in by his daughter and she states he has been overly weak for the previous 2-3 days and was unable to get out of bed. He was being treated for outpatient urinary tract infection at the time. EKG at the time of admission reveals atrial fibrillation. There is no documented history of this in the chart previously and the patient himself rachana king having been told he has a-fib. An echocariogram was obtained revealing severely impaired LV systolic function with EF 25-30% with global hypokinesa, moderate-severe MR, moderate-severe TR and severe pulmonary hypertension with RVSP of 69 mmHg. previous echocardiograms 2015 and 2017 have been reviewed and reveal normal LV systolic function. On admission he was found to be in acute renal failure with creatinine over 4. Per the nursing staff he was having significant urinary retention and once the peñaloza catheter was placed he had significant amount of urine output. His creatinine has been improving since admission. Today is 0.56. Chest x-ray obtained this morning reveals a right basilar infiltrate and small pleural effusion with no overt heart failure noted. Laboratory data reviewed, WBC on admission was 17 repeat today 9.7, hemoglobin 13, platelets 183, sodium 141, potassium 3.6, creatinine 0.56 down from 4.38, magnesium on admission 2.1, proBNP on admission 5060, TSH 1.62. Chronic daily cardiac medications at home include aspirin 81 mg daily and 2.5 of Norvasc daily. 05/22/2019 Patient is seen and examined with family at the bedside. His mentation is much better today. He states he has been told in the past he has atrial fibrillation however does not recall ever being placed on long-term anticoagulation. He states overall he seems to be feeling much better and back to his baseline. He denies any active chest discomfort, shortness of breath, dizziness or palpitations. Blood pressure 124/66 with a heart rate of 88 afebrile and maintaining oxygen saturation on room air. Laboratory data reviewed sodium 139, potassium 3.2, creatinine 0.64. Currently maintained on Lasix 20 mg IV twice a day and Lopressor 25 mg twice a day. GENERAL: This is a 84-year-old male in no apparent distress at the time of my examination. HEENT: Head is atraumatic, normocephalic. Pupils are equal, round. Sclerae anicteric. Conjunctivae are clear. Mucous membranes of the mouth are moist. Neck is supple. There is no jugular venous distention. No carotid bruit is heard. LUNGS: Clear to auscultation no wheezes, rales or rhonchi. No chest wall tenderness is noted on palpation or with deep breathing. HEART: Irregular rate and rhythm with systolic ejection murmur at the left sternal border, no rubs or gallops. S1 and S2 heard. EXTREMITIES: Bilateral 2+ pitting edema and no calf tenderness noted. NETO hose in place. ASSESSMENT Acute systolic heart failure New-onset paroxysmal atrial fibrillation Urosepsis with gross hematuria History of prostate cancer treated with radiation Acute kidney injury, improved History of coronary artery disease status post bypass grafting, exact details unavailable Hypertension Pulmonary hypertension Valvular heart disease History of peripheral vascular disease status post right carotid endarterectomy COPD PLAN Transition to oral diuretics, 20 mg PO BID. Initiate on small dose of losartan 25 mg daily and discontinue amlodipine. Repeat renal function in the morning. Nurse Practitioner note has been reviewed, I agree with a documented findings and plan of care. Patient was seen and examined. Objective - Vital Signs Vital signs: Vital Signs Temp 98.1 F 05/22/19 04:58 Pulse 88 05/22/19 08:50 Resp 16 05/22/19 04:58 BP 124/66 05/22/19 04:58 Pulse Ox 94 L 05/22/19 04:58 Intake & Output 05/21/19 05/22/19 05/22/19 18:59 06:59 18:59 Intake Total 590 Output Total 1100 800 Balance -1100 -210 Weight 77.111 kg 79 kg Intake: Oral 590 Output: Urine 1100 800 Uretheral (Peñaloza) 1100 800 Other: Voiding Method Indwelling Catheter Indwelling Catheter - Labs CBC & Chem 7: 05/21/19 06:28 05/22/19 07:20 Labs: Abnormal Lab Results - Last 24 Hours (Table) 05/22/19 Range/Units 07:20 Potassium 3.2 L (3.5-5.1) mmol/L Creatinine 0.64 L (0.66-1.25) mg/dL Calcium 8.0 L (8.4-10.2) mg/dL
[2019-05-22] MEDS: LOSARTAN 25 MG TAB PO SCH (13:22)
[2019-05-22] MEDS: POTASSIUM CHLORIDE ER 20 MEQ TAB.ER PO SCH ×3 (13:23→18:19)
--- NOTE | 2019-05-22 13:51 | PN ---
PROGRESS NOTE The patient is seen for followup for acute kidney injury which was mainly obstructive uropathy. His renal function has improved. Patient has an indwelling Tomlinson catheter. He was given a dose of IV Lasix yesterday. No significant complaints today. PHYSICAL EXAMINATION: On examination, blood pressure was 124/66, heart rate of 88 per minute. Patient is afebrile. EXAMINATION OF THE HEART: S1, S2. EXAMINATION OF THE LUNGS: Bilateral breath sounds are heard. Abdomen is soft, nontender. Examination of lower extremities shows edema 1+ bilaterally. LABS: Labs show sodium 141, potassium 3.6 from yesterday. ASSESSMENT: 1. Acute kidney injury, obstructive uropathy, currently resolved with indwelling Tomlinson catheter. 2. History of benign prostatic hypertrophy, maintained on Flomax. 3. Hypokalemia associated with recent diuresis, we will replace. 4. Mild volume overload, status post IV Lasix yesterday. 5. Hypertension, blood pressure is much improved. The patient has been started on Cozaar which is okay. However, since his pressure is on the lower side, we need to monitor his renal function closely. MMODL / IJN: [id number] /
--- NOTE | 2019-05-22 16:57 | PN ---
PROGRESS NOTE SUBJECTIVE: This is a white male, hematuria, systolic CHF. Cardiology is adjusting cardiac medications today. Possible discharge in the next 24 to 48 hours. CARDIOVASCULAR: S1, S2. LUNGS: Clear. GI: Soft. : Large amount of blood in the urine Tomlinson . ASSESSMENT: 1. Hematuria. 2. Sepsis. 3. Atrial fibrillation. 4. Acute tubular necrosis. 5. Urinary tract infection. Continue with possible switch Lasix to oral, antibiotics to oral, treat for right lower lobe pneumonia, UTI, hematuria, systolic CHF. Please see further orders. MMODL / IJN: [id number] /
[2019-05-22] MEDS: FUROSEMIDE 20 MG TAB PO SCH (17:28)
[2019-05-23 05:23] VITALS: BP 123/68
--- NOTE | 2019-05-23 07:07 | P.PN ---
Subjective This is a pleasantly confused 84-year-old male past medical history significant for coronary artery disease status post bypass grafting, h ypertension, asthma, COPD, peripheral vascular disease status post right carotid endarterectomy and former nicotine dependence. 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 We've been asked to see him in consultation secondary to cardiomyopathy. He presented to the hospital on May 18 with a chief complaint of weakness. Apparently he was brought in by his daughter and she states he has been overly weak for the previous 2-3 days and was unable to get out of bed. He was being treated for outpatient urinary tract infection at the time. EKG at the time of admission reveals atrial fibrillation. There is no documented history of this in the chart previously and the patient himself rachana king having been told he has a-fib. An echocariogram was obtained revealing severely impaired LV systolic function with EF 25-30% with global hypokinesa, moderate-severe MR, moderate-severe TR and severe pulmonary hypertension with RVSP of 69 mmHg. previous echocardiograms 2015 and 2017 have been reviewed and reveal normal LV systolic function. On admission he was found to be in acute renal failure with creatinine over 4. Per the nursing staff he was having significant urinary retention and once the peñaloza catheter was placed he had significant amount of urine output. His creatinine has been improving since admission. Today is 0.56. Chest x-ray obtained this morning reveals a right basilar infiltrate and small pleural effusion with no overt heart failure noted. Laboratory data reviewed, WBC on admission was 17 repeat today 9.7, hemoglobin 13, platelets 183, sodium 141, potassium 3.6, creatinine 0.56 down from 4.38, magnesium on admission 2.1, proBNP on admission 5060, TSH 1.62. Chronic daily cardiac medications at home include aspirin 81 mg daily and 2.5 of Norvasc daily. 05/22/2019 Patient is seen and examined with family at the bedside. His mentation is much better today. He states he has been told in the past he has atrial fibrillation however does not recall ever being placed on long-term anticoagulation. He states overall he seems to be feeling much better and back to his baseline. He denies any active chest discomfort, shortness of breath, dizziness or palpitations. Blood pressure 124/66 with a heart rate of 88 afebrile and maintaining oxygen saturation on room air. Laboratory data reviewed sodium 139, potassium 3.2, creatinine 0.64. Currently maintained on Lasix 20 mg IV twice a day and Lopressor 25 mg twice a day. 05/23/2019 Pt is seen and examined sleeping. He denies any shortness of breath, dizziness, chest pain, nausea or palpitations. Blood pressure has been consistently in the 120's systolic with no hypotension noted. Labs are pending for today. GENERAL: This is a 84-year-old male in no apparent distress at the time of my examination. HEENT: Head is atraumatic, normocephalic. Pupils are equal, round. Sclerae anicteric. Conjunctivae are clear. Mucous membranes of the mouth are moist. Neck is supple. There is no jugular venous distention. No carotid bruit is heard. LUNGS: Clear to auscultation no wheezes, rales or rhonchi. No chest wall tenderness is noted on palpation or with deep breathing. HEART: Irregular rate and rhythm with systolic ejection murmur at the left sternal border, no rubs or gallops. S1 and S2 heard. EXTREMITIES: Bilateral 1+ pitting edema and no calf tenderness noted. ASSESSMENT Acute systolic heart failure New-onset paroxysmal atrial fibrillation Urosepsis with gross hematuria History of prostate cancer treated with radiation Acute kidney injury, improved History of coronary artery disease status post bypass grafting, exact details unavailable Hypertension Pulmonary hypertension Valvular heart disease History of peripheral vascular disease status post right carotid endarterectomy COPD PLAN Stable for discharge from a cardiac perspective. Home meds to include losartan 25 mg daily, lopressor 25 mg BID, potassium supplementation and lasix 20 mg BID. Discontinue amlodipine. Advised him to take his blood pressures daily and keep a record to bring to the office for evaluation. Wear gilberto hose daily and elevate fee at night while in bed. Keep feet elevated as much as possible while sitting. Follow up with Dr. Valera in the office in 2 weeks. Nurse Practitioner note has been reviewed, I agree with a documented findings and plan of care. Patient was seen and examined. Objective - Vital Signs Vital signs: Vital Signs Temp 98.8 F 05/23/19 05:00 Pulse 82 05/23/19 05:00 Resp 18 05/23/19 05:00 BP 123/68 05/23/19 05:00 Pulse Ox 93 L 05/23/19 05:00 Intake & Output 05/22/19 05/23/19 05/23/19 18:59 06:59 18:59 Output Total 1200 1000 Balance -1200 -1000 Weight 73.5 kg Output: Urine 1200 1000 Uretheral (Peñaloza) 1200 Other: Voiding Method Indwelling Catheter Indwelling Catheter - Labs CBC & Chem 7: 05/21/19 06:28 05/23/19 06:15 Labs: Abnormal Lab Results - Last 24 Hours (Table) 05/22/19 Range/Units 07:20 Potassium 3.2 L (3.5-5.1) mmol/L Creatinine 0.64 L (0.66-1.25) mg/dL Calcium 8.0 L (8.4-10.2) mg/dL
[2019-05-23 07:30] LABS: African American GFR (CKD) >90 (>60 ml/min/1.73 sqM); Anion Gap 4 mmol/L; Blood Urea Nitrogen 17 mg/dL (9-20); Calcium 7.7 mg/dL (8.4-10.2); Carbon Dioxide 37 mmol/L (22-30); Chloride 97 mmol/L (98-107); Glucose 86 mg/dL (74-99); Sodium 138 mmol/L (137-145)
[2019-05-23] MEDS: SYMBICORT 160-4.5 MCG INHALER INHALATION SCH (07:32)
[2019-05-23] MEDS: IPRATROPIUM-ALBUTEROL 3 ML NEB INHALATION SCH ×3 (07:33→15:44)
[2019-05-23] MEDS ORDERED: Potassium Replacement Protocol 1 EACH MISC MISCELLANE PRN (08:22)
[2019-05-23] MEDS: ASPIRIN 81 MG PO SCH (09:44)
[2019-05-23] MEDS: TAMSULOSIN 0.4 MG CAP.ER.24H PO SCH (09:44)
[2019-05-23] MEDS: METOPROLOL TARTRATE 25 MG TAB PO SCH (09:44)
[2019-05-23] MEDS: LOSARTAN 25 MG TAB PO SCH (09:44)
[2019-05-23] MEDS: FUROSEMIDE 20 MG TAB PO SCH (09:44)
[2019-05-23] MEDS: POTASSIUM CHLORIDE ER 20 MEQ TAB.ER PO SCH ×3 (09:47→16:05)
[2019-05-23 11:45] VITALS: RESP 16; TEMP 97.1
[2019-05-23 15:46] VITALS: PULSE 94
--- NOTE | 2019-05-23 22:25 | DS ---
DISCHARGE SUMMARY DATE OF ADMISSION: 05/18/2019. DATE OF DISCHARGE: 05/23/2019. CONDITION: Stable. PROGNOSIS: Guarded. Ambulate as tolerated. DISCHARGE DIAGNOSES: 1. Severe hematuria due to ureteral renal lithiasis. 2. Acute renal stone with hematuria. 3. Urinary tract infection. 4. Acute renal injury. 5. Acute tubular necrosis secondary to renal stone, dehydration. 6. Sepsis. 7. Atrial fibrillation. 8. Hematuria. 9. Systolic congestive heart failure. The patient's medications were adjusted by Cardiology. He is going to go home with Tomlinson catheter. Hematuria mostly resolved on discharge. His renal failure went from 4.4 down to 0.75 on discharge. Cardiology placed him on Cozaar 25 mg b.i.d., Lasix 20 mg b.i.d., Metoprolol 25 b.i.d., Cipro 250 b.i.d. for 10 days for hematuria. Follow up in the next 24 to 48 hours. MMODL / IJN: [id number] /
--- NOTE | 2019-05-24 10:18 | CDI ---
Documentation Clarification Form Date: 05/24/2019 9:41:34 AM From: Namrata Castelan RN, CCDS Admit Date: 05/18/2019 4:07:00 PM Patient Name: Holland Garcia Visit Number: [id number] Discharge Date: 05/23/2019 2:55:00 PM ATTENTION: The Clinical Documentation Specialists (CDI) and [facility] Coding Staff appreciate your assistance in clarifying documentation. Please respond to the clarification below the line at the bottom and electronically sign. The CDI & [facility] Coding staff will review the response and follow-up if needed. Please note: Queries are made part of the Legal Health Record. If you have any questions, please contact the author of this message via ITS. Dr. Edd Armstrong Conflicting documentation has been found in the medical record and further clarification is needed. Addendum to Discharge summary: Urinary tract infection without sepsis 04/23/19 Discharge Summary diagnosis: #3 Urinary tract infection, #6 Sepsis, History/Risk Factors: Urinary tract infection (with outpatient treatment), Prostate Ca (15 years ago); COPD, Hypertension Clinical Indicators: 84-year-old male with prior treatment for urinary tract infection present with complaints of weakness, cough, congestion ongoing for past 2-3 days. Vital Signs on admission: 145/89 98 22 98.7 98 % RA WBC 17.0, Creatinine 4.38, BUN 84, BNP 5060, and Lactic Acid: UA 62 WBC, Large Leukocyte esterase, Urine culture: no growth after 18 hours Treatment: Rocephin IV, Iv Fluids @ 50 msl hr Flomax Po Tomlinson catheter ID Consult (Dr. Rader): Patient with leukocytosis which is likely multifactorial, possible component of urinary tract infection. The patient did have urinary retention requiring Tomlinson catheter and hematuria. The chest x-ray shows evidence of right lower lobe infiltrate, possible pneumonia. Patient I covered with Rocephin. In your opinion, what is the most clinically appropriate diagnosis for this patient? Other explanation of clinical findings Unable to determine (no explanation for clinical findings) (Last Revision: November 2017) MTDD
--- NOTE | 2019-06-09 13:06 | DS ---
DISCHARGE SUMMARY Please add to the discharge summary: Urinary tract infection with no sepsis. Right lower lobe pneumonia, community-acquired pneumonia. Acute tubular necrosis, acute renal insufficiency secondary to benign prostatic hypertrophy versus ureteral stone. Severe secondary to ureteral stone. Please see further orders. MMODL / IJN: [id number] /
--- NOTE | 2019-06-11 11:20 | CDI ---
Documentation Clarification Form Date: 05/28/2019 5:58:00 AM From: Jennifer Gomez Phone: If you have a question about this query, please contact Nabila [employer] at [phone] between 8am and 5pm Admit Date: 05/18/2019 4:07:00 PM Patient Name: Holland Garcia Visit Number: [id number] Discharge Date: 05/23/2019 2:55:00 PM ATTENTION: The Clinical Documentation Specialists (CDI) and [facility] Coding Staff appreciate your assistance in clarifying documentation. Please respond to the clarification below the line at the bottom and electronically sign. The CDI & [facility] Coding staff will review the response and follow-up if needed. Please note: Queries are made part of the Legal Health Record. If you have any questions, please contact the author of this message via ITS. Dr. Edd Armstrong Conflicting documentation has been found in the medical record: H and P documents diastolic CHF. Cardiology documents Acute systolic CHF and your PN's document systolic CHF. Please clarify if CHF is diastolic or systolic or both. History/Risk Factors: HTN, a fib, cardiomyopathy, MR, TR, CAD, CABG family history Clinical Indicators: BNP 5060 Treatment: IV Lasix 20 mg twice a day In your opinion, what is the most clinically appropriate diagnosis for this patient? Acute systolic CHF Acute diastolic CHF Acute diastolic and systolic CHF Other explanation of clinical findings Unable to determine (no explanation for clinical findings) MTDD
--- NOTE | 2019-06-20 21:59 | DS ---
DISCHARGE SUMMARY ADDENDUM: Please add to the discharge summary: IMPRESSION: Please add systolic and diastolic heart failure combined. MMODL / IJN: [id number] /
== END 2019-05-23 14:55 | disposition home health service (06) | DRG 689 ==
LOC: EC 13:45 → 3NMEDONC 16:07
PROVIDERS: ADMIT Family Medicine; ATTEND Family Medicine
DX: N39.0 Urinary tract infection, site not specified (principal); N17.0 Acute kidney failure with tubular necrosis; I50.41 Acute combined systolic (congestive) and diastolic (congestive) heart failure; I42.9 Cardiomyopathy, unspecified; N13.8 Other obstructive and reflux uropathy; E86.0 Dehydration; E87.6 Hypokalemia; T50.2X5A Adverse effect of carbonic-anhydrase inhibitors, benzothiadiazides and other diuretics, initial encounter; I11.0 Hypertensive heart disease with heart failure; I25.10 Atherosclerotic heart disease of native coronary artery without angina pectoris; I27.20 Pulmonary hypertension, unspecified; I73.9 Peripheral vascular disease, unspecified; J44.9 Chronic obstructive pulmonary disease, unspecified; N20.0 Calculus of kidney; N21.0 Calculus in bladder; N40.1 Benign prostatic hyperplasia with lower urinary tract symptoms; R31.0 Gross hematuria; Z79.51 Long term (current) use of inhaled steroids; Z79.82 Long term (current) use of aspirin; Z79.899 Other long term (current) drug therapy; Z80.6 Family history of leukemia; Z82.49 Family history of ischemic heart disease and other diseases of the circulatory system; Z85.46 Personal history of malignant neoplasm of prostate; Z87.440 Personal history of urinary (tract) infections; Z87.891 Personal history of nicotine dependence; Z92.3 Personal history of irradiation; Z95.1 Presence of aortocoronary bypass graft; I08.1 Rheumatic disorders of both mitral and tricuspid valves; R33.9 Retention of urine, unspecified; Z88.0 Allergy status to penicillin; I48.0 Paroxysmal atrial fibrillation
CPT/HCPCS: 36415; 71045; 71046; 74150; 76770; 80048; 80053; 81001; 83605; 83735; 83880; 84443; 84484; 85025; 85610; 85730; 87086; 93005; 93306; 94640; 94760; 96360; 96361; 99285

== ENCOUNTER → 2019-06-04 | Outpatient (CLI) | payer MEDICARE ==
[2019-06-04 13:34] LABS: African American GFR (CKD) >90 (>60 ml/min/1.73 sqM); Anion Gap 9 mmol/L; Basophils # (A) 0.1 k/uL (0-0.2); Basophils % (A) 2 %; Blood Urea Nitrogen 22 mg/dL (9-20); Calcium 9.5 mg/dL (8.4-10.2); Carbon Dioxide 30 mmol/L (22-30); Chloride 99 mmol/L (98-107); Eosinophils # (A) 0.2 k/uL (0-0.7); Eosinophils % (A) 3 %; Glucose 89 mg/dL (74-99); HCT 39.9 % (39.0-53.0); Lymphocytes # (A) 1.8 k/uL (1.0-4.8); Lymphocytes % (A) 21 %; MCHC 32.5 g/dL (31.0-37.0); MCV 89.2 fL (80.0-100.0); Mean Platelet Volume 5.7; Monocytes # (A) 0.6 k/uL (0-1.0); Monocytes % (A) 8 %; Neutrophils # (A) 5.4 k/uL (1.3-7.7); Neutrophils % (A) 65 %; Potassium 4.5 mmol/L (3.5-5.1); RBC 4.48 m/uL (4.30-5.90); RDW 14.1 % (11.5-15.5); Sodium 138 mmol/L (137-145); WBC 8.4 k/uL (3.8-10.6)
[2019-06-04 13:41] LABS: Platelet Count 476 k/uL (150-450)
== END | disposition home or self-care (01) ==
LOC: LABPAT 12:14
PROVIDERS: ATTEND Urology
DX: Z01.812 Encounter for preprocedural laboratory examination (principal); N21.0 Calculus in bladder; R31.0 Gross hematuria
CPT/HCPCS: 36415; 80048; 85025; 87086

== ENCOUNTER 2019-06-10 08:49 | Day surgery (SDC) | payer MEDICARE ==
--- NOTE | 2019-06-02 16:04 | P.GSHP ---
History of Present Illness H&P Date: 06/02/19 Chief Complaint: Hematuria The patient is an 84-year-old male with a history of prostate cancer, treated with IM RT and androgen deprivation therapy. He underwent cystolithotripsy last year. He recently was noted to have hematuria, and a Tomlinson catheter was placed for urinary retention. A computed tomography scan showed a 2.7 cm bladder calculus, as well as 2 left renal calculi measuring 3-4 mm each. The Tomlinson catheter remains in place. - Constitutional Constitutional: Reports weakness, Denies chills, Denies fever - Genitourinary (Female) Genitourinary: Reports hematuria Past Medical History Past Medical History: Asthma, Coronary Artery Disease (CAD), Cancer, COPD, Hypertension, Osteoarthritis (OA), Prostate Disorder, Respiratory Disorder Additional Past Medical History / Comment(s): PT STATES CABG 10 YEARS AGO. RADIATION THERAPY FOR PROSTATE CA 15 YEARS AGO History of Any Multi-Drug Resistant Organisms: None Reported Past Surgical History: Coronary Bypass/CABG, Heart Catheterization Additional Past Surgical History / Comment(s): right carotid endarectomy Past Anesthesia/Blood Transfusion Reactions: No Reported Reaction Past Psychological History: No Psychological Hx Reported Smoking Status: Former smoker - Past Family History Father Family Medical History: CVA/TIA, Myocardial Infarction (MA), Osteoarthritis (OA), Prostate Disorder Additional Family Medical History / Comment(s): leukemia Medications and Allergies Home Medications Medication Instructions Recorded Confirmed Type Budesonide-Formot 160-4.5 Mcg 2 puff INHALATION RT-BID 12/27/14 05/18/19 History [Symbicort 160-4.5 Mcg Inhaler] Ipratropium-Albuterol Nebulize 3 ml INHALATION RT-QID 05/20/16 05/18/19 History [Duoneb 0.5 mg-3 mg/3 ml Soln] Aspirin 81 mg PO DAILY 08/15/17 05/18/19 History Tamsulosin [Flomax] 0.4 mg PO DAILY #30 cap 10/30/17 05/18/19 Rx Ibuprofen [Motrin] 800 mg PO TID PRN tab 05/22/19 Rx Metoprolol Tartrate [Lopressor] 25 mg PO BID tab 05/22/19 Rx Furosemide [Lasix] 20 mg PO BID@0900,1600 #180 tab 05/23/19 Rx Losartan [Cozaar] 25 mg PO DAILY #90 tab 05/23/19 Rx Potassium Chloride [K-Tab ER] 20 meq PO BID #180 tablet.er 05/23/19 Rx Allergies Allergy/AdvReac Type Severity Reaction Status Date / Time amoxicillin Allergy Rash/Hives Verified 05/18/19 14:46 Penicillins Allergy Rash/Hives Verified 05/18/19 14:46 Surgical - Exam - General well developed, well nourished, no distress - Respiratory normal respiratory effort, clear to auscultation - Cardiovascular Rhythm: regular Abnormal Heart Sounds: no systolic murmur, no diastolic murmur, no rub, no S3 Gallop, no S4 Gallop, no click, no other - Psychiatric oriented to time, oriented to person, oriented to place, speech is normal, memory intact Results - Imaging CT scan - pelvis: report reviewed, image reviewed Assessment and Plan (1) Bladder calculus Status: Acute Code(s): N21.0 - CALCULUS IN BLADDER SNOMED Code(s): 42526669 Plan: Cystoscopy with cystolithotripsy. The procedures well understood by the patient, having undergone the procedure one year ago. He and his family understand the risks to include anesthesia, bleeding, infection, postoperative urinary retention, and bladder perforation.
[2019-06-07 14:32] VITALS: BMI 22.8
[~2019-06-10 08:49] MED LIST changes: -CLINDAMYCIN 900 MG in DEXTROSE 5% IN WATER 50 ML IVPB ONE; +DEXAMETHASONE SOD PHOSPHATE 10 MG/ML 1 ML VIAL IV ONE; +HYDROmorphone 0.5 MG/0.5 ML SYRINGE IVP PRN; +LACTATED RINGERS 1,000 ML IV SCH; +LEVOFLOXACIN 500MG-D5W PMX 500 MG in DEXTROSE/WATER 1 100ML.BAG IVPB ONE; +LIDOCAINE 1% 20 ML VIAL (10MG/ML) FOR IV START INTRADERMA PRN; -MORPHINE SULFATE 4 MG/ML SYRINGE IV PRN; +fentaNYL (PF) 50 MCG/ML 2 ML AMP IV PRN
[2019-06-10] MEDS ORDERED: PROPOFOL 10 MG/ML 20 ML VIAL IV ONE (11:54)
[2019-06-10] MEDS ORDERED: SUCCINYLCHOLINE CHLORIDE 100 MG/5 ML SYR IV ONE (11:54)
[2019-06-10] MEDS ORDERED: PHENYLEPHRINE-0.9% NACL SYG 1 MG/10 ML SYRINGE ONE (11:54)
[2019-06-10] MEDS ORDERED: fentaNYL (PF) 50 MCG/ML 2 ML AMP ONE (11:54)
[2019-06-10] MEDS ORDERED: MIDAZOLAM 2 MG/2 ML VIAL ONE (11:54)
[2019-06-10] MEDS ORDERED: ALBUTEROL INHALER 60 PUFF/8 GM INHALER INHALATION ONE (11:54)
[2019-06-10] MEDS ORDERED: LACTATED RINGERS 1,000 ML IV ONE (12:28)
--- NOTE | 2019-06-10 13:12 | P.OP ---
Date of Procedure: 06/10/19 Preoperative Diagnosis: Bladder calculus Postoperative Diagnosis: Bladder calculi Procedure(s) Performed: Cystoscopy with cystolithotripsy Anesthesia: SANGEETA Surgeon: Cayden Gonsales Estimated Blood Loss (ml): 0 IV fluids (ml): 500 Pathology: other (Bladder calculus fragments) Condition: stable Disposition: PACU Indications for Procedure: The patient is an 84-year-old male with a history of prostate cancer, treated with IMRT and androgen deprivation therapy. He underwent cystolithotripsy last year. He recently was noted to have hematuria, and a Tomlinson catheter was placed for urinary retention. A computed tomography scan showed a 2.7 cm bladder calculus, as well as 2 left renal calculi measuring 3-4 mm each. The Tomlinson catheter remains in place. Operative Findings: 2 bladder calculi, the largest of which measured 2-3 cm. An area of necrosis is seen on the left lateral bladder wall, just cephalad to the vesical neck. Description of Procedure: The patient was taken to the operating room and placed in the dorsal lithotomy position, with legs supported in Gerardo stirrups. The external genitalia was prepped and draped sterilely. The 30 lens was used to introduce the 22-Irish Stortz cystoscopic sheath through the urethra and into the bladder under direct vision. The urethra appeared normal. The prostate showed no evidence of obstruction. The bladder was examined in its entirety. There was evidence of catheter cystitis, and the ureteral orifices were not identified with certainty. There were several small diverticuli. A total of 2 calculi were seen, the largest of which measured 2-3 cm in diameter. No tumors were seen. Using the 550 micron Holmium laser probe, lithotripsy was performed. Lithotripsy was continued until all calculus fragments could be removed using the [employer] evacuator. An area of necrosis was seen on the left lateral bladder wall, just cephalad to the vesical neck, and some calcifications were adherent to this. These calcifications were treated with lithotripsy, allowing them to be removed from the bladder wall. Once this was completed, the bladder was inspected. There was no active bleeding, and no evidence of bladder perforation. A 16-Fantasma [facility] Tomlinson catheter was placed. The return was essentially clear. The patient tolerated the procedure well was taken to the recovery room in stable condition.
[2019-06-10 13:21] VITALS: TEMP 96.8
[2019-06-10 14:02] VITALS: RESP 16
[2019-06-10 14:25] VITALS: BP 134/81; PULSE 74
== END 2019-06-10 15:05 | disposition home or self-care (01) ==
LOC: OR 08:49
PROVIDERS: ATTEND Urology
DX: N21.0 Calculus in bladder (principal); N32.89 Other specified disorders of bladder; I25.10 Atherosclerotic heart disease of native coronary artery without angina pectoris; E78.5 Hyperlipidemia, unspecified; I48.11 Longstanding persistent atrial fibrillation; I34.0 Nonrheumatic mitral (valve) insufficiency; J44.9 Chronic obstructive pulmonary disease, unspecified; M19.90 Unspecified osteoarthritis, unspecified site; I11.0 Hypertensive heart disease with heart failure; I50.22 Chronic systolic (congestive) heart failure; I73.9 Peripheral vascular disease, unspecified; Z87.891 Personal history of nicotine dependence; Z88.0 Allergy status to penicillin; Z86.69 Personal history of other diseases of the nervous system and sense organs; Z79.82 Long term (current) use of aspirin; Z79.899 Other long term (current) drug therapy; Z79.51 Long term (current) use of inhaled steroids; Z95.1 Presence of aortocoronary bypass graft; Z99.3 Dependence on wheelchair; Z85.46 Personal history of malignant neoplasm of prostate; Z92.3 Personal history of irradiation; Z82.49 Family history of ischemic heart disease and other diseases of the circulatory system; Z80.6 Family history of leukemia; Z82.69 Family history of other diseases of the musculoskeletal system and connective tissue; Z84.2 Family history of other diseases of the genitourinary system
CPT/HCPCS: 82365; 52318; J2250; J1100; J2405; J1956; J3010; J2370; J0330; J2704

== ENCOUNTER 2019-10-16 22:39 | Inpatient (IN) | payer MEDICARE ==
--- NOTE | 2019-10-16 23:03 | ED ---
General Adult HPI - General Chief complaint: Weakness Stated complaint: Urinary Retention Time Seen by Provider: 10/16/19 22:40 Source: patient, family, EMS Mode of arrival: EMS Limitations: no limitations - History of Present Illness Initial comments: Patient presents to the ED by ambulance for evaluation with his daughter and granddaughter at bedside. Per daughter, she changed the patient's diaper at about 1 PM this afternoon, and she states that he has not had a wet diaper since then. She states that the patient has a history of urinary retention for which he has required catheter placement in the past. She states that the patient has also had dark and foul-smelling urine today. She states that the patient has a history of bladder stones. She also states that the patient has been weaker than usual today. She states that the patient is at his baseline mental status. Patient admits to feeling somewhat generally weak, but he denies having any other symptoms or complaints. Patient denies having any pain, fever or chills, headache, focal neuro deficit, chest pain, dyspnea, cough or cold symptoms, palpitations, dizziness, abdominal pain, back or flank pain, nausea/vomiting/diarrhea, dysuria or urinary symptoms, penile pain, or any other symptoms or complaints. - Related Data Home Medications Medication Instructions Recorded Confirmed Budesonide-Formot 160-4.5 Mcg 2 puff INHALATION RT-BID 12/27/14 06/10/19 [Symbicort 160-4.5 Mcg Inhaler] Ipratropium-Albuterol Nebulize 3 ml INHALATION RT-QID 05/20/16 06/10/19 [Duoneb 0.5 mg-3 mg/3 ml Soln] Aspirin 81 mg PO DAILY 08/15/17 06/10/19 Furosemide [Lasix] 20 mg PO BID 06/08/19 06/10/19 Lisinopril [Zestril] 5 mg PO HS 06/08/19 06/10/19 Previous Rx's Medication Instructions Recorded Tamsulosin [Flomax] 0.4 mg PO DAILY #30 cap 10/30/17 Ibuprofen [Motrin] 800 mg PO TID PRN tab 05/22/19 Metoprolol Tartrate [Lopressor] 25 mg PO BID tab 05/22/19 Potassium Chloride [K-Tab ER] 20 meq PO BID #180 tablet.er 05/23/19 Allergies Allergy/AdvReac Type Severity Reaction Status Date / Time amoxicillin Allergy Rash/Hives Verified 10/16/19 22:53 Penicillins Allergy Rash/Hives Verified 10/16/19 22:53 Review of Systems ROS Statement: Those systems with pertinent positive or pertinent negative responses have been documented in the HPI. ROS Other: All systems not noted in ROS Statement are negative. 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, heart cath prior to CABG-none since Past Anesthesia/Blood Transfusion Reactions: No Reported Reaction Past Psychological History: No Psychological Hx Reported Smoking Status: Former smoker Past Alcohol Use History: None Reported Past Drug Use History: None Reported - Past Family History Father Family Medical History: Cancer Additional Family Medical History / Comment(s): leukemia General Exam Limitations: no limitations General appearance: alert, in no apparent distress Head exam: Present: atraumatic, normocephalic Eye exam: Present: normal appearance, PERRL, EOMI ENT exam: Present: mucous membranes moist Neck exam: Present: other (Trachea is in midline). Absent: tenderness, meningismus Respiratory exam: Present: normal lung sounds bilaterally. Absent: respiratory distress, wheezes, rales, rhonchi Cardiovascular Exam: Present: regular rate, irregular rhythm, normal heart sounds, other (Normal radial pulses bilaterally) GI/Abdominal exam: Present: soft. Absent: distended, tenderness, guarding Rectal exam: Present: normal rectal tone, other (Brown stool). Absent: black stool, bloody stool, tenderness exam: Present: normal inspection. Absent: testicular tenderness, scrotal swelling, circumcision Extremities exam: Absent: tenderness, pedal edema, calf tenderness Back exam: Absent: CVA tenderness (R), CVA tenderness (L) Neurological exam: Present: alert, other (Patient is oriented to person and place, but not to time). Absent: motor sensory deficit Psychiatric exam: Present: normal affect, normal mood Skin exam: Present: warm, dry, intact, normal color Course Vital Signs 10/16/19 10/17/19 22:43 00:05 Temperature 97.9 F Pulse Rate 63 71 Respiratory 18 18 Rate Blood Pressure 130/65 135/74 O2 Sat by Pulse 99 96 Oximetry - Reevaluation(s) Reevaluation #1: 10/17/19 00:56 Patient denies development of any new symptoms while in the ED. Patient remains alert and breathing comfortably. Patient now has a Tomlinson catheter in place with only about 100 mL of yellow urine output so far. Patient and family are aware of the patient's test results, and they all agree with hospital admission at this time. 10/17/19 01:18 Case, H&P, test results and ED management were discussed with Dr. Edd Armstrong. He accepts hospital admission. He has no further recommendations at this time. EKG Findings - EKG Comments: EKG Findings:: Atrial fibrillation, ventricular rate of 63 bpm, normal QRS interval, normal QT interval, normal axis, no ST or T-wave abnormality Medical Decision Making - Medical Decision Making Patient is noted to have a UTI, mild hyponatremia and anemia. Patient's stool guaiac test is positive, although his stool was brown in appearance. Patient is hemodynamically stable and afebrile. I do not suspect that the patient has a significant or rapid GI bleed. I also do not think that the patient is septic. However given these problems, I think that it would be best for the patient to be admitted to the hospital for further evaluation and treatment. Patient's family agrees. Dr. Edd Armstrong has accepted hospital admission. Patient was given IV antibiotics and IV fluids in the ED. - Lab Data Result diagrams: 10/16/19 22:50 10/16/19 22:50 Lab Results 10/16/19 10/16/19 10/16/19 Range/Units 22:50 22:50 22:50 WBC 8.4 (3.8-10.6) k/uL RBC 3.57 L (4.30-5.90) m/uL Hgb 9.2 L (13.0-17.5) gm/dL Hct 29.3 L (39.0-53.0) % MCV 82.2 (80.0-100.0) fL MCH 25.7 (25.0-35.0) pg MCHC 31.3 (31.0-37.0) g/dL RDW 14.4 (11.5-15.5) % Plt Count 318 (150-450) k/uL Neutrophils % 62 % Lymphocytes % 20 % Monocytes % 9 % Eosinophils % 5 % Basophils % 1 % Neutrophils # 5.2 (1.3-7.7) k/uL Lymphocytes # 1.7 (1.0-4.8) k/uL Monocytes # 0.8 (0-1.0) k/uL Eosinophils # 0.4 (0-0.7) k/uL Basophils # 0.1 (0-0.2) k/uL Hypochromasia Slight Poikilocytosis Slight PT 9.8 (9.0-12.0) sec INR 0.9 (<1.2) APTT 24.1 (22.0-30.0) sec Sodium 128 L (137-145) mmol/L Potassium 4.4 (3.5-5.1) mmol/L Chloride 95 L (98-107) mmol/L Carbon Dioxide 26 (22-30) mmol/L Anion Gap 7 mmol/L BUN 23 H (9-20) mg/dL Creatinine 0.60 L (0.66-1.25) mg/dL Est GFR (CKD-EPI)AfAm >90 (>60 ml/min/1.73 sqM) Est GFR (CKD-EPI)NonAf >90 (>60 ml/min/1.73 sqM) Glucose 95 (74-99) mg/dL Plasma Lactic Acid Asif (0.7-2.0) mmol/L Calcium 9.0 (8.4-10.2) mg/dL Magnesium (1.6-2.3) mg/dL Total Bilirubin 0.3 (0.2-1.3) mg/dL AST 26 (17-59) U/L ALT 14 (4-49) U/L Alkaline Phosphatase 78 (38-126) U/L Troponin I (0.000-0.034) ng/mL Total Protein 6.1 L (6.3-8.2) g/dL Albumin 3.6 (3.5-5.0) g/dL Urine Color Urine Appearance (Clear) Urine pH (5.0-8.0) Ur Specific Mustang (1.001-1.035) Urine Protein (Negative) Urine Glucose (UA) (Negative) Urine Ketones (Negative) Urine Blood (Negative) Urine Nitrite (Negative) Urine Bilirubin (Negative) Urine Urobilinogen (<2.0) mg/dL Ur Leukocyte Esterase (Negative) Urine RBC (0-5) /hpf Urine WBC (0-5) /hpf Ur Squamous Epith Cells (0-4) /hpf Urine Mucus (None) /hpf Stool Occult Blood (Negative) 10/16/19 10/16/19 10/16/19 Range/Units 22:50 22:50 22:50 WBC (3.8-10.6) k/uL RBC (4.30-5.90) m/uL Hgb (13.0-17.5) gm/dL Hct (39.0-53.0) % MCV (80.0-100.0) fL MCH (25.0-35.0) pg MCHC (31.0-37.0) g/dL RDW (11.5-15.5) % Plt Count (150-450) k/uL Neutrophils % % Lymphocytes % % Monocytes % % Eosinophils % % Basophils % % Neutrophils # (1.3-7.7) k/uL Lymphocytes # (1.0-4.8) k/uL Monocytes # (0-1.0) k/uL Eosinophils # (0-0.7) k/uL Basophils # (0-0.2) k/uL Hypochromasia Poikilocytosis PT (9.0-12.0) sec INR (<1.2) APTT (22.0-30.0) sec Sodium (137-145) mmol/L Potassium (3.5-5.1) mmol/L Chloride (98-107) mmol/L Carbon Dioxide (22-30) mmol/L Anion Gap mmol/L BUN (9-20) mg/dL Creatinine (0.66-1.25) mg/dL Est GFR (CKD-EPI)AfAm (>60 ml/min/1.73 sqM) Est GFR (CKD-EPI)NonAf (>60 ml/min/1.73 sqM) Glucose (74-99) mg/dL Plasma Lactic Acid Asif 1.1 (0.7-2.0) mmol/L Calcium (8.4-10.2) mg/dL Magnesium 1.9 (1.6-2.3) mg/dL Total Bilirubin (0.2-1.3) mg/dL AST (17-59) U/L ALT (4-49) U/L Alkaline Phosphatase (38-126) U/L Troponin I <0.012 (0.000-0.034) ng/mL Total Protein (6.3-8.2) g/dL Albumin (3.5-5.0) g/dL Urine Color Urine Appearance (Clear) Urine pH (5.0-8.0) Ur Specific Mustang (1.001-1.035) Urine Protein (Negative) Urine Glucose (UA) (Negative) Urine Ketones (Negative) Urine Blood (Negative) Urine Nitrite (Negative) Urine Bilirubin (Negative) Urine Urobilinogen (<2.0) mg/dL Ur Leukocyte Esterase (Negative) Urine RBC (0-5) /hpf Urine WBC (0-5) /hpf Ur Squamous Epith Cells (0-4) /hpf Urine Mucus (None) /hpf Stool Occult Blood (Negative) 10/16/19 10/17/19 Range/Units 23:15 00:21 WBC (3.8-10.6) k/uL RBC (4.30-5.90) m/uL Hgb (13.0-17.5) gm/dL Hct (39.0-53.0) % MCV (80.0-100.0) fL MCH (25.0-35.0) pg MCHC (31.0-37.0) g/dL RDW (11.5-15.5) % Plt Count (150-450) k/uL Neutrophils % % Lymphocytes % % Monocytes % % Eosinophils % % Basophils % % Neutrophils # (1.3-7.7) k/uL Lymphocytes # (1.0-4.8) k/uL Monocytes # (0-1.0) k/uL Eosinophils # (0-0.7) k/uL Basophils # (0-0.2) k/uL Hypochromasia Poikilocytosis PT (9.0-12.0) sec INR (<1.2) APTT (22.0-30.0) sec Sodium (137-145) mmol/L Potassium (3.5-5.1) mmol/L Chloride (98-107) mmol/L Carbon Dioxide (22-30) mmol/L Anion Gap mmol/L BUN (9-20) mg/dL Creatinine (0.66-1.25) mg/dL Est GFR (CKD-EPI)AfAm (>60 ml/min/1.73 sqM) Est GFR (CKD-EPI)NonAf (>60 ml/min/1.73 sqM) Glucose (74-99) mg/dL Plasma Lactic Acid Asif (0.7-2.0) mmol/L Calcium (8.4-10.2) mg/dL Magnesium (1.6-2.3) mg/dL Total Bilirubin (0.2-1.3) mg/dL AST (17-59) U/L ALT (4-49) U/L Alkaline Phosphatase (38-126) U/L Troponin I (0.000-0.034) ng/mL Total Protein (6.3-8.2) g/dL Albumin (3.5-5.0) g/dL Urine Color Yellow Urine Appearance Clear (Clear) Urine pH 6.0 (5.0-8.0) Ur Specific Mustang 1.024 (1.001-1.035) Urine Protein Trace H (Negative) Urine Glucose (UA) Negative (Negative) Urine Ketones Negative (Negative) Urine Blood Negative (Negative) Urine Nitrite Positive (Negative) Urine Bilirubin Negative (Negative) Urine Urobilinogen <2.0 (<2.0) mg/dL Ur Leukocyte Esterase Large H (Negative) Urine RBC 2 (0-5) /hpf Urine WBC 65 H (0-5) /hpf Ur Squamous Epith Cells <1 (0-4) /hpf Urine Mucus Rare H (None) /hpf Stool Occult Blood Positive (Negative) - Radiology Data Radiology results: image reviewed (Chest x-ray is negative) Disposition Clinical Impression: Anemia, Urinary tract infection, Hyponatremia, GI bleed, Weakness Disposition: ADMITTED IP TO THIS [facility] Condition: Stable Is patient prescribed a controlled substance at d/c from ED?: No Referrals: Mullally,Edd, MD [Primary Care Provider] - 1-2 days Time of Disposition: 01:19
[2019-10-16 23:07] LABS: Basophils # (A) 0.1 k/uL (0-0.2); Basophils % (A) 1 %; Eosinophils # (A) 0.4 k/uL (0-0.7); Eosinophils % (A) 5 %; HCT 29.3 % (39.0-53.0); HGB 9.2 gm/dL (13.0-17.5); Hypochromasia Slight; Lymphocytes # (A) 1.7 k/uL (1.0-4.8); Lymphocytes % (A) 20 %; MCH 25.7 pg (25.0-35.0); MCHC 31.3 g/dL (31.0-37.0); MCV 82.2 fL (80.0-100.0); Mean Platelet Volume 7.1; Monocytes # (A) 0.8 k/uL (0-1.0); Monocytes % (A) 9 %; Neutrophils # (A) 5.2 k/uL (1.3-7.7); Neutrophils % (A) 62 %; Platelet Count 318 k/uL (150-450); Poikilocytosis Slight; RBC 3.57 m/uL (4.30-5.90); RDW 14.4 % (11.5-15.5); WBC 8.4 k/uL (3.8-10.6)
--- NOTE | 2019-10-16 23:14 | XR ---
EXAMINATION TYPE: XR chest 2V DATE OF EXAM: 10/16/2019 COMPARISON: 05/21/2019 HISTORY: Weakness TECHNIQUE: 2 views FINDINGS: There is no heart failure nor confluent pneumonic infiltrate. There are sternal wires. Thor acic aorta is atheromatous. Heart size is fairly normal. There is osteopenia. IMPRESSION: No active cardiopulmonary disease. No change.
[2019-10-16 23:17] LABS: ALT 14 U/L (4-49); AST 26 U/L (17-59); African American GFR (CKD) >90 (>60 ml/min/1.73 sqM); Albumin 3.6 g/dL (3.5-5.0); Alkaline Phosphatase 78 U/L (38-126); Anion Gap 7 mmol/L; Blood Urea Nitrogen 23 mg/dL (9-20); Carbon Dioxide 26 mmol/L (22-30); Chloride 95 mmol/L (98-107); Glucose 95 mg/dL (74-99); Non-African American GFR(CKD) >90 (>60 ml/min/1.73 sqM); Potassium 4.4 mmol/L (3.5-5.1); Sodium 128 mmol/L (137-145); Total Bilirubin 0.3 mg/dL (0.2-1.3); Total Protein 6.1 g/dL (6.3-8.2)
[2019-10-16 23:20] LABS: INR 0.9 (<1.2); Partial Thromboplastin Time 24.1 sec (22.0-30.0); Prothrombin Time 9.8 sec (9.0-12.0)
[2019-10-16 23:41] LABS: Appearance,Urine Clear (Clear); Bilirubin,Urine Negative (Negative); Blood,Urine Negative (Negative); Color,Urine Yellow; Glucose,Urine (UA) Negative (Negative); Ketones,Urine Negative (Negative); Leukocyte Esterase,Urine Large (Negative); Mucus,Urine Rare /hpf; Nitrite,Urine Positive (Negative); Protein,Urine Trace (Negative); RBC,Urine 2 /hpf (0-5); Specific Gravity,Urine 1.024 (1.001-1.035); Squamous Epithelial Cell,Urine <1 /hpf (0-4); Urobilinogen,Urine <2.0 mg/dL (<2.0); WBC,Urine 65 /hpf (0-5)
[2019-10-17] MEDS ORDERED: PANTOPRAZOLE 40 MG/10 ML VIAL IVP STA (00:50)
[2019-10-17] MEDS ORDERED: SODIUM CHLORIDE 0.9% 500 ML 500 ML IV ONE (00:57)
[2019-10-17] MEDS: SODIUM CHLORIDE 0.9% 1,000 ML IV SCH ×2 (02:07→21:56)
[2019-10-17] MEDS: TAMSULOSIN 0.4 MG CAP.ER.24H PO SCH (07:49)
[2019-10-17] MEDS: METOPROLOL TARTRATE 25 MG TAB PO SCH ×2 (07:49→21:55)
[2019-10-17] MEDS ORDERED: IBUPROFEN 800 MG TAB PO PRN (10:20)
--- NOTE | 2019-10-17 11:04 | HP ---
HISTORY AND PHYSICAL 84-year-old white male. Came in as he apparently had severe dehydration at home, urinary retention, foul smelling urine. They though he had possible bladder obstruction. He came to the hospital with fatigue, weak. Denied having any fever, chills, headaches, chest pain, dyspnea, cough or cold, palpitations, dizziness, abdominal pain. No nausea, vomiting, diarrhea, dysuria, or urinary symptoms. HOME MEDICINES: Budesonide 160/4.5 two puffs b.i.d., DuoNeb updrafts q.i.d., aspirin 81 mg daily, Lasix 20 b.i.d., Zestril 5 mg daily. ALLERGIES: AMOXICILLIN. REVIEW OF SYSTEMS: Fourteen-point review of systems negative except for mentioned in HPI. PAST MEDICAL HISTORY: Coronary artery disease, COPD, cancer, dementia, hypertension, prostate disorder, seizure disorder, prostate cancer years ago, has indwelling urinary catheter, legs weak due to lumbar radiculopathy, chronic neuropathy, history of CABG surgery, heart catheterization, bilateral carotid endarterectomies. FAMILY HISTORY: Cancer, leukemia, former smoker. Does not drink alcohol. Single. He is a . Lives with his family. PHYSICAL EXAMINATION: Temperature 97.9, pulse 63 to 71, respiratory 18-16, blood pressure 130s over 60s to 70s. He is in no acute distress. Head normocephalic, atraumatic. Pupils equal, round, reactive to light and accommodation. Neck is supple. No mass. Lungs show normal breath sounds bilaterally. Cardiovascular regular rate, irregular rhythm. GI soft. Hematology negative Homans. Rectal done in the ER shows brown stool. has some scrotal swelling. Circumcision. No testicular swelling or mass. Extremities show 2+ pedal edema. Negative calf tenderness. Back: No CVA tenderness bilaterally. Neurologic: Cranial nerves are intact. EKG atrial fibrillation. ASSESSMENT AND PLAN: 1. Urinary tract infection. 2. Hyponatremia. 3. Anemia. 4. Stool was guaiac positive. 5. Admitted for possible sepsis. 6. Treated with IV antibiotics and fluid rehydration. 7. Monitor for bleeding. 8. Please see further orders. 9. Prognosis guarded. MMODL / IJN: [id number] /
--- NOTE | 2019-10-17 11:52 | US ---
EXAMINATION TYPE: US renals and bladder DATE OF EXAM: 10/17/2019 COMPARISON: CLINICAL HISTORY: bladder obstructiom rule out,hx stones. Patient has bladder cath. EXAM MEASUREMENTS: Right Kidney: 9.3 x 4.1 x 4.8 cm Left Kidney: 9.6 x 4.6 x 4.7 cm Right Kidney: No hydronephrosis or masses seen Left Kidney: upper lateral cystic appearing lesion seen - 1.1 x 0.9 x 1.1 cm Bladder: peñaloza seen, nondistended Bilateral Jets not seen IMPRESSION: HYPOECHOIC AREA IN THE UPPER POLE OF THE LEFT KIDNEY DOES NOT MEET THE REQUIREMENTS OF A SIMPLE CYST AND FURTHER INVESTIGATION WOULD BE SUGGESTED.
[2019-10-17] MEDS: IPRATROPIUM-ALBUTEROL 3 ML NEB INHALATION SCH ×3 (12:46→18:54)
--- NOTE | 2019-10-17 16:15 | P.CONS ---
History of Present Illness - Reason for Consult Consult date: 10/17/19 Anemia Requesting physician: Edd Armstrong - Chief Complaint Urinary retention, foul-smelling urine - History of Present Illness 84-year-old female with multiple medical comorbidities including prostate cancer status post radiation therapy, COPD, hypertension, seizure disorder and dementia who presented to the hospital due to complaints of urinary retention and foul-smelling urine. Of note history isn't taking in conversation with the patient who is a poor historian. He reports being unable to urinate at home and the urine that he did pass was foul-smelling and dark. He denies any nausea, vomiting, diarrhea, constipation or change in bowel habits. He does report being told of a history of anemia in the past. He is been passing no blood per rectum or melanotic stool. He denies any abdominal pain. He has a significant urinary history with prostate cancer as mentioned as well as requiring cystoscopy in the past with bleeding from the bladder and stones noted. Chest x-ray on presentation negative for any cardiopulmonary process. Patient is unsure about previous endoscopy but does believe he has had a colonoscopy in the past. On presentation WBC 8.4, hemoglobin 9.2, platelet count 318,000, INR 0.9, total bilirubin 0.3, alkaline phosphatase 70, AST 26 and ALT 14 with stool positive for blood. Review of Systems REVIEW OF SYSTEMS: CONSTITUTIONAL: Denies any fevers, chills, weight change or fatigue. CARDIOVASCULAR: Denies any chest pain, palpitations high or low blood pressures RESPIRATORY: Denies any shortness of breath, hemoptysis or cough. GENITOURINARY: No hematuria or dysuria but patient has had foul-smelling dark urine with urinary retention reported. MUSCULOSKELETAL: No weakness reported. SKIN: Denies any new rashes or lesions, jaundice or pallor. PSYCHIATRIC: Denies any depression or anxiety, history of memory impairment at baseline. NEUROLOGY: Denies headache, denies any new focal deficits. EARS/NOSE/THROAT: No recent hearing change, congestion, nasal discharge or sore throat. EYES: No pain in eyes, discharge or change in vision. GASTROINTESTINAL: As per HPI. 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, heart cath prior to CABG-none since Past Anesthesia/Blood Transfusion Reactions: No Reported Reaction Past Psychological History: No Psychological Hx Reported Smoking Status: Former smoker Past Alcohol Use History: None Reported Additional Past Alcohol Use History / Comment(s): quit smoking approx 1989, smoked about 30 yrs Past Drug Use History: None Reported - Past Family History Father Family Medical History: Cancer Additional Family Medical History / Comment(s): leukemia Medications and Allergies Home Medications Medication Instructions Recorded Confirmed Type Budesonide-Formot 160-4.5 Mcg 2 puff INHALATION RT-BID 12/27/14 10/17/19 History [Symbicort 160-4.5 Mcg Inhaler] Aspirin 81 mg PO DAILY 08/15/17 10/17/19 History Tamsulosin [Flomax] 0.4 mg PO DAILY #30 cap 10/30/17 10/17/19 Rx Metoprolol Tartrate [Lopressor] 25 mg PO BID tab 05/22/19 10/17/19 Rx Lisinopril [Zestril] 5 mg PO DAILY 06/08/19 10/17/19 History amLODIPine [Norvasc] 2.5 mg PO DAILY 10/17/19 10/17/19 History Allergies Allergy/AdvReac Type Severity Reaction Status Date / Time amoxicillin Allergy Rash/Hives Verified 10/17/19 11:07 Penicillins Allergy Rash/Hives Verified 10/17/19 11:07 Physical Exam Vitals: Vital Signs Temp Pulse Pulse Resp BP BP Pulse Ox 10/17/19 07:00 98.1 F 78 17 102/56 98 10/17/19 01:56 97.8 F 79 15 157/81 95 10/17/19 00:05 71 18 135/74 96 10/16/19 22:43 97.9 F 63 18 130/65 99 Intake and Output 10/16/19 10/17/19 10/17/19 22:59 06:59 14:59 Intake Total 150 Output Total 250 Balance -100 Intake: Intake, IV Titration 150 Amount Sodium Chloride 0.9% 1, 150 000 ml @ 50 mls/hr IV . Q20H [facility] Rx#:[id number] Output: Urine 250 Other: Voiding Method Indwelling Catheter Indwelling Catheter Weight 65.771 kg 65.771 kg On physical examination, patient appears comfortable in no apparent distress. HEAD: Normocephalic, atraumatic. EYES: No scleral icterus. No conjunctival injection. MOUTH: No lesions, tongue midline. NECK: Trachea midline, no gross abnormalities. CHEST: Decreased air entry in all lung low. HEART: S1-S2 appreciated. ABDOMEN: Soft, obese. Bowel sounds are positive. No organomegaly. No guarding or rigidity. EXTREMITIES: No pedal edema. SKIN: No rashes, no jaundice. NEUROLOGIC: Alert and oriented to person and place. No focal deficits. Results CBC & Chem 7: 10/16/19 22:50 10/16/19 22:50 Labs: Abnormal Lab Results - Last 24 Hours (Table) 10/16/19 10/16/19 10/16/19 Range/Units 22:50 22:50 23:15 RBC 3.57 L (4.30-5.90) m/uL Hgb 9.2 L (13.0-17.5) gm/dL Hct 29.3 L (39.0-53.0) % Sodium 128 L (137-145) mmol/L Chloride 95 L (98-107) mmol/L BUN 23 H (9-20) mg/dL Creatinine 0.60 L (0.66-1.25) mg/dL Total Protein 6.1 L (6.3-8.2) g/dL Urine Protein Trace H (Negative) Ur Leukocyte Esterase Large H (Negative) Urine WBC 65 H (0-5) /hpf Urine Mucus Rare H (None) /hpf Chest x-ray: report reviewed (No cardiopulmonary process noted on chest x-ray) Assessment and Plan (1) Normocytic normochromic anemia Narrative/Plan: 84-year-old male with multiple medical comorbidities including prostate cancer in the remote past status post radiation therapy as well as prior cystoscopies for treatment of bleeding and stones who presented due to complaints of urinary retention and foul-smelling urine and is currently receiving treatment for urinary tract infection. He denies any signs or symptoms of GI bleeding with no nausea, vomiting, hematemesis, coffee-ground emesis, change in bowel habits, blood per rectum or melanotic stool. He does report a history of anemia but is unsure treatment at that time. He is unsure of his past endoscopic history but does believe he has had a colonoscopy in the past. Stool testing was positive for blood. As mentioned there is no signs or symptoms of GI bleeding. Unclear if anemia is secondary to chronic disease, bleeding from bladder status post radiation therapy, with a GI bleed not entirely excluded but less likely given his absence of any signs or symptoms of GI bleeding. Other etiology is also not excluded. Current Visit: Yes Status: Acute Code(s): D64.9 - ANEMIA, UNSPECIFIED SNOMED Code(s): 11306678 Plan: Supportive care Continue to monitor hemoglobin and hematocrit and transfuse as needed Continue to monitor stool output Treatment of suspected UTI for primary team Okay for full liquid diet, advance as tolerated No plan for endoscopic evaluation at this time Anemia laboratory evaluation ordered Further management pending clinical course and laboratory evaluation Thank you for allowing us to participate in the care of the patient
[2019-10-17] MEDS: FUROSEMIDE 20 MG TAB PO SCH (17:35)
[2019-10-17] MEDS: SYMBICORT 160-4.5 MCG INHALER INHALATION SCH (18:54)
[2019-10-17] MEDS: LISINOPRIL 5 MG TAB PO SCH (21:55)
[2019-10-17] MEDS: POTASSIUM CHLORIDE ER 20 MEQ TAB.ER PO SCH (21:55)
[2019-10-17] MEDS: FAMOTIDINE 20 MG TAB PO SCH (21:55)
[2019-10-18 07:06] LABS: Basophils % (A) 1 %; Eosinophils # (A) 0.3 k/uL (0-0.7); Eosinophils % (A) 5 %; HCT 26.9 % (39.0-53.0); HGB 8.2 gm/dL (13.0-17.5); Hypochromasia Moderate; Lymphocytes # (A) 1.6 k/uL (1.0-4.8); Lymphocytes % (A) 27 %; MCH 25.5 pg (25.0-35.0); MCHC 30.6 g/dL (31.0-37.0); MCV 83.4 fL (80.0-100.0); Mean Platelet Volume 7.5; Monocytes # (A) 0.5 k/uL (0-1.0); Monocytes % (A) 8 %; Neutrophils # (A) 3.3 k/uL (1.3-7.7); Neutrophils % (A) 57 %; Platelet Count 247 k/uL (150-450); RBC 3.23 m/uL (4.30-5.90); RDW 14.5 % (11.5-15.5); WBC 5.9 k/uL (3.8-10.6)
[2019-10-18 07:19] LABS: ALT 13 U/L (4-49); AST 22 U/L (17-59); African American GFR (CKD) >90 (>60 ml/min/1.73 sqM); Alkaline Phosphatase 64 U/L (38-126); Anion Gap 6 mmol/L; Blood Urea Nitrogen 16 mg/dL (9-20); Calcium 8.3 mg/dL (8.4-10.2); Carbon Dioxide 26 mmol/L (22-30); Chloride 99 mmol/L (98-107); Glucose 83 mg/dL (74-99); Non-African American GFR(CKD) 88 (>60 ml/min/1.73 sqM); Potassium 4.2 mmol/L (3.5-5.1); Sodium 131 mmol/L (137-145); Total Bilirubin 0.3 mg/dL (0.2-1.3); Total Protein 5.4 g/dL (6.3-8.2)
[2019-10-18] MEDS: TAMSULOSIN 0.4 MG CAP.ER.24H PO SCH (07:55)
[2019-10-18] MEDS: ASPIRIN 81 MG PO SCH (07:55)
[2019-10-18] MEDS: METOPROLOL TARTRATE 25 MG TAB PO SCH ×2 (07:55→20:13)
[2019-10-18] MEDS: FUROSEMIDE 20 MG TAB PO SCH ×2 (07:55→15:53)
[2019-10-18] MEDS: POTASSIUM CHLORIDE ER 20 MEQ TAB.ER PO SCH ×2 (07:55→20:13)
[2019-10-18] MEDS: FAMOTIDINE 20 MG TAB PO SCH ×2 (07:55→20:13)
[2019-10-18] MEDS: SYMBICORT 160-4.5 MCG INHALER INHALATION SCH ×2 (09:12→20:57)
[2019-10-18] MEDS: IPRATROPIUM-ALBUTEROL 3 ML NEB INHALATION SCH ×4 (09:12→20:58)
[2019-10-18 11:19] LABS: Reticulocyte % 2.28 % (0.10-1.80)
--- NOTE | 2019-10-18 11:32 | P.GSCN ---
History of Present Illness Consult date: 10/18/19 Reason for Consult: GI bleed Requesting physician: Edd Armstrong History of present illness: CHIEF COMPLAINT: GI bleed HISTORY OF PRESENT ILLNESS: 84-year-old male who is admitted to the hospital secondary to UTI and urinary retention. Patient had a stool for occult blood completed which was positive for Gen. surgery was consulted for evaluation. Patient examined this morning at the bedside. The patient denies abdominal pain. Denies any bloody stools. Case discussed with nursing who denies any dark tarry stools or bright red stools. PAST MEDICAL HISTORY: See list. PAST SURGICAL HISTORY: See list. SOCIAL HISTORY: No illicit drug use. REVIEW OF SYSTEMS: CONSTITUTIONAL: Denies fever or chills. HEENT: Denies blurred vision, vision changes, or eye pain. Denies hemoptysis CARDIOVASCULAR: Denies chest pain or pressure. RESPIRATORY: No shortness of breath. GASTROINTESTINAL: Refer to HPI for pertinent findings HEMATOLOGIC: Denies bleeding disorders. GENITOURINARY: Denies any blood in urine. SKIN: Denies pruitis. Denies rash. PHYSICAL EXAM: VITAL SIGNS: Reviewed. GENERAL: Well-developed in no acute distress. HEENT: No sclera icterus. Extraocular movements grossly intact. Moist buccal mucosa. Head is atraumatic, normocephalic. ABDOMEN: Soft. Nondistended. Nontender. NEUROLOGIC: Alert and oriented. Cranial nerves II through XII grossly intact. LABORATORY DATA: Hemoglobin on admission 9.2. Repeat 8.2. ASSESSMENT: 1. Urinary retention, urinary tract infection 2. Questionable GI bleed PLAN: Patient is currently anemic with positive stool for occult blood. However, he has had no signs of active GI bleeding since admission. Hemoglobin down today, however this may be dilutional as patient has been receiving IV fluids at 50 mL an hour and received a fluid bolus yesterday. Will advance diet. Recheck hemoglobin in the AM No plans for immediate endoscopy. We will continue to monitor Nurse practitioner note has been reviewed by physician. Signing provider agrees with the documented findings, assessment, and plan of care. 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, heart cath prior to CABG-none since Past Anesthesia/Blood Transfusion Reactions: No Reported Reaction Past Psychological History: No Psychological Hx Reported Smoking Status: Former smoker Past Alcohol Use History: None Reported Additional Past Alcohol Use History / Comment(s): quit smoking approx 1989, smoked about 30 yrs Past Drug Use History: None Reported - Past Family History Father Family Medical History: Cancer Additional Family Medical History / Comment(s): leukemia Medications and Allergies Home Medications Medication Instructions Recorded Confirmed Type Budesonide-Formot 160-4.5 Mcg 2 puff INHALATION RT-BID 12/27/14 10/17/19 History [Symbicort 160-4.5 Mcg Inhaler] Aspirin 81 mg PO DAILY 08/15/17 10/17/19 History Tamsulosin [Flomax] 0.4 mg PO DAILY #30 cap 10/30/17 10/17/19 Rx Metoprolol Tartrate [Lopressor] 25 mg PO BID tab 05/22/19 10/17/19 Rx Lisinopril [Zestril] 5 mg PO DAILY 06/08/19 10/17/19 History amLODIPine [Norvasc] 2.5 mg PO DAILY 10/17/19 10/17/19 History Allergies Allergy/AdvReac Type Severity Reaction Status Date / Time amoxicillin Allergy Rash/Hives Verified 10/17/19 11:07 Penicillins Allergy Rash/Hives Verified 10/17/19 11:07 Surgical - Exam Vital Signs Temp Pulse Resp BP Pulse Ox 97.9 F 63 18 130/65 99 10/16/19 22:43 10/16/19 22:43 10/16/19 22:43 10/16/19 22:43 10/16/19 22:43 Results - Labs 10/18/19 06:36 10/18/19 06:36 Abnormal Lab Results - Last 24 Hours (Table) 10/18/19 10/18/19 10/18/19 Range/Units 06:36 06:36 06:36 RBC 3.23 L (4.30-5.90) m/uL Hgb 8.2 L (13.0-17.5) gm/dL Hct 26.9 L (39.0-53.0) % MCHC 30.6 L (31.0-37.0) g/dL Retic Count 2.28 H (0.10-1.80) % Sodium 131 L (137-145) mmol/L Calcium 8.3 L (8.4-10.2) mg/dL Total Protein 5.4 L (6.3-8.2) g/dL Albumin 3.0 L (3.5-5.0) g/dL Microbiology - Last 24 Hours (Table) 10/16/19 23:15 Urine Culture - Preliminary Urine,Voided Diabetes panel 10/18/19 Range/Units 06:36 Sodium 131 L (137-145) mmol/L Potassium 4.2 (3.5-5.1) mmol/L Chloride 99 (98-107) mmol/L Carbon Dioxide 26 (22-30) mmol/L BUN 16 (9-20) mg/dL Creatinine 0.70 (0.66-1.25) mg/dL Glucose 83 (74-99) mg/dL Calcium 8.3 L (8.4-10.2) mg/dL AST 22 (17-59) U/L ALT 13 (4-49) U/L Alkaline Phosphatase 64 (38-126) U/L Total Protein 5.4 L (6.3-8.2) g/dL Albumin 3.0 L (3.5-5.0) g/dL Calcium panel 10/18/19 Range/Units 06:36 Calcium 8.3 L (8.4-10.2) mg/dL Albumin 3.0 L (3.5-5.0) g/dL Pituitary panel 10/18/19 Range/Units 06:36 Sodium 131 L (137-145) mmol/L Potassium 4.2 (3.5-5.1) mmol/L Chloride 99 (98-107) mmol/L Carbon Dioxide 26 (22-30) mmol/L BUN 16 (9-20) mg/dL Creatinine 0.70 (0.66-1.25) mg/dL Glucose 83 (74-99) mg/dL Calcium 8.3 L (8.4-10.2) mg/dL Adrenal panel 10/18/19 Range/Units 06:36 Sodium 131 L (137-145) mmol/L Potassium 4.2 (3.5-5.1) mmol/L Chloride 99 (98-107) mmol/L Carbon Dioxide 26 (22-30) mmol/L BUN 16 (9-20) mg/dL Creatinine 0.70 (0.66-1.25) mg/dL Glucose 83 (74-99) mg/dL Calcium 8.3 L (8.4-10.2) mg/dL Total Bilirubin 0.3 (0.2-1.3) mg/dL AST 22 (17-59) U/L ALT 13 (4-49) U/L Alkaline Phosphatase 64 (38-126) U/L Total Protein 5.4 L (6.3-8.2) g/dL Albumin 3.0 L (3.5-5.0) g/dL
[2019-10-18 17:02] LABS: Folate, Serum 9.7 ng/mL
[2019-10-18 17:08] LABS: % Iron Saturation 4.68 (15.00-50.00); Ferritin 12.3 ng/mL (22.0-322.0); Iron 17 ug/dL (65-175); Total Iron Binding Capacity 363 ug/dL (228-460)
[2019-10-18] MEDS: SODIUM CHLORIDE 0.9% 1,000 ML IV SCH (17:41)
--- NOTE | 2019-10-18 18:22 | P.GSCN ---
History of Present Illness Consult date: 10/18/19 Reason for Consult: UTI Requesting physician: Edd Armstrong History of present illness: The patient is an 84-year-old male with a history of prostate cancer, treated with IMRT and androgen deprivation therapy. He underwent cystolithotripsy in 2017 and more recently in May 2019. He has recently experienced weakness, and his urine per his daughter appears dark and malodorous. A renal ultrasound shows no evidence of hydronephrosis or bladder calculi. The ultrasound suggests the presence of a 1 cm left renal cyst, but none was seen on a CT scan in May 2019. A Tomlinson catheter was placed in the emergency room. Per nursing records, only a small amount of urine was obtained upon catheter insertion. 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, heart cath prior to CABG-none since Past Anesthesia/Blood Transfusion Reactions: No Reported Reaction Past Psychological History: No Psychological Hx Reported Smoking Status: Former smoker Past Alcohol Use History: None Reported Additional Past Alcohol Use History / Comment(s): quit smoking approx 1989, smoked about 30 yrs Past Drug Use History: None Reported - Past Family History Father Family Medical History: Cancer Additional Family Medical History / Comment(s): leukemia Medications and Allergies Home Medications Medication Instructions Recorded Confirmed Type Budesonide-Formot 160-4.5 Mcg 2 puff INHALATION RT-BID 12/27/14 10/17/19 History [Symbicort 160-4.5 Mcg Inhaler] Aspirin 81 mg PO DAILY 08/15/17 10/17/19 History Tamsulosin [Flomax] 0.4 mg PO DAILY #30 cap 10/30/17 10/17/19 Rx Metoprolol Tartrate [Lopressor] 25 mg PO BID tab 05/22/19 10/17/19 Rx Lisinopril [Zestril] 5 mg PO DAILY 06/08/19 10/17/19 History amLODIPine [Norvasc] 2.5 mg PO DAILY 10/17/19 10/17/19 History Allergies Allergy/AdvReac Type Severity Reaction Status Date / Time amoxicillin Allergy Rash/Hives Verified 10/17/19 11:07 Penicillins Allergy Rash/Hives Verified 10/17/19 11:07 Surgical - Exam Vital Signs Temp Pulse Resp BP Pulse Ox 97.9 F 63 18 130/65 99 10/16/19 22:43 10/16/19 22:43 10/16/19 22:43 10/16/19 22:43 10/16/19 22:43 - General well developed, well nourished, no distress - Respiratory normal respiratory effort - Abdomen Abdomen: soft, non tender, no guarding, no rigid, no rebound - Genitourinary normal penis with no external lesions, testicles non-tender - Psychiatric oriented to time, oriented to person, oriented to place, speech is normal, memory intact Results - Labs 10/18/19 06:36 10/18/19 06:36 Microbiology - Last 24 Hours (Table) 10/16/19 23:15 Urine Culture - Preliminary Urine,Voided - Imaging US - kidney/bladder: report reviewed Assessment and Plan (1) UTI (urinary tract infection) Current Visit: Yes Status: Acute Code(s): N39.0 - URINARY TRACT INFECTION, SITE NOT SPECIFIED SNOMED Code(s): 07285911 Plan: Urinalysis is suggestive of a UTI. A urine culture was sent. In the meantime, he is being treated with Rocephin. Ultrasound shows no evidence of hydronephrosis or recurrent bladder calculi. The Tomlinson catheter is currently draining clear yellow urine. I would suggest that Mr. Garcia be treated with culture appropriate antibiotics, and that the Tomlinson catheter be removed when no longer medically needed. Please notify us if we can be of any further assistance. Time with Patient: Greater than 30
[2019-10-18] MEDS: LISINOPRIL 5 MG TAB PO SCH (20:13)
--- NOTE | 2019-10-18 23:45 | PN ---
PROGRESS NOTE 84-year-old white male with UTI, GI bleed, anemia, urinary retention. Hemoglobin dropped a whole point since yesterday. He is given fluid rehydration. Does not feel good. He is going to get EGD and colonoscopy on Friday. Waiting for urine culture to be finalized. Waiting for urology recommendations. Cardiovascular S1-S2. Lungs clear. Integument is pale. Urine was clear out of the Tomlinson catheter. Extremities 2+ edema. ASSESSMENT: 1. Urinary tract infection. 2. Gastrointestinal bleed. 3. Anemia. 4. Chronic obstructive pulmonary disease. 5. Chronic leg weakness. 6. Chronic lumbar radiculopathy. Continue current treatment, IV Rocephin. Endoscopy will be done once with EGD and colonoscopy. Transfuse if hemoglobin drops below 7. MMODL / IJN: [id number] /
[2019-10-19] MEDS: POTASSIUM CHLORIDE ER 20 MEQ TAB.ER PO SCH ×2 (07:18→21:07)
[2019-10-19] MEDS: FAMOTIDINE 20 MG TAB PO SCH ×2 (07:18→21:07)
[2019-10-19] MEDS: ASPIRIN 81 MG PO SCH (07:19)
[2019-10-19] MEDS: TAMSULOSIN 0.4 MG CAP.ER.24H PO SCH (07:19)
[2019-10-19] MEDS: METOPROLOL TARTRATE 25 MG TAB PO SCH ×2 (07:19→21:07)
[2019-10-19] MEDS: FUROSEMIDE 20 MG TAB PO SCH ×2 (07:19→18:08)
--- NOTE | 2019-10-19 09:12 | P.PN ---
Subjective Progress Note Date: 10/18/19 Principal diagnosis: Normocytic, normochromic anemia Patient is seen lying in bed. No acute events overnight. No signs or symptoms of GI bleeding reported. Objective - Vital Signs Vital signs: Vital Signs Temp 98 F 10/18/19 14:31 Pulse 86 10/18/19 14:31 Resp 16 10/18/19 14:31 BP 108/60 10/18/19 14:31 Pulse Ox 95 10/18/19 14:31 Intake & Output 10/17/19 10/18/19 10/18/19 18:59 06:59 18:59 Intake Total 630 Output Total 1200 Balance -1200 630 Intake: Intake, IV Titration 50 Amount cefTRIAXone 1 gm In 50 Sodium Chloride 0.9% 50 ml @ 100 mls/hr IVPB Q12HR [facility] Rx#:[id number] Oral 580 Output: Urine 1200 Other: Voiding Method Indwelling Catheter Indwelling Catheter Indwelling Catheter # Bowel Movements 2 - Exam On physical examination, patient appears comfortable in no apparent distress. HEAD: Normocephalic, atraumatic. EYES: No scleral icterus. No conjunctival injection. MOUTH: No lesions, tongue midline. NECK: Trachea midline, no gross abnormalities. ABDOMEN: Soft, obese. Bowel sounds are positive. No organomegaly. No guarding or rigidity. EXTREMITIES: No pedal edema. SKIN: No rashes, no jaundice. NEUROLOGIC: Alert and oriented to person. No focal deficits. - Labs CBC & Chem 7: 10/18/19 06:36 10/18/19 06:36 Labs: Abnormal Lab Results - Last 24 Hours (Table) 10/18/19 10/18/19 10/18/19 Range/Units 06:36 06:36 06:36 RBC 3.23 L (4.30-5.90) m/uL Hgb 8.2 L (13.0-17.5) gm/dL Hct 26.9 L (39.0-53.0) % MCHC 30.6 L (31.0-37.0) g/dL Retic Count 2.28 H (0.10-1.80) % Sodium 131 L (137-145) mmol/L Calcium 8.3 L (8.4-10.2) mg/dL Total Protein 5.4 L (6.3-8.2) g/dL Albumin 3.0 L (3.5-5.0) g/dL Microbiology - Last 24 Hours (Table) 10/16/19 23:15 Urine Culture - Preliminary Urine,Voided Coagulase Negative Staph Assessment and Plan (1) Normocytic normochromic anemia Narrative/Plan: 84-year-old male with multiple medical comorbidities including prostate cancer in the remote past status post radiation therapy as well as prior cystoscopies for treatment of bleeding and stones who presented due to complaints of urinary retention and foul-smelling urine and is currently receiving treatment for urinary tract infection. He denies any signs or symptoms of GI bleeding with no nausea, vomiting, hematemesis, coffee-ground emesis, change in bowel habits, blood per rectum or melanotic stool. He does report a history of anemia but is unsure treatment at that time. He is unsure of his past endoscopic history but does believe he has had a colonoscopy in the past. Stool testing was positive for blood. As mentioned there is no signs or symptoms of GI bleeding. Unclear if anemia is secondary to chronic disease, bleeding from bladder status post radiation therapy, with a GI bleed not entirely excluded but less likely given his absence of any signs or symptoms of GI bleeding. Other etiology is also not excluded. Reticulocyte count appropriately elevated. Iron studies significant for iron deficiency. Vitamin B12 and folate normal. Current Visit: Yes Status: Acute Code(s): D64.9 - ANEMIA, UNSPECIFIED SNOMED Code(s): 44584890 Plan: Supportive care Continue to monitor hemoglobin and hematocrit and transfuse as needed Continue to monitor stool output Treatment of suspected UTI for primary team Surgical service also following the patient with plan for endoscopic evaluation, we'll defer to their service Anemia laboratory evaluation and significant for iron deficiency with appropriately elevated reticulocyte count Iron supplementation with IV iron ordered 3 Further management pending clinical course and laboratory evaluation Thank you for allowing us to participate in the care of the patient, the GI service will stand by, please call us back with any questions or concerns
[2019-10-19] MEDS: IPRATROPIUM-ALBUTEROL 3 ML NEB INHALATION SCH ×4 (09:33→20:29)
[2019-10-19] MEDS: SYMBICORT 160-4.5 MCG INHALER INHALATION SCH ×2 (09:33→20:29)
[2019-10-19] MEDS ORDERED: LIDOCAINE 1% (10MG/ML) FOR IV START INTRADERMA PRN (09:42)
[2019-10-19] MEDS ORDERED: LACTATED RINGERS 1,000 ML IV SCH (09:45)
[2019-10-19] MEDS: SODIUM FERRIC GLUCONAT-SUCROSE 125 MG in SODIUM CHLORIDE 0.9% 100 ML IVPB SCH (10:14)
[2019-10-19] MEDS: LACTATED RINGERS 1,000 ML IV SCH (10:14)
--- NOTE | 2019-10-19 11:39 | P.PN ---
Subjective Progress Note Date: 10/19/19 CHIEF COMPLAINT: GI bleed HISTORY OF PRESENT ILLNESS: Patient examined this morning at the bedside. Patient denies abdominal pain. Tolerating clear liquid diet. Vital signs stable. No bloody or dark stools noted. PHYSICAL EXAM: VITAL SIGNS: Reviewed. GENERAL: Well-developed in no acute distress. HEENT: No sclera icterus. Extraocular movements grossly intact. Moist buccal mucosa. Head is atraumatic, normocephalic. ABDOMEN: Soft. Nondistended. Nontender. NEUROLOGIC: Alert and oriented. Cranial nerves II through XII grossly intact. ASSESSMENT: 1. Urinary retention, urinary tract infection 2. Questionable GI bleed PLAN: Clear liquid diet. Nothing by mouth at midnight GoLYTELY bowel prep today Patient to undergo EGD and colonoscopy tomorrow with Dr. Kurtz Nurse practitioner note has been reviewed by physician. Signing provider agrees with the documented findings, assessment, and plan of care. Objective - Vital Signs Vital signs: Vital Signs Temp 98 F 10/19/19 07:00 Pulse 88 10/19/19 09:47 Resp 16 10/19/19 07:00 BP 171/83 10/19/19 07:00 Pulse Ox 95 10/19/19 07:00 Intake & Output 10/18/19 10/19/19 10/19/19 18:59 06:59 18:59 Intake Total 1170 250 730 Output Total 1800 900 Balance -630 -650 730 Intake: Intake, IV Titration 50 250 150 Amount Sodium Chloride 0.9% 1, 200 100 000 ml @ 50 mls/hr IV . Q20H ÓSCAR Rx#:[id number] cefTRIAXone 1 gm In 50 50 50 Sodium Chloride 0.9% 50 ml @ 100 mls/hr IVPB Q12HR ÓSCAR Rx#:[id number] Oral 1120 580 Output: Urine 1800 900 Uretheral (Tomlinson) 1800 Other: Voiding Method Indwelling Catheter Indwelling Catheter Indwelling Catheter - Labs CBC & Chem 7: 10/18/19 06:36 10/18/19 06:36 Labs: Abnormal Lab Results - Last 24 Hours (Table) 10/18/19 Range/Units 06:36 Iron 17 L (65-175) ug/dL % Saturation 4.68 L (15.00-50.00) Ferritin 12.3 L (22.0-322.0) ng/mL Microbiology - Last 24 Hours (Table) 10/16/19 23:15 Urine Culture - Final Urine,Voided Staphylococcus epidermidis
[2019-10-19] MEDS ORDERED: PEG 3350-NA SULF,BICARB,CL/KCL 4,000 ML BOTTLE PO ONE (12:00)
[2019-10-19 12:55] LABS: Basophils # (A) 0.1 k/uL (0-0.2); Basophils % (A) 1 %; Eosinophils # (A) 0.4 k/uL (0-0.7); Eosinophils % (A) 6 %; HCT 30.8 % (39.0-53.0); HGB 9.2 gm/dL (13.0-17.5); Hypochromasia Marked; Lymphocytes # (A) 1.5 k/uL (1.0-4.8); Lymphocytes % (A) 22 %; MCH 24.9 pg (25.0-35.0); MCHC 29.8 g/dL (31.0-37.0); MCV 83.5 fL (80.0-100.0); Mean Platelet Volume 8.1; Monocytes # (A) 0.5 k/uL (0-1.0); Monocytes % (A) 7 %; Neutrophils # (A) 4.3 k/uL (1.3-7.7); Neutrophils % (A) 62 %; Platelet Count 320 k/uL (150-450); Poikilocytosis Slight; RBC 3.69 m/uL (4.30-5.90); WBC 6.9 k/uL (3.8-10.6)
--- NOTE | 2019-10-19 14:38 | P.PN ---
Subjective Progress Note Date: 10/19/19 This is an 84-year-old gentleman admitted with acute UTI, GI bleed and multiple other medical issues. Maintained on gentle IV fluid hydration. Evaluated by surgery and is scheduled for both EGD/colonoscopy tomorrow. No further bleeding reported, denies rectal bleeding. Denies abdominal pain. Hemoglobin 9.2. Afebrile. Normal WBC. Urine culture reporting Staphylococcus epidermidis. Denies chest pain, palpitations or shortness of breath. Objective - Vital Signs Vital signs: Vital Signs Temp 98 F 10/19/19 07:00 Pulse 86 10/19/19 12:46 Resp 16 10/19/19 07:00 BP 171/83 10/19/19 07:00 Pulse Ox 95 10/19/19 07:00 Intake & Output 10/18/19 10/19/19 10/19/19 18:59 06:59 18:59 Intake Total 1170 250 730 Output Total 1800 900 Balance -630 -650 730 Intake: Intake, IV Titration 50 250 150 Amount Sodium Chloride 0.9% 1, 200 100 000 ml @ 50 mls/hr IV . Q20H ÓSCAR Rx#:[id number] cefTRIAXone 1 gm In 50 50 50 Sodium Chloride 0.9% 50 ml @ 100 mls/hr IVPB Q12HR ÓSCAR Rx#:[id number] Oral 1120 580 Output: Urine 1800 900 Uretheral (Tomlinson) 1800 Other: Voiding Method Indwelling Catheter Indwelling Catheter Indwelling Catheter - Exam PHYSICAL EXAM: VITAL SIGNS: [As above] GENERAL: Sitting up in bed, no acute distress HEENT: Conjunctivae normal. eyes normal. Oral mucosa moist NECK: No JVD. No thyroid enlargement. No LNs CARDIOVASCULAR: S1, S2 regular. No murmur RESPIRATION: Breath sounds diminished in the bases. No rhonchi or crackles. No bronchial breathing. ABDOMEN: Soft, nondistended, nontender . No guarding. no masses palpable. No ascites, No hepatosplenomegaly.Bowel sounds heard. LEGS: positive edema. PSYCHIATRY: Alert and oriented X3, mood and affect normal. NERVOUS SYSTEM: Cranial N 2-12 grossly normal. Diffuse weakness No focal deficits. Strength and sensation grossly intact. Skin: no rash - Labs CBC & Chem 7: 10/19/19 12:42 10/18/19 06:36 Labs: Abnormal Lab Results - Last 24 Hours (Table) 10/18/19 10/19/19 Range/Units 06:36 12:42 RBC 3.69 L (4.30-5.90) m/uL Hgb 9.2 L (13.0-17.5) gm/dL Hct 30.8 L (39.0-53.0) % MCH 24.9 L (25.0-35.0) pg MCHC 29.8 L (31.0-37.0) g/dL Iron 17 L (65-175) ug/dL % Saturation 4.68 L (15.00-50.00) Ferritin 12.3 L (22.0-322.0) ng/mL Microbiology - Last 24 Hours (Table) 10/16/19 23:15 Urine Culture - Final Urine,Voided Staphylococcus epidermidis Assessment and Plan Assessment: Acute UTI secondary to urinary retention, cultures reporting staphylococcal epidermidis Acute blood loss anemia , possible GI bleed COPD, stable Chronic lumbar radiculopathy with leg weakness Plan: Continue on current medication regime ,monitoring and symptomatic treatment. Maintain IV antibiotics. EGD/colonoscopy tomorrow. Close monitoring of hemoglobin with repeat labs ordered for a.m. The impression and plan of care has been dictated as directed. : I performed a history and examination of this patient, discussed the same with the dictator. I agree with the dictator's note ,documented as a scribe. Any additional findings or plans will be noted.
[2019-10-19] MEDS: SODIUM CHLORIDE 0.9% 1,000 ML IV SCH (18:09)
[2019-10-19] MEDS: LISINOPRIL 5 MG TAB PO SCH (21:07)
[2019-10-20 07:36] LABS: Basophils # (A) 0.1 k/uL (0-0.2); Basophils % (A) 1 %; Eosinophils # (A) 0.8 k/uL (0-0.7); Eosinophils % (A) 11 %; HCT 28.6 % (39.0-53.0); HGB 8.8 gm/dL (13.0-17.5); Hypochromasia Moderate; Lymphocytes # (A) 1.4 k/uL (1.0-4.8); Lymphocytes % (A) 21 %; MCH 25.5 pg (25.0-35.0); MCHC 30.7 g/dL (31.0-37.0); Mean Platelet Volume 7.2; Monocytes # (A) 0.6 k/uL (0-1.0); Monocytes % (A) 9 %; Neutrophils # (A) 3.7 k/uL (1.3-7.7); Neutrophils % (A) 55 %; Platelet Count 283 k/uL (150-450); RBC 3.44 m/uL (4.30-5.90); RDW 14.5 % (11.5-15.5); WBC 6.6 k/uL (3.8-10.6)
[2019-10-20] MEDS: FUROSEMIDE 20 MG TAB PO SCH ×2 (07:36→17:03)
[2019-10-20] MEDS: FAMOTIDINE 20 MG TAB PO SCH ×2 (07:36→20:34)
[2019-10-20] MEDS: TAMSULOSIN 0.4 MG CAP.ER.24H PO SCH (07:36)
[2019-10-20] MEDS: ASPIRIN 81 MG PO SCH (07:36)
[2019-10-20] MEDS: POTASSIUM CHLORIDE ER 20 MEQ TAB.ER PO SCH ×2 (07:36→20:34)
[2019-10-20] MEDS: METOPROLOL TARTRATE 25 MG TAB PO SCH ×2 (08:31→20:34)
[2019-10-20] MEDS: IPRATROPIUM-ALBUTEROL 3 ML NEB INHALATION SCH ×4 (09:13→19:34)
[2019-10-20] MEDS: SYMBICORT 160-4.5 MCG INHALER INHALATION SCH ×2 (09:13→19:34)
[2019-10-20] MEDS: SODIUM FERRIC GLUCONAT-SUCROSE 125 MG in SODIUM CHLORIDE 0.9% 100 ML IVPB SCH (10:20)
[2019-10-20] MEDS ORDERED: IV FLUID CONTINUATION 1,000 ML IV ONE (11:36)
[2019-10-20] MEDS ORDERED: LIDOCAINE 1% INJ 10MG/ML (20 ML MDV) ONE (11:37)
[2019-10-20] MEDS ORDERED: PROPOFOL 10 MG/ML 20 ML VIAL IV ONE (11:37)
[2019-10-20] MEDS ORDERED: PHENYLEPHRINE-0.9% NACL SYG 1 MG/10 ML SYRINGE ONE (11:37)
[2019-10-20] MEDS ORDERED: PEG 3350-NA SULF,BICARB,CL/KCL 4,000 ML BOTTLE PO ONE (11:55)
--- NOTE | 2019-10-20 14:07 | P.OP ---
Date of Procedure: 10/20/19 Preoperative Diagnosis: GI bleed Postoperative Diagnosis: Mild antral gastritis Moderate size hiatal hernia Esophagitis Procedure(s) Performed: EGD Anesthesia: MAC Surgeon: Rosendo Kurtz Pathology: other (Antrum, esophagus) Condition: stable Disposition: PACU Description of Procedure: The patient's placed on the endoscopy table lateral position. He received IV sedation. The gastro-/oropharynx passed in the esophagus and stomach. Scope was then placed through the pylorus. The first and second portion duodenum. Normal. There is no evidence of incentive duodenitis or duodenal ulcer. Scope and her back and the antrum appeared mildly inflamed. Biopsies performed. Scope was unretroflexed and remainder stomach appeared normal. There was a moderate size hiatal hernia. The hiatal hernia appeared to be fixed in position.. The GE junction was at 37 cm. There appeared to be evidence of di stal esophagitis. Biopsies performed. The scope was then brought back the proximal esophagus appeared normal. Scope withdrawn from the patient.
--- NOTE | 2019-10-20 14:40 | P.PN ---
Subjective Progress Note Date: 10/20/19 This is an 84-year-old gentleman admitted with acute UTI, GI bleed and multiple other medical issues. Maintained on gentle IV fluid hydration. Evaluated by surgery and is scheduled for both EGD/colonoscopy tomorrow. No further bleeding reported, denies rectal bleeding. Denies abdominal pain. Hemoglobin 9.2. Afebrile. Normal WBC. Urine culture reporting Staphylococcus epidermidis. Denies chest pain, palpitations or shortness of breath. 10/20/19 underwent EGD reportedly mild antral gastritis, moderate hiatal hernia and esophagitis. Colonoscopy unable to be performed secondary to insufficient prep. Patient declined full prep. Colonoscopy prep. reumed for colonoscopy tomorrow. No bleeding. Hemoglobin 8.8. Denies abdominal pain. Objective - Vital Signs Vital signs: Vital Signs Temp 97.3 F L 10/20/19 07:00 Pulse 76 10/20/19 13:21 Resp 17 10/20/19 07:00 BP 148/73 10/20/19 07:00 Pulse Ox 96 10/20/19 07:00 Intake & Output 10/19/19 10/20/19 10/20/19 18:59 06:59 18:59 Intake Total 730 400 100 Output Total 450 250 Balance 730 -50 -150 Intake: IV 100 Intake, IV Titration 150 400 Amount Sodium Chloride 0.9% 1, 100 350 000 ml @ 50 mls/hr IV . Q20H ÓSCAR Rx#:[id number] cefTRIAXone 1 gm In 50 50 Sodium Chloride 0.9% 50 ml @ 100 mls/hr IVPB Q12HR ÓSCAR Rx#:[id number] Oral 580 Output: Urine 450 250 Other: Voiding Method Indwelling Catheter Indwelling Catheter Indwelling Catheter # Bowel Movements 1 - Exam PHYSICAL EXAM: VITAL SIGNS: [As above] GENERAL: Sitting up in bed, no acute distress HEENT: Conjunctivae normal. eyes normal. Oral mucosa moist NECK: No JVD. No thyroid enlargement. No LNs CARDIOVASCULAR: S1, S2 regular. No murmur RESPIRATION: Breath sounds diminished in the bases. No rhonchi or crackles. ABDOMEN: Soft, nondistended, nontender . No guarding. no masses palpable. Bowel sounds heard. LEGS: positive edema. PSYCHIATRY: Alert and oriented X3, mood and affect normal. NERVOUS SYSTEM: Cranial N 2-12 grossly normal. Diffuse weakness No focal deficits. Strength and sensation grossly intact. Skin: no rash - Labs CBC & Chem 7: 10/20/19 06:31 10/18/19 06:36 Labs: Abnormal Lab Results - Last 24 Hours (Table) 10/20/19 Range/Units 06:31 RBC 3.44 L (4.30-5.90) m/uL Hgb 8.8 L (13.0-17.5) gm/dL Hct 28.6 L (39.0-53.0) % MCHC 30.7 L (31.0-37.0) g/dL Eosinophils # 0.8 H (0-0.7) k/uL Microbiology - Last 24 Hours (Table) 10/16/19 23:15 Urine Culture - Final Urine,Voided Staphylococcus epidermidis Assessment and Plan Assessment: Acute UTI secondary to urinary retention, cultures reporting staphylococcal epidermidis Acute blood loss anemia , possible GI bleed Mild antral gastritis, moderate hiatal hernia and esophagitis per EGD COPD, stable Chronic lumbar radiculopathy with leg weakness Plan: Continue on current medication regime ,monitoring and symptomatic treatment. Re-attempting prep for colonoscopy. Colonoscopy rescheduled for tomorrow. Close monitoring of hemoglobin with repeat labs ordered for a.m. The impression and plan of care has been dictated as directed. : I performed a history and examination of this patient, discussed the same with the dictator. I agree with the dictator's note ,documented as a scribe. Any additional findings or plans will be noted.
[2019-10-20] MEDS: LACTATED RINGERS 1,000 ML IV SCH (19:34)
[2019-10-20] MEDS: SODIUM CHLORIDE 0.9% 1,000 ML IV SCH (20:34)
[2019-10-20] MEDS: LISINOPRIL 5 MG TAB PO SCH (20:34)
[2019-10-20] MEDS ORDERED: DAPTOmycin 500 MG in SODIUM CHLORIDE 0.9% 50 ML IVPB SCH (23:00)
[2019-10-21] MEDS: SODIUM CHLORIDE 0.9% 1,000 ML IV SCH (05:27)
[2019-10-21] MEDS: SYMBICORT 160-4.5 MCG INHALER INHALATION SCH ×2 (07:29→21:57)
[2019-10-21] MEDS: IPRATROPIUM-ALBUTEROL 3 ML NEB INHALATION SCH ×4 (07:29→21:57)
[2019-10-21 07:40] LABS: Basophils # (A) 0.1 k/uL (0-0.2); Basophils % (A) 1 %; Eosinophils # (A) 0.6 k/uL (0-0.7); Eosinophils % (A) 9 %; HCT 27.8 % (39.0-53.0); HGB 8.4 gm/dL (13.0-17.5); Hypochromasia Marked; Lymphocytes # (A) 1.7 k/uL (1.0-4.8); Lymphocytes % (A) 24 %; MCH 24.9 pg (25.0-35.0); MCHC 30.3 g/dL (31.0-37.0); MCV 82.2 fL (80.0-100.0); Monocytes # (A) 0.6 k/uL (0-1.0); Monocytes % (A) 9 %; Neutrophils # (A) 3.9 k/uL (1.3-7.7); Neutrophils % (A) 55 %; Platelet Count 308 k/uL (150-450); Poikilocytosis Slight; RBC 3.38 m/uL (4.30-5.90); RDW 14.3 % (11.5-15.5)
[2019-10-21 07:58] LABS: ALT 13 U/L (4-49); AST 24 U/L (17-59); African American GFR (CKD) >90 (>60 ml/min/1.73 sqM); Albumin 3.2 g/dL (3.5-5.0); Alkaline Phosphatase 85 U/L (38-126); Anion Gap 7 mmol/L; Blood Urea Nitrogen 11 mg/dL (9-20); Calcium 8.8 mg/dL (8.4-10.2); Carbon Dioxide 29 mmol/L (22-30); Chloride 95 mmol/L (98-107); Glucose 83 mg/dL (74-99); Non-African American GFR(CKD) 90 (>60 ml/min/1.73 sqM); Potassium 4.2 mmol/L (3.5-5.1); Sodium 131 mmol/L (137-145); Total Bilirubin 0.4 mg/dL (0.2-1.3); Total Protein 5.5 g/dL (6.3-8.2)
[2019-10-21] MEDS: POTASSIUM CHLORIDE ER 20 MEQ TAB.ER PO SCH ×2 (08:39→20:03)
[2019-10-21] MEDS: FUROSEMIDE 20 MG TAB PO SCH ×2 (08:39→16:32)
[2019-10-21] MEDS: ASPIRIN 81 MG PO SCH (08:39)
[2019-10-21] MEDS: FAMOTIDINE 20 MG TAB PO SCH ×2 (08:39→20:03)
[2019-10-21] MEDS: METOPROLOL TARTRATE 25 MG TAB PO SCH ×2 (08:40→20:03)
[2019-10-21] MEDS: SODIUM FERRIC GLUCONAT-SUCROSE 125 MG in SODIUM CHLORIDE 0.9% 100 ML IVPB SCH (08:40)
[2019-10-21] MEDS ORDERED: PEG 3350-NA SULF,BICARB,CL/KCL 4,000 ML BOTTLE PO ONE (09:03)
[2019-10-21] MEDS: TAMSULOSIN 0.4 MG CAP.ER.24H PO SCH (09:58)
--- NOTE | 2019-10-21 10:58 | P.PN ---
Progress Note - Text Progress Note Date: 10/21/19 Patient refusing to drink bowel prep. Patients daughters notified and would still like to proceed with colonoscopy per nursing. Will place NG tube to administer GoLYTELY. Clear liquid diet today. NPO at midnight. Colonoscopy rescheduled for tomorrow with Dr. Kurtz.
--- NOTE | 2019-10-21 13:34 | P.PN ---
Subjective Progress Note Date: 10/21/19 This is an 84-year-old gentleman admitted with acute UTI, GI bleed and multiple other medical issues. Maintained on gentle IV fluid hydration. Evaluated by surgery and is scheduled for both EGD/colonoscopy tomorrow. No further bleeding reported, denies rectal bleeding. Denies abdominal pain. Hemoglobin 9.2. Afebrile. Normal WBC. Urine culture reporting Staphylococcus epidermidis. Denies chest pain, palpitations or shortness of breath. 10/20/19 underwent EGD reportedly mild antral gastritis, moderate hiatal hernia and esophagitis. Colonoscopy unable to be performed secondary to insufficient prep. Patient declined full prep. Colonoscopy prep. reumed for colonoscopy tomorrow. No bleeding. Hemoglobin 8.8. Denies abdominal pain. 10/21/2019 continues refusing to drink bowel prep. Family insistant on colonoscopy. Surgery notified, rescheduled for tomorrow. RN at bedside encouraging patient to follow through with bowel prep. Objective - Vital Signs Vital signs: Vital Signs Temp 98.4 F 10/21/19 08:32 Pulse 84 10/21/19 11:27 Resp 20 10/21/19 08:32 BP 147/67 10/21/19 08:32 Pulse Ox 97 10/21/19 08:32 Intake & Output 10/20/19 10/21/19 10/21/19 18:59 06:59 18:59 Intake Total 100 Output Total 725 801 350 Balance -625 -801 -350 Weight 70 kg Intake: IV 100 Output: Urine 725 800 350 Stool 1 Other: Voiding Method Indwelling Catheter Indwelling Catheter Indwelling Catheter # Bowel Movements 1 1 - Exam PHYSICAL EXAM: VITAL SIGNS: [As above] GENERAL: Sitting up in bed, no acute distress HEENT: Conjunctivae normal. eyes normal. Oral mucosa moist NECK: No JVD. No thyroid enlargement. No LNs CARDIOVASCULAR: S1, S2 regular. No murmur RESPIRATION: Breath sounds diminished in the bases. No rhonchi or crackles. ABDOMEN: Soft, nondistended, nontender . No guarding. no masses palpable. Bowel sounds heard. LEGS: positive edema. PSYCHIATRY: Alert and oriented X3, mood and affect normal. NERVOUS SYSTEM: Cranial N 2-12 grossly normal. Diffuse weakness No focal deficits. Strength and sensation grossly intact. Skin: no rash - Labs CBC & Chem 7: 10/21/19 06:53 10/21/19 06:53 Labs: Abnormal Lab Results - Last 24 Hours (Table) 10/21/19 10/21/19 Range/Units 06:53 06:53 RBC 3.38 L (4.30-5.90) m/uL Hgb 8.4 L (13.0-17.5) gm/dL Hct 27.8 L (39.0-53.0) % MCH 24.9 L (25.0-35.0) pg MCHC 30.3 L (31.0-37.0) g/dL Sodium 131 L (137-145) mmol/L Chloride 95 L (98-107) mmol/L Total Protein 5.5 L (6.3-8.2) g/dL Albumin 3.2 L (3.5-5.0) g/dL Assessment and Plan Assessment: Acute UTI secondary to urinary retention, cultures reporting staphylococcal epidermidis Acute blood loss anemia , possible GI bleed Mild antral gastritis, moderate hiatal hernia and esophagitis per EGD COPD, stable Chronic lumbar radiculopathy with leg weakness Plan: Continue on current medication regime ,monitoring and symptomatic david atment. Continue Re-attempting prep for colonoscopy. Colonoscopy rescheduled for tomorrow. Close monitoring of hemoglobin with repeat labs ordered for a.m. The impression and plan of care has been dictated as directed. : I performed a history and examination of this patient, discussed the same with the dictator. I agree with the dictator's note ,documented as a scribe. Any additional findings or plans will be noted.
[2019-10-21] MEDS ORDERED: VANCOMYCIN IV PER PHARMACY 1 EACH MISC MISCELLANE PRN (14:43)
[2019-10-21] MEDS ORDERED: VANCOMYCIN 1,500 MG in SODIUM CHLORIDE 0.9% 250 ML IVPB ONE (15:00)
[2019-10-21 16:26] LABS: Appearance,Urine Clear (Clear); Bacteria,Urine Rare /hpf; Bilirubin,Urine Negative (Negative); Blood,Urine Trace (Negative); Color,Urine Yellow; Glucose,Urine (UA) Negative (Negative); Hyaline Casts,Urine 1 /lpf (0-2); Ketones,Urine 1+ (Negative); Leukocyte Esterase,Urine Small (Negative); Mucus,Urine Rare /hpf; Nitrite,Urine Negative (Negative); PH, Urine 6.5 (5.0-8.0); Protein,Urine 2+ (Negative); RBC,Urine 11 /hpf (0-5); Specific Gravity,Urine 1.016 (1.001-1.035); Urobilinogen,Urine <2.0 mg/dL (<2.0); WBC,Urine 8 /hpf (0-5)
[2019-10-21] MEDS: LACTATED RINGERS 1,000 ML IV SCH (16:28)
[2019-10-21] MEDS: LISINOPRIL 5 MG TAB PO SCH (20:03)
[2019-10-21 22:46] LABS: ABG Base Excess -2.5 mmol/L; ABG HCO3 23 mmol/L (21-25); ABG Oxygen Saturation 99.6 % (94-97); ABG PCO2 43 mmHg (35-45); ABG PH 7.35 (7.35-7.45); ABG PO2 206 mmHg (83-108); ABG TCO2 25 mmol/L (19-24); Allen Test Performed? Yes
[2019-10-21 22:46] LABS: Glucose,Whole Blood 124 mg/dL (75-99)
[2019-10-21 22:48] LABS: Basophils # (A) 0.1 k/uL (0-0.2); Basophils % (A) 1 %; Eosinophils # (A) 0.6 k/uL (0-0.7); Eosinophils % (A) 6 %; HCT 28.9 % (39.0-53.0); HGB 8.8 gm/dL (13.0-17.5); Hypochromasia Moderate; Lymphocytes % (A) 32 %; MCH 25.5 pg (25.0-35.0); MCHC 30.3 g/dL (31.0-37.0); MCV 84.2 fL (80.0-100.0); Mean Platelet Volume 7.1; Monocytes # (A) 0.8 k/uL (0-1.0); Monocytes % (A) 9 %; Neutrophils # (A) 4.6 k/uL (1.3-7.7); Neutrophils % (A) 49 %; Platelet Count 302 k/uL (150-450); RBC 3.44 m/uL (4.30-5.90); WBC 9.4 k/uL (3.8-10.6)
[2019-10-21 23:01] LABS: ALT 14 U/L (4-49); AST 26 U/L (17-59); African American GFR (CKD) >90 (>60 ml/min/1.73 sqM); Albumin 3.2 g/dL (3.5-5.0); Alkaline Phosphatase 86 U/L (38-126); Anion Gap 13 mmol/L; Blood Urea Nitrogen 8 mg/dL (9-20); Calcium 8.5 mg/dL (8.4-10.2); Carbon Dioxide 23 mmol/L (22-30); Chloride 95 mmol/L (98-107); Creatine Kinase 48 U/L (55-170); Glucose 133 mg/dL (74-99); Magnesium 1.9 mg/dL (1.6-2.3); Non-African American GFR(CKD) >90 (>60 ml/min/1.73 sqM); Sodium 131 mmol/L (137-145); Total Bilirubin 0.4 mg/dL (0.2-1.3); Total Protein 5.5 g/dL (6.3-8.2)
--- NOTE | 2019-10-21 23:05 | P.PN ---
Progress Note - Text Progress Note Date: 10/21/19 Sybil Mercedes Team Note Code dorothy activated @ 10:23 pm. Arrived on the scene shortly after. The patient was noted to be laying in bed, appearing somewhat dyspneic and unresponsive. Vital signs were 156/82, 100% on 5L NC, P 64. As per the RN at the bedside, the patient was undergoing bowel prep for planned colonoscopy/egd on 10/21. General: Non-toxic, in no acute distress, appears stated age, normal weight HEENT: NC/AT, anicteric sclerae, moist conjunctiva, no lid-lag, PERRLA Cardiovascular: S1/S2 wnl, no murmurs, rubs, or gallops Lungs: Clear to auscultation, normal respiratory effort, no accessory muscle use Abdominal: Soft, non-distended, no guarding, or rigidity Skin: Warm, dry Extremities: No edema or contractures Psychiatric: Unresponsive to sternal rub Neuro: Unresponsive to sternal rub. Began moaning and moving extremities after a few minutes of code activation Assessment/Plan Chart reviewed Unresponsiveness, likely seizure in patient with known history of seizure -Ordered prolactin, CBC, CMP, lactic acid, mag, and ABG -Unclear why patient isn't on -Monitor mental status closely. Neurochecks q1h -Possibly due to electrolyte disturbances in setting of bowel prep -Aspiration/seizure/fall precautions -Advised RN to communicate with primary attending regarding possible transfer due to no availability of Neurology -Consider MICU transfer if not planning on transfer to another facility -Ordered single dose of 1g Keppra IVPB
[2019-10-21] MEDS ORDERED: levETIRAcetam IV 1,000 MG in SALINE 1 100ML.BAG IVPB ONE (23:15)
[2019-10-22] MEDS: SODIUM CHLORIDE 0.9% 1,000 ML IV SCH ×2 (00:17→22:13)
[2019-10-22 03:28] LABS: African American GFR (CKD) >90 (>60 ml/min/1.73 sqM); Anion Gap 6 mmol/L; Blood Urea Nitrogen 9 mg/dL (9-20); Calcium 8.3 mg/dL (8.4-10.2); Carbon Dioxide 28 mmol/L (22-30); Chloride 95 mmol/L (98-107); Glucose 84 mg/dL (74-99); Non-African American GFR(CKD) >90 (>60 ml/min/1.73 sqM); Potassium 4.1 mmol/L (3.5-5.1); Sodium 129 mmol/L (137-145)
[2019-10-22 03:57] LABS: Basophils % (A) 1 %; Eosinophils # (A) 0.2 k/uL (0-0.7); Eosinophils % (A) 3 %; HCT 25.8 % (39.0-53.0); HGB 8.1 gm/dL (13.0-17.5); Hypochromasia Moderate; Lymphocytes # (A) 1.2 k/uL (1.0-4.8); Lymphocytes % (A) 19 %; MCH 25.6 pg (25.0-35.0); MCHC 31.3 g/dL (31.0-37.0); MCV 81.9 fL (80.0-100.0); Mean Platelet Volume 7.3; Monocytes # (A) 0.4 k/uL (0-1.0); Monocytes % (A) 7 %; Neutrophils # (A) 4.2 k/uL (1.3-7.7); Neutrophils % (A) 67 %; Platelet Count 252 k/uL (150-450); RBC 3.15 m/uL (4.30-5.90); RDW 14.8 % (11.5-15.5); WBC 6.3 k/uL (3.8-10.6)
[2019-10-22] MEDS: VANCOMYCIN 1,250 MG in SODIUM CHLORIDE 0.9% 250 ML IVPB SCH ×2 (05:46→17:51)
--- NOTE | 2019-10-22 07:45 | P.CONS ---
History of Present Illness - Reason for Consult Consult date: 10/21/19 UTI Requesting physician: Edd Armstrong - Chief Complaint Urinary retention and foul smelling urine x 1 day - History of Present Illness Patient is 84-year-old male presenting to the ER at [facility] on October 16, 2019 for evaluation of weakness and urinary retention patient apparently did not have any urine output for almost 8 to 10 hours before the patient was brought into the ER patient also noticed to have dark and foul- smelling urine and some her mental status changes on arrival to the ER the patient was afebrile and he did have a normal white count UA done on admission which shows large leukocyte esterase with 75 WBC patient was treated with Rocephin urine culture has been finalized with Staphylococcus contaminants last night that has been resistant to ceftriaxone the patient was started on daptomycin infectious was consulted for further recommendation about antibiotic in the meantime the patient did have a Tomlinson catheter currently denies having any headache no chest pain shortness of breath or cough no nausea no vomiting no abdominal pain or any diarrhea. 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, heart cath prior to CABG-none since Past Anesthesia/Blood Transfusion Reactions: No Reported Reaction Past Psychological History: No Psychological Hx Reported Smoking Status: Former smoker Past Alcohol Use History: None Reported Additional Past Alcohol Use History / Comment(s): quit smoking approx 1989, smoked about 30 yrs Past Drug Use History: None Reported - Past Family History Father Family Medical History: Cancer Additional Family Medical History / Comment(s): leukemia Medications and Allergies Home Medications Medication Instructions Recorded Confirmed Type Budesonide-Formot 160-4.5 Mcg 2 puff INHALATION RT-BID 12/27/14 10/17/19 History [Symbicort 160-4.5 Mcg Inhaler] Aspirin 81 mg PO DAILY 08/15/17 10/17/19 History Tamsulosin [Flomax] 0.4 mg PO DAILY #30 cap 10/30/17 10/17/19 Rx Metoprolol Tartrate [Lopressor] 25 mg PO BID tab 05/22/19 10/17/19 Rx Lisinopril [Zestril] 5 mg PO DAILY 06/08/19 10/17/19 History amLODIPine [Norvasc] 2.5 mg PO DAILY 10/17/19 10/17/19 History Allergies Allergy/AdvReac Type Severity Reaction Status Date / Time amoxicillin Allergy Rash/Hives Verified 10/17/19 11:07 Penicillins Allergy Rash/Hives Verified 10/17/19 11:07 Physical Exam Vitals: Vital Signs Temp Pulse Pulse Resp BP Pulse Ox 10/21/19 11:27 84 10/21/19 11:18 88 10/21/19 08:32 98.4 F 86 20 147/67 97 10/21/19 08:15 86 10/21/19 08:02 84 10/21/19 02:46 98.4 F 75 16 142/77 95 10/20/19 19:49 88 10/20/19 19:35 87 97 10/20/19 18:40 97.6 F 96 17 157/74 99 10/20/19 16:54 80 10/20/19 16:42 80 Intake and Output 10/20/19 10/21/19 10/21/19 22:59 06:59 14:59 Output Total 775 501 350 Balance -775 -501 -350 Output: Urine 775 500 350 Stool 1 Other: Voiding Method Indwelling Catheter Indwelling Catheter Indwelling Catheter # Bowel Movements 1 1 Weight 70 kg GENERAL DESCRIPTION: Elderly male up in the chair, no distress. No tachypnea or accessory muscle of respiration use. HEENT: Shows Pallor , no scleral icterus. Oral mucous membrane is dry. NECK: Trachea central, no thyromegaly. LUNGS: Unlabored breathing. Clear to auscultation anteriorly. No wheeze or crackle. HEART: S1, S2, regular rate and rhythm. ABDOMEN: Soft, no tenderness , guarding or rigidity EXTREMITIES: No edema of feet. SKIN: No rash, no masses palpable. NEUROLOGICAL: The patient is awake, alert, oriented x3, mood and affect normal. Results CBC & Chem 7: 10/22/19 02:57 10/22/19 02:57 Labs: Abnormal Lab Results - Last 24 Hours (Table) 10/21/19 10/21/19 Range/Units 06:53 06:53 RBC 3.38 L (4.30-5.90) m/uL Hgb 8.4 L (13.0-17.5) gm/dL Hct 27.8 L (39.0-53.0) % MCH 24.9 L (25.0-35.0) pg MCHC 30.3 L (31.0-37.0) g/dL Sodium 131 L (137-145) mmol/L Chloride 95 L (98-107) mmol/L Total Protein 5.5 L (6.3-8.2) g/dL Albumin 3.2 L (3.5-5.0) g/dL Assessment and Plan Assessment: patient presented to the hospital with urinary retention , and this patient who did have a foul-smelling dark urine did have a positive UA with urine has been finalized with Staphylococcus epidermidis with resistant IV Rocephin with the patient was on though sensitive to vancomycin as well as daptomycin (1) UTI (urinary tract infection) Current Visit: Yes Status: Acute Code(s): N39.0 - URINARY TRACT INFECTION, SITE NOT SPECIFIED SNOMED Code(s): 86675188 Plan: 1-we will repeat a UA and a culture 2-discontinue daptomycin 3-Vancomycin pharmacy to dose her with a target trough of 15 while watching her kidney function and Vanco trough closely. We will follow on clinical condition and cultures to further adjust medication if needed Thank you for this consultation we will follow the patient along with you
[2019-10-22] MEDS: IPRATROPIUM-ALBUTEROL 3 ML NEB INHALATION SCH ×4 (08:57→21:42)
[2019-10-22] MEDS: SYMBICORT 160-4.5 MCG INHALER INHALATION SCH ×2 (08:57→21:42)
[2019-10-22 09:25] LABS: Basophils % (A) 1 %; Eosinophils # (A) 0.4 k/uL (0-0.7); Eosinophils % (A) 6 %; HGB 8.3 gm/dL (13.0-17.5); Hypochromasia Marked; Lymphocytes # (A) 1.2 k/uL (1.0-4.8); Lymphocytes % (A) 21 %; MCH 25.5 pg (25.0-35.0); MCHC 30.6 g/dL (31.0-37.0); MCV 83.3 fL (80.0-100.0); Mean Platelet Volume 7.4; Monocytes # (A) 0.5 k/uL (0-1.0); Monocytes % (A) 8 %; Neutrophils # (A) 3.4 k/uL (1.3-7.7); Neutrophils % (A) 61 %; Platelet Count 287 k/uL (150-450); Poikilocytosis Slight; RBC 3.24 m/uL (4.30-5.90); RDW 14.6 % (11.5-15.5); WBC 5.6 k/uL (3.8-10.6)
[2019-10-22 09:31] LABS: ALT 13 U/L (4-49); AST 24 U/L (17-59); African American GFR (CKD) >90 (>60 ml/min/1.73 sqM); Albumin 3.1 g/dL (3.5-5.0); Alkaline Phosphatase 86 U/L (38-126); Anion Gap 6 mmol/L; Blood Urea Nitrogen 8 mg/dL (9-20); Calcium 8.5 mg/dL (8.4-10.2); Carbon Dioxide 29 mmol/L (22-30); Chloride 96 mmol/L (98-107); Glucose 73 mg/dL (74-99); Non-African American GFR(CKD) >90 (>60 ml/min/1.73 sqM); Sodium 131 mmol/L (137-145); Total Bilirubin 0.4 mg/dL (0.2-1.3); Total Protein 5.4 g/dL (6.3-8.2)
[2019-10-22] MEDS ORDERED: LIDOCAINE 1% INJ 10MG/ML (20 ML MDV) ONE (10:02)
[2019-10-22] MEDS ORDERED: KETAMINE 10 MG/ML 20 ML VIAL ONE (10:02)
[2019-10-22] MEDS ORDERED: PROPOFOL 10 MG/ML 20 ML VIAL IV ONE (10:02)
[2019-10-22] MEDS ORDERED: SODIUM CHLORIDE 0.9% 1,000 ML IV ONE (10:05)
--- NOTE | 2019-10-22 10:24 | P.OP ---
Date of Procedure: 10/22/19 Preoperative Diagnosis: GI bleed Postoperative Diagnosis: Diverticulosis External hemorrhoids Procedure(s) Performed: Colonoscopy Anesthesia: MAC Surgeon: Rosendo Kurtz Pathology: none sent Condition: stable Disposition: PACU Description of Procedure: patient's placed on the endoscopy table in the lateral position. He received IV sedation. Digital rectal exam was performed which revealed external hemorrhoids. The prostate was symmetric without nodules. The possible colonoscope was then placed patient anus and passed throughout the entire colon. The ileocecal valve was visually is. The cecum and ascending colon appeared normal. In the transverse and descending colon there was significant diverticular changes. There is no evidence of active diverticulitis. Scope was then brought back into the sigmoid colon and diverticular changes were seen. Once again there is no evidence of any diverticular bleeding. Scope was then brought back the rectum and this appeared normal. Scope withdrawn and some internal hemorrhoids were noted. Scope was withdrawn for patient. There is no evidence of any active GI bleed is presumed that the patient's. Shibley was due to hemorrhoids or diverticulosis.
[2019-10-22] MEDS: METOPROLOL TARTRATE 25 MG TAB PO SCH ×2 (11:02→22:06)
[2019-10-22] MEDS: FAMOTIDINE 20 MG TAB PO SCH ×2 (11:02→22:07)
[2019-10-22] MEDS: TAMSULOSIN 0.4 MG CAP.ER.24H PO SCH (11:02)
[2019-10-22] MEDS: FUROSEMIDE 20 MG TAB PO SCH ×2 (11:02→17:51)
[2019-10-22] MEDS: ASPIRIN 81 MG PO SCH (11:02)
[2019-10-22] MEDS: POTASSIUM CHLORIDE ER 20 MEQ TAB.ER PO SCH ×2 (11:02→22:06)
[2019-10-22] MEDS: LACTATED RINGERS 1,000 ML IV SCH (11:11)
[2019-10-22 16:34] VITALS: BMI 24.5
--- NOTE | 2019-10-22 18:21 | P.PN ---
Subjective Progress Note Date: 10/22/19 This is an 84-year-old gentleman admitted with acute UTI, GI bleed and multiple other medical issues. Maintained on gentle IV fluid hydration. Evaluated by surgery and is scheduled for both EGD/colonoscopy tomorrow. No further bleeding reported, denies rectal bleeding. Denies abdominal pain. Hemoglobin 9.2. Afebrile. Normal WBC. Urine culture reporting Staphylococcus epidermidis. Denies chest pain, palpitations or shortness of breath. 10/20/19 underwent EGD reportedly mild antral gastritis, moderate hiatal hernia and esophagitis. Colonoscopy unable to be performed secondary to insufficient prep. Patient declined full prep. Colonoscopy prep. reumed for colonoscopy tomorrow. No bleeding. Hemoglobin 8.8. Denies abdominal pain. 10/21/2019 continues refusing to drink bowel prep. Family insistant on colonoscopy. Surgery notified, rescheduled for tomorrow. RN at bedside encouraging patient to follow through with bowel prep. 10/22/2019 during the night patient appeared unresponsive, difficult to awaken, vital signs were stable. No electrolyte imbalances with the exception of sodium 131. Lactic acid 4.7, currently 0.6. Afebrile, normal WBC, hemoglobin 8.8. ABGs reflected pH 7.35, pCO2 43, pO2 206, bicarb 23, O2 sat 99.6, base excess - 2.5 on 40% FiO2. Seizure/aspiration precautions initiated. Neuro checks reported within normal limits. Received a single dose of IV Keppra, with no seizure activity reported. Both family and patient states that he is a very deep sound sleeper and they felt he was in a deep sleep at the time of this event. Patient is currently alert and oriented 3, cranial nerves II through XII grossly intact. Completed bowel prep and awaiting colonoscopy. Denies chest pain, palpitations or increasing shortness of breath. Denies abdominal pain. Denies nausea vomiting. Denies lightheadedness, dizziness or focal deficits. Objective - Vital Signs Vital signs: Vital Signs Temp 98.1 F 10/22/19 15:00 Pulse 92 10/22/19 17:50 Resp 16 10/22/19 15:00 BP 137/72 10/22/19 17:50 Pulse Ox 94 L 10/22/19 15:00 Intake & Output 10/21/19 10/22/19 10/22/19 18:59 06:59 18:59 Intake Total 400 150 500 Output Total 363 707 1398 Balance -100 -656 -670 Weight 71 kg 71 kg Intake: IV 400 150 100 Sodium Chloride 0.9% 1, 400 150 000 ml @ 50 mls/hr IV . Q20H ÓSCAR Rx#:[id number] Intake, IV Titration 400 Amount Sodium Chloride 0.9% 1, 400 000 ml @ 50 mls/hr IV . Q20H ÓSCAR Rx#:[id number] Output: Urine 157 938 7258 Stool 6 Other: Voiding Method Indwelling Catheter Indwelling Catheter Indwelling Catheter # Bowel Movements 1 1 - Exam PHYSICAL EXAM: VITAL SIGNS: [As above] GENERAL: Sitting up in bed, no acute distress HEENT: Conjunctivae normal. eyes normal. Oral mucosa moist NECK: No JVD. No thyroid enlargement. No LNs CARDIOVASCULAR: S1, S2 regular. No murmur RESPIRATION: Breath sounds diminished in the bases. No rhonchi or crackles. ABDOMEN: Soft, nondistended, nontender . No guarding. no masses palpable. Bowel sounds heard. LEGS: positive edema. PSYCHIATRY: Alert and oriented X3, mood and affect normal. NERVOUS SYSTEM: Cranial N 2-12 grossly normal. Diffuse weakness No focal deficits. Strength and sensation grossly intact. Skin: no rash - Labs CBC & Chem 7: 10/22/19 07:36 10/22/19 07:36 Labs: Abnormal Lab Results - Last 24 Hours (Table) 10/21/19 10/21/19 10/21/19 Range/Units 22:25 22:28 22:38 RBC 3.44 L (4.30-5.90) m/uL Hgb 8.8 L (13.0-17.5) gm/dL Hct 28.9 L (39.0-53.0) % MCHC 30.3 L (31.0-37.0) g/dL ABG pO2 (83-108) mmHg ABG Total CO2 (19-24) mmol/L ABG O2 Saturation (94-97) % Sodium (137-145) mmol/L Chloride (98-107) mmol/L BUN (9-20) mg/dL Creatinine (0.66-1.25) mg/dL Glucose (74-99) mg/dL POC Glucose (mg/dL) 124 H (75-99) mg/dL Plasma Lactic Acid Asif 4.7 H* (0.7-2.0) mmol/L Calcium (8.4-10.2) mg/dL Creatine Kinase (55-170) U/L Total Protein (6.3-8.2) g/dL Albumin (3.5-5.0) g/dL 10/21/19 10/21/19 10/22/19 Range/Units 22:38 22:43 02:57 RBC 3.15 L (4.30-5.90) m/uL Hgb 8.1 L (13.0-17.5) gm/dL Hct 25.8 L (39.0-53.0) % MCHC (31.0-37.0) g/dL ABG pO2 206 H (83-108) mmHg ABG Total CO2 25 H (19-24) mmol/L ABG O2 Saturation 99.6 H (94-97) % Sodium 131 L (137-145) mmol/L Chloride 95 L (98-107) mmol/L BUN 8 L (9-20) mg/dL Creatinine 0.58 L (0.66-1.25) mg/dL Glucose 133 H (74-99) mg/dL POC Glucose (mg/dL) (75-99) mg/dL Plasma Lactic Acid Asif (0.7-2.0) mmol/L Calcium (8.4-10.2) mg/dL Creatine Kinase 48 L (55-170) U/L Total Protein 5.5 L (6.3-8.2) g/dL Albumin 3.2 L (3.5-5.0) g/dL 10/22/19 10/22/19 10/22/19 Range/Units 02:57 02:57 07:36 RBC 3.24 L (4.30-5.90) m/uL Hgb 8.3 L (13.0-17.5) gm/dL Hct 27.0 L (39.0-53.0) % MCHC 30.6 L (31.0-37.0) g/dL ABG pO2 (83-108) mmHg ABG Total CO2 (19-24) mmol/L ABG O2 Saturation (94-97) % Sodium 129 L (137-145) mmol/L Chloride 95 L (98-107) mmol/L BUN (9-20) mg/dL Creatinine 0.55 L (0.66-1.25) mg/dL Glucose (74-99) mg/dL POC Glucose (mg/dL) (75-99) mg/dL Plasma Lactic Acid Asif 0.6 L (0.7-2.0) mmol/L Calcium 8.3 L (8.4-10.2) mg/dL Creatine Kinase (55-170) U/L Total Protein (6.3-8.2) g/dL Albumin (3.5-5.0) g/dL 10/22/19 Range/Units 07:36 RBC (4.30-5.90) m/uL Hgb (13.0-17.5) gm/dL Hct (39.0-53.0) % MCHC (31.0-37.0) g/dL ABG pO2 (83-108) mmHg ABG Total CO2 (19-24) mmol/L ABG O2 Saturation (94-97) % Sodium 131 L (137-145) mmol/L Chloride 96 L (98-107) mmol/L BUN 8 L (9-20) mg/dL Creatinine 0.64 L (0.66-1.25) mg/dL Glucose 73 L (74-99) mg/dL POC Glucose (mg/dL) (75-99) mg/dL Plasma Lactic Acid Asif (0.7-2.0) mmol/L Calcium (8.4-10.2) mg/dL Creatine Kinase (55-170) U/L Total Protein 5.4 L (6.3-8.2) g/dL Albumin 3.1 L (3.5-5.0) g/dL Assessment and Plan Assessment: Acute UTI secondary to urinary retention, cultures reporting staphylococcal epidermidis Acute blood loss anemia , possible GI bleed, colonoscopy pending Mild antral gastritis, moderate hiatal hernia and esophagitis per EGD COPD, stable Chronic lumbar radiculopathy with leg weakness Possible seizure activity, EEG pending Plan: Continue on current medication regime ,monitoring and symptomatic treatment. Colonoscopy pending. Maintain seizure precautions. EEG tomorrow secondary to light anesthesia being given for endoscopy .discharge tomorrow after EEG completed and Dr. Armstrong will discuss results of EEG at follow-up visit. The impression and plan of care has been dictated as directed. : I performed a history and examination of this patient, discussed the same with the dictator. I agree with the dictator's note ,documented as a scribe. Any additional findings or plans will be noted.
[2019-10-22 19:01] LABS: Prolactin 20.6 ng/mL (2.1-17.7)
--- NOTE | 2019-10-22 21:14 | PN ---
PROGRESS NOTE DATE OF SERVICE: 10/22/2019. REASON FOR FOLLOWUP: Urinary tract infection. INTERVAL HISTORY: The patient is currently afebrile, has been breathing comfortably. Denies having any nausea. No vomiting or any diarrhea has been reported. EXAMINATION: Blood pressure is 137/72, pulse of 92, temperature 98.1, pulse ox 94% on 2 L nasal cannula. General description is an elderly male lying in bed in no distress. Respiratory system: Unlabored breathing. Clear to auscultation anteriorly. Heart S1, S2. Regular rate and rhythm. ABDOMEN: Soft, no tenderness. Extremities are no edema of the feet. LABS: Hemoglobin 8.3, white count 5.6, BUN of 8, creatinine 0.64. DIAGNOSTIC IMPRESSION AND PLAN: Patient with urinary tract infection. Urine has been Staph epi. Repeat UA cultures currently pending. The patient is covered with Vancomycin adjusting antibiotic on the basis of repeat cultures. Continue supportive care. MMODL / IJN: [id number] /
[2019-10-22] MEDS: LISINOPRIL 5 MG TAB PO SCH (22:04)
[2019-10-23] MEDS: VANCOMYCIN 1,250 MG in SODIUM CHLORIDE 0.9% 250 ML IVPB SCH (06:13)
[2019-10-23 07:21] VITALS: BP 147/70; TEMP 98.6
[2019-10-23 07:21] LABS: Basophils # (A) 0.1 k/uL (0-0.2); Basophils % (A) 1 %; Eosinophils # (A) 0.4 k/uL (0-0.7); Eosinophils % (A) 5 %; HCT 27.5 % (39.0-53.0); HGB 8.5 gm/dL (13.0-17.5); Hypochromasia Moderate; Lymphocytes # (A) 1.2 k/uL (1.0-4.8); Lymphocytes % (A) 16 %; MCH 25.8 pg (25.0-35.0); MCHC 30.9 g/dL (31.0-37.0); MCV 83.7 fL (80.0-100.0); Mean Platelet Volume 7.3; Monocytes # (A) 0.8 k/uL (0-1.0); Monocytes % (A) 10 %; Neutrophils # (A) 4.7 k/uL (1.3-7.7); Neutrophils % (A) 65 %; Platelet Count 287 k/uL (150-450); RBC 3.29 m/uL (4.30-5.90); RDW 15.4 % (11.5-15.5); WBC 7.3 k/uL (3.8-10.6)
[2019-10-23 07:44] LABS: Albumin 3.1 g/dL (3.5-5.0); Magnesium 1.9 mg/dL (1.6-2.3); Potassium 4.3 mmol/L (3.5-5.1); Total Bilirubin 0.2 mg/dL (0.2-1.3); Total Protein 5.5 g/dL (6.3-8.2)
[2019-10-23 07:49] VITALS: RESP 18
[2019-10-23] MEDS: FUROSEMIDE 20 MG TAB PO SCH (08:18)
[2019-10-23] MEDS: METOPROLOL TARTRATE 25 MG TAB PO SCH (08:18)
[2019-10-23] MEDS: TAMSULOSIN 0.4 MG CAP.ER.24H PO SCH (08:18)
[2019-10-23] MEDS: LACTATED RINGERS 1,000 ML IV SCH (08:18)
[2019-10-23] MEDS: FAMOTIDINE 20 MG TAB PO SCH (08:18)
[2019-10-23] MEDS: ASPIRIN 81 MG PO SCH (08:18)
[2019-10-23] MEDS: POTASSIUM CHLORIDE ER 20 MEQ TAB.ER PO SCH (08:18)
[2019-10-23] MEDS: IPRATROPIUM-ALBUTEROL 3 ML NEB INHALATION SCH ×2 (08:42→12:05)
[2019-10-23] MEDS: SYMBICORT 160-4.5 MCG INHALER INHALATION SCH (08:42)
[2019-10-23 12:15] VITALS: PULSE 80
[2019-10-23] MEDS ORDERED: VANCOMYCIN TROUGH DUE 1 EACH MISC MISCELLANE ONE (17:00)
[2019-10-23] MEDS ORDERED: NITROFURANTOIN MONOHYD/M-CRYST 100 MG CAP PO SCH (21:00)
--- NOTE | 2019-10-24 19:41 | EEG ---
ELECTROENCEPHALOGRAM REPORT PROCEDURE DATE: 10/23/2019. ELECTROENCEPHALOGRAM (EEG) REPORT: TECHNIQUE: A routine 18 channel EEG was performed with video using the 10/20 international placement system. HISTORY: Urinary retention, encephalopathy, dementia, hypertension, seizure disorder ? CURRENT MEDICATIONS: Lopressor, lisinopril, Lasix, aspirin. STUDY DURATION: 24 minutes. FINDINGS: BACKGROUND: The background activity consisted of 7 to 8 hertz rhythmic waveforms symmetrically distributed over both posterior quadrants. ACTIVATION: Hyperventilation: Not performed. Photic stimulation: No driving seen. Sleep: Drowsy. ABNORMALITIES: Intermittent diffuse 5-7 hertz polymorphic theta range slowing was seen. IMPRESSION: Mildly abnormal EEG. The intermittent diffuse theta range slowing mentioned above is not epileptiform in nature. These findings indicate mild diffuse cerebral dysfunction which may in part be due to medication effect. No seizures were recorded. No epileptiform activity was present. Please note that background frequencies did not exceed 8 hertz. However, given the patient's age, this can be considered within normal limits. MMODL / IJN: [id number] / FAUSTINO
--- NOTE | 2019-10-26 09:50 | CDI ---
Documentation Clarification Form Date: 10/26/2019 09:37:30 AM From: Armando you have a question about this query, please contact Nabila Talbert, Director Of Market Research at [phone] between 8am and 5pm.tristen Gomez Phone: Admit Date: 10/17/2019 01:19:00 AM Patient Name: Holland Garcia Visit Number: [id number] Discharge Date: 10/23/2019 12:45:00 PM ATTENTION: The Clinical Documentation Specialists (CDI) and [facility] Coding Staff appreciate your assistance in clarifying documentation. Please respond to the clarification below the line at the bottom and electronically sign. The CDI & [facility] Coding staff will review the response and follow-up if needed. Please note: Queries are made part of the Legal Health Record. If you have any questions, please contact the author of this message via ITS. Dr. Edd Armstrong Patient has Staph UTI. H and P documents admit with possible sepsis. Please clarify if patient has sepsis or was this ruled out. History/Risk Factors: Patient with UTI WBC 8.4 Lactic acid: 1.1 Vitals signs on admission: 97.9 F 63 bpm 130/65 99 RA Treatment: IV antibiotics rehydration In your professional opinion, please clarify if these findings signify one of the following conditions, whether the patient has sepsis or was this ruled out. Condition Sepsis ruled out Sepsis Severe Sepsis Other, please specify Unable to determine ISIRS Criteria (2 or more of the following may indicate SIRS): -Temperature < 96.8F (36C) or > 101.0F (38.3C) -Heart Rate > 90 bpm -Respiratory Rate > 20 breaths/min or PaCO2 < 32 mmHg -White Blood Cell Count > 12,000 or < 4,000 cells/mm3 or > 10% bands -Lactate >2.0 mmol/L (>4.0 is equivalent to septic shock) MTDD
--- NOTE | 2019-10-28 07:34 | DS ---
DISCHARGE SUMMARY ADDENDUM: Sepsis ruled in. MMODL / IJN: [id number] /
--- NOTE | 2019-11-01 12:10 | DS ---
DISCHARGE SUMMARY DATE OF ADMISSION: 10/17/2019 DATE OF DISCHARGE: 10/23/2019 MEDICATIONS: 1. Symbicort 160/4.5 two puffs b.i.d. 2. Aspirin 81 mg daily. 3. Flomax 0.4 mg daily. 4. Lopressor 25 b.i.d. 5. Zestril 5 mg daily. 6. Norvasc 2.5 daily. 7. DuoNeb updraft q.i.d. 8. Potassium chloride 20 mEq b.i.d. 9. Lasix 20 mg b.i.d. 10.Macrobid 100 mg b.i.d. for a week. 11.Pepcid 20 mg b.i.d. DIAGNOSIS: Metabolic encephalopathy, dehydration, UTI, sepsis secondary to UTI and dehydration, tubular necrosis, GI bleed with Hemoccult-positive stools, which showed diverticulosis on colonoscopy and EGD shows some gastritis. Patient is cleared from Surgery for discharge after no bleeding was seen. He was also seen, there is no neurologist, but there was a question of whether he had a seizure at night. EEG was read as normal. He was just hard to awaken at night. He had no real seizure activity. He will follow up as an outpatient. MMODL / IJN: [id number] /
== END 2019-10-23 12:45 | disposition home or self-care (01) | DRG 871 ==
LOC: EC 22:39 → 4SSUR 10-17 01:19
PROVIDERS: ADMIT Family Medicine; ATTEND Family Medicine
PROC: 0DB78ZX Excision of Stomach, Pylorus, Via Natural or Artificial Opening Endoscopic, Diagnostic (ICD-10-PCS; principal; 2019-10-20 11:45)
PROC: 0DB58ZX Excision of Esophagus, Via Natural or Artificial Opening Endoscopic, Diagnostic (ICD-10-PCS; principal; 2019-10-20 11:45)
PROC: 0DJD8ZZ Inspection of Lower Intestinal Tract, Via Natural or Artificial Opening Endoscopic (ICD-10-PCS; 2019-10-22)
DX: A41.1 Sepsis due to other specified staphylococcus (principal); K57.31 Diverticulosis of large intestine without perforation or abscess with bleeding; N39.0 Urinary tract infection, site not specified; Z16.20 Resistance to unspecified antibiotic; D62 Acute posthemorrhagic anemia; E87.1 Hypo-osmolality and hyponatremia; Z16.19 Resistance to other specified beta lactam antibiotics; B95.7 Other staphylococcus as the cause of diseases classified elsewhere; Z85.46 Personal history of malignant neoplasm of prostate; Z92.3 Personal history of irradiation; E61.1 Iron deficiency; F03.90 Unspecified dementia, unspecified severity, without behavioral disturbance, psychotic disturbance, mood disturbance, and anxiety; G40.909 Epilepsy, unspecified, not intractable, without status epilepticus; I10 Essential (primary) hypertension; I25.10 Atherosclerotic heart disease of native coronary artery without angina pectoris; J44.9 Chronic obstructive pulmonary disease, unspecified; K20.9 Esophagitis, unspecified; K44.9 Diaphragmatic hernia without obstruction or gangrene; K29.70 Gastritis, unspecified, without bleeding; K64.4 Residual hemorrhoidal skin tags; M54.16 Radiculopathy, lumbar region; Z87.442 Personal history of urinary calculi; Z79.51 Long term (current) use of inhaled steroids; Z79.82 Long term (current) use of aspirin; Z79.899 Other long term (current) drug therapy; Z80.6 Family history of leukemia; Z87.891 Personal history of nicotine dependence; Z95.1 Presence of aortocoronary bypass graft
CPT/HCPCS: 36415; 36600; 43239; 45378; 51702; 71046; 76770; 80048; 80053; 81001; 82272; 82550; 82607; 82728; 82746; 82805; 83540; 83550; 83605; 83735; 84146; 84466; 84484; 85025; 85045; 85610; 85730; 86850; 86900; 86901; 87077; 87086; 87186; 88305; 88312; 93005; 94640; 94760; 95819; 96365; 96375; 99285

== ENCOUNTER 2020-01-21 11:10 | Emergency (ER) | payer MEDICARE ==
[2020-01-21] MEDS: SODIUM BICARB 8.4% 50 ML SYR (1 MEQ/ML) IV STA ×2 (11:12→11:14)
[2020-01-21] MEDS ORDERED: CALCIUM CHLORIDE 100 MG/ML 10 ML SYRINGE IVP STA (11:12)
--- NOTE | 2020-01-21 11:31 | ED ---
General Adult HPI - General Chief complaint: Cardiac Arrest/CPR Stated complaint: Unresponsive Time Seen by Provider: 01/21/20 11:25 Source: EMS Mode of arrival: wheelchair Limitations: altered mental status, physical limitation - History of Present Illness Initial comments: Dictation was produced using [email or web address] dictation software. please excuse any grammatical, word or spelling errors. This patient was cared for during a federal and state declared state of emergency secondary to Covid 19 Chief Complaint: 84-year-old male brought in for cardiac arrest History of Present Illness: 84-year-old male with known extensive cardiac history. He presents via EMS from home. Patient had a witnessed arrest at home. EMS was called patient had CPR initiated by family. Upon EMS and fire department arrival CPR was resumed. According to EMS patient had initial asystole. He then went into various cardiac rhythm including ventricular fibr illation and ventricular tachycardia. Patient received 9 doses of epinephrine during CPR. EMS intubated patient. According to EMS upon initial ET tube placement patient had large amounts of red frothy oral discharge. Unable to obtain ROS significant mental status PHYSICAL EXAM: General Impression: An tendon, nonresponsive HEENT: ET tube in place, normocephalic atraumatic Cardiovascular: No pulse Chest: Intubated, bilateral breath sounds, able to bag Abdomen: abdomen soft, multiple scars Musculoskeletal: Warm distal extremities Neurological: 3 mm pupil, equal. Last paralysis, no movement Skin: Intact with no visualized rashes ED course: 84-year-old male presents with cardiac arrest. According to EMS patient had CPR for approximately one hour by prehospital providers. He received 9 doses of epinephrine. Patient was accepted by EMS in place in trauma 1 resuscitation bay. CPR was continued. Upon initial evaluation patient had no pulse. He had a bradycardic wide QRS complex rhythm on the monitor. CPR was continued for approximately 4-5 cycles with no retrieval of palpable pulse. Patient was given an calcium chloride and 2 Amps of sodium bicarbonate. Ultrasound was used to assist in seeing if there was a pulse in the right femoral groin. There is no ultrasound evidence for pulse. Ultrasound of the heart was performed showing non-perfusable cardiac activity. Time of was called at 11:22 AM. - Related Data Home Medications Medication Instructions Recorded Confirmed Budesonide-Formot 160-4.5 Mcg 2 puff INHALATION RT-BID 12/27/14 10/17/19 [Symbicort 160-4.5 Mcg Inhaler] Aspirin 81 mg PO DAILY 08/15/17 10/17/19 Lisinopril [Zestril] 5 mg PO DAILY 06/08/19 10/17/19 Previous Rx's Medication Instructions Recorded Tamsulosin [Flomax] 0.4 mg PO DAILY #30 cap 10/30/17 Metoprolol Tartrate [Lopressor] 25 mg PO BID tab 05/22/19 Famotidine [Pepcid] 20 mg PO BID tab 10/23/19 Furosemide [Lasix] 20 mg PO BID@0900,1600 tab 10/23/19 Ipratropium-Albuterol Nebulize 3 ml INHALATION RT-QID ml 10/23/19 [Duoneb 0.5 mg-3 mg/3 ml Soln] Nitrofurantoin Monohyd/M-Cryst 100 mg PO BID cap 10/23/19 [Macrobid] Potassium Chloride ER [K-Dur 20] 20 meq PO BID tab.er.prt 10/23/19 Allergies Allergy/AdvReac Type Severity Reaction Status Date / Time amoxicillin Allergy Rash/Hives Verified 10/17/19 11:07 Penicillins Allergy Rash/Hives Verified 10/17/19 11:07 Review of Systems ROS Statement: Those systems with pertinent positive or pertinent negative responses have been documented in the HPI. ROS Other: All systems not noted in ROS Statement are negative. 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, heart cath prior to CABG-none since Past Anesthesia/Blood Transfusion Reactions: No Reported Reaction Past Psychological History: No Psychological Hx Reported Smoking Status: Former smoker Past Alcohol Use History: None Reported Past Drug Use History: None Reported - Past Family History Father Family Medical History: Cancer Additional Family Medical History / Comment(s): leukemia General Exam Limitations: altered mental status, physical limitation Disposition Clinical Impression: Cardiac arrest Disposition: Condition: Undetermined Referrals: Edd Armstrong MD [Primary Care Provider] - 1-2 days Time of Disposition: 11:31 Preliminary Cause of : cardiac arrest
== END 2020-01-21 12:43 | disposition expired ==
LOC: EC 11:10
DX: I46.9 Cardiac arrest, cause unspecified (principal); J44.9 Chronic obstructive pulmonary disease, unspecified; I25.10 Atherosclerotic heart disease of native coronary artery without angina pectoris; I10 Essential (primary) hypertension; Z85.46 Personal history of malignant neoplasm of prostate; Z95.1 Presence of aortocoronary bypass graft; Z95.818 Presence of other cardiac implants and grafts; Z87.891 Personal history of nicotine dependence; Z79.51 Long term (current) use of inhaled steroids; Z79.82 Long term (current) use of aspirin; Z79.899 Other long term (current) drug therapy; Z88.0 Allergy status to penicillin
CPT/HCPCS: 92950; 96374; 99285